=== PATIENT | female | born 2000 | race Asian ===

== ENCOUNTER 2025-07-11 02:57 | Inpatient (IN) | payer OTHER, MEDICAID, SELFPAY ==
[2025-07-11] VITALS (141 sets, daily range): BP systolic 66–140; BP diastolic 33–79; PULSE 60–136; RESP 16; TEMP 36.5–37.2; O2SAT 86–100; BMI 24.5
[2025-07-11 03:06] LABS: ROM Internal Control Test YES-OK TO RESULT pt. (Internal QC)
[2025-07-11 03:10] LABS: ROM Patient Test POSITIVE (Negative); Record Kit Lot#, ROM+ K3358
--- OUTSIDE RECORDS SUMMARY | 2025-07-11 03:20 | XMS RPT_ITS | CCD ---
Author Organization [facility] CliniSymo Care Team Providers Care Software Release Engineer Name Role Phone Roselyn OCCUPATIONAL THERAPY ASST.Aayush ROSADO Primary Care Provider ROSELYN AAYUSH M Primary Care Unavailable MELODY SAUER Referring Unavailable DANNIELLE ALMARAZ Attending Unavailable ORIANA CAMACHO Referring Unavailable ROSELYN, AAYUSH M Primary Care Unavailable CRESCENCIO MOLINA Attending Unavailable ORIANA CAMACHO Referring Unavailable ROSELYN, AAYUSH M Primary Care Unavailable CRESCENCIO MOLINA Attending Unavailable ORIANA CAMACHO Referring Unavailable ROSELYN, AAYUSH M Primary Care Unavailable DANNIELLE ALMARAZ Attending Unavailable ORIANA CAMACHO Referring Unavailable ROSELYN, AAYUSH M Primary Care Unavailable DANNIELLE ALMARAZ Attending Unavailable ORIANA CAMACHO Referring Unavailable ROSELYN, AAYUSH M Primary Care Unavailable ROSELYN, AAYUSH M Attending Unavailable ROSELYN, AAYUSH M Primary Care Unavailable ROSELYN, AAYUSH M Referring Unavailable ROSELYN, AAYUSH M Primary Care Unavailable DANNIELLE ALMARAZ Attending Unavailable ORIANA CAMACHO Referring Unavailable ROSELYN, AAYUSH M Primary Care Unavailable SHAWNA WILSON Referring Unavailable ROSELYN, AAYUSH M Primary Care Unavailable SHAWNA WILSON Referring Unavailable SHAWNA WILSON Attending Unavailable ROSELYN, AAYUSH M Primary Care Unavailable HAKOFFI, AUGUSTIN Referring Unavailable ROSELYN, AAYUSH M Primary Care Unavailable SHAWNA WILSON Attending Unavailable ROSELYN, AAYUSH M Primary Care Unavailable SHAWNA WILSON Attending Unavailable ROSELYN, AAYUSH M Primary Care Unavailable MELODY SAUER Attending Unavailable ROSELYN, AAYUSH M Primary Care Unavailable MELODY SAUER Attending Unavailable ROSELYN, AAYUSH M Primary Care Unavailable SHAWNA WILSON Attending Unavailable ROSELYN, AAYUSH M Primary Care Unavailable HAURY, AUGUSTIN Referring Unavailable ROSELYN, AAYUSH M Primary Care Unavailable ORIANA CAMACHO Attending Unavailable SHAWNA WILSON Referring Unavailable ROSELYN, AAYUSH M Primary Care Unavailable MELODY SAUER Attending Unavailable ROSELYN, AAYUSH M Primary Care Unavailable ROSELYN, AAYUSH M Primary Care Unavailable SHAWNA WILSON Attending Unavailable ROSELYN, AAYUSH M Primary Care Unavailable ROSELYN, AAYUSH M Primary Care Unavailable ORIANA CAMACHO Attending Unavailable ROSELYN, AAYUSH M Primary Care Unavailable PEREZ FRENCH Attending Unavailable AUGUSTIN BOYCE Attending Unavailable ROSELYN, AAYUSH M Primary Care Unavailable ROSELYN, AAYUSH M Primary Care Unavailable MANDY CALDWELL Attending ZINA Hurd Attending Unavailable ROSELYN, AAYUSH M Primary Care Unavailable ROSELYN, AAYUSH M Primary Care Unavailable BOUCHRA CARRASCO Attending Unavailable AUGUSTIN BOYCE Attending Unavailable ROSELYN, AAYUSH M Primary Care Unavailable AUGUSTIN BOYCE Referring Unavailable ROSELYN, AAYUSH M Primary Care Unavailable ROSELYN, AAYUSH M Primary Care Unavailable MANDY CALDWELL Attending Pepito mcmanus ROSELYN, AAYUSH M Primary Care Unavailable MELODY SAUER Attending Unavailable Medications Current Medications Medication Drug Class(es) Dates Sig (Normalized) Sig (Original) aspirin 81 mg delayed release oral tablet (20 sources) Platelet Aggregation Inhibitor, Nonsteroidal Anti-inflammatory Drug Start: 12-30-2024 take 1 tablet by mouth once daily aspirin, enteric coated (ECOTRIN LOW STRENGTH) 81 mg EC tablet Indications: Encounter for supervision of high risk in first trimester, antepartum (HCC) , 7 weeks gestation of (HCC) , with uncertain dates in first trimester (HCC) , Depression with anxiety , Hx of migraines Take 1 tablet by mouth once daily. 90 tablet 3 12/30/2024 Active hydrocortisone 25 mg/ml topical cream (17 sources) Corticosteroid Start: 04-05-2025 hydrocortisone (ANUSOL-HC) 2.5 % rectal cream by RECTAL route two times a day. 28 g 1 04/05/2025 Active hydrocortisone acetate 5 mg/ml / lidocaine hydrochloride 30 mg/ml rectal cream (12 sources) Antiarrhythmic, Corticosteroid, Amide Local Anesthetic Start: 05-04-2025 Lidocaine-Hydrocort isone Ac 3-0.5 % crea by RECTAL route four times a day as needed. 7 g 3 05/04/2025 Active lidocaine 0.04 mg/mg topical gel (2 sources) Antiarrhythmic, Amide Local Anesthetic Start: 05-11-2025 End: 05-18-2025 lidocaine 4 % gel Apply to affected area as needed for up to 7 days. 30 g 05/11/2025 05/18/2025 Active pantoprazole 20 mg delayed release oral tablet (5 sources) Proton Pump Inhibitor Start: 06-01-2025 take 1 tablet by mouth once daily pantoprazole DR (PROTONIX) 20 mg tablet Take 1 tablet by mouth once daily. 30 tablet 2 06/01/2025 Active no115/iron/folic acid ( 19 ORAL) (20 sources) no115/iron/folic acid ( 19 ORAL) Take by mouth. Active sertraline 100 mg oral tablet (20 sources) Serotonin Reuptake Inhibitor Start: 02-24-2025 take 1 tablet by mouth once daily sertraline (ZOLOFT) 100 mg tablet Indications: Depression with anxiety Take 1 tablet by mouth once daily. 90 tablet 2 02/24/2025 Active Start: 01-06-2025 take 1 tablet by jose th once daily sertraline (ZOLOFT) 50 mg tablet Indications: Depression with anxiety Take 1 tablet by mouth once daily. 90 tablet 2 01/06/2025 Active Completed/Discontinued Medications Medication Drug Class(es) Dates Sig (Normalized) Sig (Original) FLUoxetine 10 mg oral capsule (1 source) Serotonin Reuptake Inhibitor End: 12-30-2024 take 1 capsule by mouth once daily in the morning FLUoxetine (PROZAC) 10 mg capsule TAKE 1 CAPSULE BY MOUTH DAILY IN THE MORNING 12/30/2024 Discontinued propranolol hydrochloride 10 mg oral tablet (1 source) beta-Adrenergic Tiffanie End: 12-30-2024 take 1 tablet by mouth once daily as needed propranolol (INDERAL) 10 mg tablet Take 1 tablet by mouth once daily as needed. 12/30/2024 Discontinued SUMAtriptan 50 mg oral tablet (1 source) Serotonin-1b and Serotonin-1d Receptor Agonist Start: 08-04-2024 End: 12-30-2024 take 1 tablet by mouth every two hours as needed SUMAtriptan (IMITREX) 50 mg tablet TAKE 1 TABLET BY MOUTH AND REPEAT AFTER 2 HOURS NEEDED 1 DAY 08/04/2024 12/30/2024 Discontinued Problems Active Problems Problem Classification Problem Date Documented Da te Episodic/Chronic Anal and rectal conditions (3 sources) Anorectal pain; Translations: [Other specified diseases of anus and rectum] Onset: 05-05-2025 05-04-2025 Episodic Anxiety disorders (20 sources) Mixed anxiety and depressive disorder; Translations: [Other specified anxiety disorders] Onset: 12-30-2024 12-30-2024 Chronic Genitourinary symptoms and ill-defined conditions (4 sources) Increased frequency of urination; Translations: [Frequency of micturition] Onset: 01-06-2025 01-06-2025 Episodic Hemorrhoids (9 sources) Hemorrhoids; Translations: [Unspecified hemorrhoids] Onset: 04-05-2025 04-05-2025 Episodic Other complications of (13 sources) High risk ; Translations: [Supervision of high risk , unspecified, first trimester] Onset: 12-30-2024 12-30-2024 Episodic Other complications of (1 source) Vaginal discharge; Translations: [Other specified related conditions, first trimester] 01-06-2025 Episodic Other complications of (9 sources) Complication occurring during ; Translations: [ complication before ] Onset: 05-11-2025 05-11-2025 Episodic Other complications of (7 sources) Heartburn; Translations: [Other specified related conditions, third trimester] Onset: 06-01-2025 06-01-2025 Episodic Other complications of (1 source) Diseases of the digestive system complicating , third trimester; Translations: [Constipation during in third trimester (HCC)] Onset: 06-15-2025 Episodic Other complications of (1 source) Other specified related conditions, third trimester; Translations: [Heartburn during in third trimester (HCC)] Onset: 06-01-2025 Episodic Other female genital disorders (1 source) Pruritus of vagina; Translations: [Other specified noninflammatory disorders of vagina] 05-18-2025 Episodic Other female genital disorders (2 sources) Other specified noninflammatory disorders of vagina; Translations: [Vaginal itching] Onset: 01-06-2025 Episodic Other gastrointestinal disorders (20 sources) Irritable bowel syndrome characterized by constipation; Translations: [Irritable bowel syndrome with constipation] Onset: 03-09-2025 03-09-2025 Chronic Other gastrointestinal disorders (2 sources) Irritable bowel syndrome with constipation; Translations: [Irritable bowel syndrome with constipation] Onset: 03-09-2025 Chronic Other gastrointestinal disorders (3 sources) Constipation, unspecified; Translations: [Constipation during in first trimester (HCC)] Onset: 12-30-2024 Episodic Other gastrointestinal disorders (1 source) Heartburn; Translations: [Heartburn during in third trimester (HCC)] Onset: 06-01-2025 Episodic Other and delivery including normal (20 sources) test positive; Translations: [Encounter for test, result positive] Onset: 12-27-2024 Resolved: 06-01-2025 12-15-2024 Episodic Residual codes; unclassified (1 source) Medical care unavailable; Translations: [Procedure and treatment not carried out for other reasons] 12-24-2024 Episodic Residual codes; unclassified (3 sources) Gestation period, 7 weeks; Translations: [Less than 8 weeks gestation of ] 12-30-2024 Episodic Residual codes; unclassified (1 source) Gestation period, 9 weeks; Translations: [9 weeks gestation of ] 01-06-2025 Episodic Residual codes; unclassified (4 sources) Gestation period, 14 weeks; Translations: [14 weeks gestation of ] 02-09-2025 Episodic Residual codes; unclassified (1 source) Gestation period, 18 weeks; Translations: [18 weeks gestation of ] 03-09-2025 Episodic Residual codes; unclassified (1 source) Gestation period, 20 weeks; Translations: [20 weeks gestation of ] 03-28-2025 Episodic Residual codes; unclassified (1 source) Gestation period, 22 weeks; Translations: [22 weeks gestation of ] 04-05-2025 Episodic Residual codes; unclassified (1 source) Gestation period, 23 weeks; Translations: [23 weeks gestation of ] 04-15-2025 Episodic Residual codes; unclassified (1 source) Gestation period, 26 weeks; Translations: [26 weeks gestation of ] 05-05-2025 Episodic Residual codes; unclassified (1 source) Gestation period, 28 weeks; Translations: [28 weeks gestation of ] 05-18-2025 Episodic Residual codes; unclassified (1 source) Gestation period, 30 weeks; Translations: [30 weeks gestation of ] 06-01-2025 Episodic Residual codes; unclassified (1 source) Gestation period, 32 weeks; Translations: [32 weeks gestation of ] 06-15-2025 Episodic Residual codes; unclassified (1 source) 34 weeks gestation of ; Translations: [34 weeks gestation of (HCC)] Onset: 06-29-2025 Episodic Residual codes; unclassified (1 source) 32 weeks gestation of ; Translations: [32 weeks gestation of (HCC)] Onset: 06-15-2025 Episodic Residual codes; unclassified (1 source) 30 weeks gestation of ; Translations: [30 weeks gestation of (HCC)] Onset: 06-01-2025 Episodic Residual codes; unclassified (1 source) 28 weeks gestation of ; Translations: [28 weeks gestation of (HCC)] Onset: 05-18-2025 Episodic Residual codes; unclassified (1 source) 26 weeks gestation of ; Translations: [26 weeks gestation of (HCC)] Onset: 05-05-2025 Episodic Unclassified (18 sources) [facility] Education - COMMON Onset: 12-30-2024 12-30-2024 Unclassified (18 sources) Education - [place] Onset: 12-30-2024 12-30-2024 Unclassified (1 source) complication before (HCC); Translations: [ complication before (HCC)] Onset: 05-11-2025 Past or Other Problems Problem Classification Problem Date Documented Date Episodic/Chronic Immunizations and screening for infectious disease (12 sources) Patient encounter status; Translations: [Encounter for screening for infections with a predominantly sexual mode of transmission] Onset: 12-13-2024 12-13-2024 Episodic Other complications of (20 sources) Vomiting of , unspecified; Translations: [Unspecified vomiting of , unspecified as to episode of care or not applicable] Onset: 12-30-2024 Resolved: 06-01-2025 12-30-2024 Episodic Other complications of (20 sources) Diseases of the digestive system complicating , first trimester; Translations: [Other current conditions classifiable elsewhere of mother, antepartum condition or complication] Onset: 12-30-2024 Resolved: 06-15-2025 12-30-2024 Episodic Other complications of (1 source) Supervision of high risk , unspecified, second trimester; Translations: [Encounter for supervision of high risk in second trimester, antepartum ([facility])] Onset: 12-30-2024 Episodic Other complications of (1 source) Supervision of high risk , unspecified, first trimester; Translations: [Encounter for supervision of high risk in first trimester, antepartum ([facility])] Onset: 12-30-2024 Episodic Other complications of (1 source) Other specified related conditions, first trimester; Translations: [Vaginal discharge during in first trimester ([facility])] Onset: 01-06-2025 Episodic Other connective tissue disease (20 sources) Spasm; Translations: [Other muscle spasm] Onset: 03-09-2025 03-09-2025 Episodic Other connective tissue disease (1 source) Other muscle spasm; Translations: [Muscle spasm] Onset: 03-09-2025 Episodic Other nervous system disorders (20 sources) H/O: migraine; Translations: [Personal history of other diseases of the nervous system and sense organs] Onset: 12-30-2024 12-30-2024 Episodic Other nervous system disorders (1 source) Personal history of other diseases of the nervous system and sense organs; Translations: [Hx of migraines] Onset: 12-30-2024 Episodic Other screening for suspected conditions (not mental disorders or infectious disease) (6 sources) Encounter for screening for diseases of the blood and blood-forming organs and certain disorders involving the immune mechanism; Translations: [Encounter for screening for diabetes mellitus] Onset: 12-13-2024 Episodic Ovarian cyst (20 sources) Cyst of right ovary; Translations: [Unspecified ovarian cyst, right side] Onset: 01-27-2025 01-27-2025 Episodic Residual codes; unclassified (1 source) 22 weeks gestation of ; Translations: [22 weeks gestation of ([facility])] Onset: 04-05-2025 Episodic Residual codes; unclassified (1 source) 14 weeks gestation of ; Translations: [14 weeks gestation of ([facility])] Onset: 03-28-2025 Episodic Residual codes; unclassified (1 source) 20 weeks gestation of ; Translations: [20 weeks gestation of ([facility])] Onset: 03-28-2025 Episodic Residual codes; unclassified (1 source) 18 weeks gestation of ; Translations: [18 weeks gestation of (HCC)] Onset: 03-09-2025 Episodic Residual codes; unclassified (1 source) 16 weeks gestation of ; Translations: [16 weeks gestation of (HCC)] Onset: 02-24-2025 Episodic Residual codes; unclassified (1 source) Less than 8 weeks gestation of ; Translations: [7 weeks gestation of (HCC)] Onset: 01-27-2025 Episodic Residual codes; unclassified (1 source) 12 weeks gestation of ; Translations: [12 weeks gestation of (HCC)] Onset: 01-27-2025 Episodic Residual codes; unclassified (1 source) 9 weeks gestation of ; Translations: [9 weeks gestation of ([facility])] Onset: 01-06-2025 Episodic Residual codes; unclassified (1 source) Procedure and treatment not carried out for other reasons; Translations: [Treatment not available] Onset: 12-24-2024 Episodic NEGATED: Highlighted row has been ruled out!Unclassified (1 source) No known active problems 12-13-2024 Results Test Name Value Interpretation Reference Range Facil ity CNOVon 06-29-2025 CNOV Office Visit (OBGYWM ) RENETTA KAUFMAN ([id number]) 2 F Date Time Provider Department 06/29/25 2:30 PM SHAWNA WILSON OBGYWM During your visit today, we recorded the following information about you: Blood pressure Weight 96/62 61.2 kg Shawna Wilson APRN.CNM 06/29/2025 3:25 PM Signed CP-CENTERING S: Renetta Kaufman is a 25 year old female who presents at 34 weeks gestation for a routine visit/ centering group. Denies headache, visual changes, chest pain, shortness of breath, vaginal bleeding, leakage of fluid, or dysuria. Feeling well, no complaints. O: See flow sheet Gen: No apparent distress Abd: Gravid, non tender ASSESSMENT/PLAN: 1. 34 weeks gestation of 2. Encounter for supervision of normal first in third trimester 3. Heartburn during in third trimester 4. Depression with anxiety - Attending CBE class this weekend - Protonix 20 mg PO Daily - Continue Zoloft 100 mg PO Daily - Continue vitamin and ASA - Patient reports feeling increased anxiety over baby/upcoming delivery. Has racing thoughts at night. - Support provided and questions answered- may talk to psych about increase in Zoloft or adding in anti-anxiety medication. - Discussed stopping herself from getting onto internet/ [employer] about questions and instead asking provider etc. - PTL precautions reviewed and when to call office - RTO 2 weeks for SIENA with GBS Shawna Wilson APRN.Patt Israel LPN 06/29/2025 2:34 PM Signed SEQUENTIAL SCREENINGS [facility] offers sequential screenings for women who are interested in screenings for chromosomal abnormalities and certain defects during a . The sequential screen combines ultrasound and blood tests to determine the risk of chromosomal abnormalities, including Down's Syndrome (Trisomy 21) and Trisomy 18, as well as open neural tube defects including spina bifida. Ultrasound examination is performed between 11 weeks and 13 weeks gestational age. Blood tests are drawn after the ultrasound and again later in the between 15 and 21 weeks gestational age. Please let your physician know if you are interested in this testing. It will require an appointment with our mechanical sound technician. This is not an ultrasound performed by a physician in our office during a routine visit. SIGNS AND SYMPTOMS OF LABOR 1. Contractions every 10 minutes or more often 2. Clear, pink, or brownish fluid (water) leaking from vagina 3. Feeling that baby is pushing down, pressure 4. Low, dull backache 5. Cramps that feel like a period 6. Cramps with or without diarrhea If you notice any of the above symptoms, contact our office at [phone] and ask to speak with a nurse. After hours, you can call doctors registry at [phone] OR call [facility] at [phone] and ask to have the doctor business operations manager paged. If you consider this an emergency, dial or go to your nearest emergency department. NEED HELP? Are you dealing with a violent or abusive relationship? Are you a victim of rape or sexual assult? Call [facility] ([place]) 24 hour Crisis Hotline: 908.179.1387 or 399-337-9618. MANUAL Your Guide to a Healthy manual is now on-line. Visit [email or web address] to download your free copy Allergies As of Date: 06/29/2025 (No Known Allergies) Date Reviewed: 06/29/2025 Reviewed by: Patt Bennett LPN - Fully Assessed Reason for Visit: Care [86] Primary Visit Diagnosis:34 weeks gestation of ([facility]) [Z3A.34] Other Visit Diagnoses:Encounter for supervision of normal first in third trimester ([facility]) [Z34.03] Heartburn during in third trimester ([facility]) [O26.893, R12] Depression with anxiety [F41.8] Order(s):URINE OB DIP B/O [[id number]] Order #: [id number] Prescriptions as of 06/29/2025 - pantoprazole DR (PROTONIX) 20 mg tablet Take 1 tablet by mouth once daily. - sertraline (ZOLOFT) 100 mg tablet Take 1 tablet by mouth once daily. - aspirin, enteric coated (ECOTRIN LOW STRENGTH) 81 mg EC tablet Take 1 tablet by mouth once daily. - no115/iron/folic acid ( 19 ORAL) Take by mouth. Problem List As Of Date 06/29/2025 Noted Resolved Depression with anxiety [F41.8] 12/30/2024 Hx of migraines [Z86.69] 12/30/2024 Nausea and vomiting during (HCC) [O21*12/30/2024 06/01/2025 Constipation during in first trimeste*12/30/2024 with uncertain dates in first trimest*12/30/2024 06/01/2025 Ovarian cyst, right [N83.201] 01/27/2025 Muscle spasm [M62.838] 03/09/2025 Irritable bowel syndrome with constipation [K58*03/09/2025 Encounter for supervision of normal first pregn*03/09/2025 M-Power [O99.891] 05/11/2025 Heartburn during (HCC) [O26.899, R12 (more content not included)... Normal [facility] CNPNon 06-29-2025 CNPN Telephone (OBGYWM) RENETTA KAUFMAN ([id number]) 2 F Date Time Provider Department 06/29/25 SHAWNA WILSON OBFUNMILAYO During your visit today, we recorded the following information about you: Elijah Marks, RN 06/29/2025 4:44 PM Signed I called patient but she was unable to hear me . If she calls back let her know I am having Luz Elena schedule the remainder of her Centering appointments and weekly appointments after 36weeks. They will be available to view in [employer] Allergies As of Date: 06/29/2025 (No Known Allergies) Date Reviewed: 06/29/2025 Reviewed by: Patt Bennett LPN - Fully Assessed Reason for Visit: Appointment [[id number]] Prescriptions as of 06/29/2025 - pantoprazole DR (PROTONIX) 20 mg tablet Take 1 tablet by mouth once daily. - sertraline (ZOLOFT) 100 mg tablet Take 1 tablet by mouth once daily. - aspirin, enteric coated (ECOTRIN LOW STRENGTH) 81 mg EC tablet Take 1 tablet by mouth once daily. - no115/iron/folic acid ( 19 ORAL) Take by mouth. Problem List As Of Date 06/29/2025 Noted Resolved Depression with anxiety [F41.8] 12/30/2024 Hx of migraines [Z86.69] 12/30/2024 Nausea and vomiting during (HCC) [O21*12/30/2024 06/01/2025 Constipation during in first trimeste*12/30/2024 with uncertain dates in first trimest*12/30/2024 06/01/2025 Ovarian cyst, right [N83.201] 01/27/2025 Muscle spasm [M62.838] 03/09/2025 Irritable bowel syndrome with constipation [K58*03/09/2025 Encounter for supervision of normal first pregn*03/09/2025 M-Power [O99.891] 05/11/2025 Heartburn during (HCC) [O26.899, R12] 06/01/2025 Encounter Status:Closed by ELIJAH MARKS on 06/29/25 Normal [facility] [id number] 06-27-2025 [id number] HNO ID: [id number] Author: DANNIELLE ALMARAZ PT Service: ? Author Type: Physical Therapist Type: [id number] Filed: 06/27/2025 13:04 Note Text: [facility] Physical Therapy Plan of Care Certification Patient Name: Renetta Kaufman : 2000 [facility] #: [id number] Date: 06/27/2025 To: Oriana Camacho MD From Therapist: Dannielle Almaraz PT RE: Patient Certification/ Recertification Your review, approval and electronic signature are required in order to comply with Payor: [employer] / Plan: [employer] PPO / Product Type: PPO / regulations. The identified Physical Therapy PLAN OF CARE for the patient is as follows: O99.611, K59.00 Constipation during in first trimester (HCC) (primary encounter diagnosis) K58.1 Irritable bowel syndrome with constipation M62.838 Muscle spasm PLAN OF CARE UPDATE: Assessment: Renetta Kaufman demonstrates minimal improvement in physical activities and recreational activities. The patient has progressed toward goals. Patient continues to present with impairments in independence in exercise and symptom management that interfere with physical activities, recreational activities . Current prognosis is Good due to: current objective clinical presentation, good support system/ coping skills . The patient will benefit from continued skilled therapy services to meet the updated goals for this plan of care as noted below. Goals for Episode of Care: established 03/09/25 , updated on 04/13/2025, 05/17/25 Patient demonstrates independence and compliance with home exercise program.-PROGRESSING Patient displays improved range of motion, coordination, and muscle dynamics of pelvic floor as evidenced by the ability to lengthen without paradoxical contraction at least 90% of the time to normalize bladder/bowel function; reduce pelvic pain.- PROGRESSING Patient reports increased ability to fully empty bladder/bowels at least 90% of the time to normalize bladder/bowel function. - MET Patient reports increased water intake to >60 ounces/day to promote bladder and bowel health.- MET Patient demonstrates ability to perform diaphragmatic breathing and relaxation practice independently to allow for decreased muscle tightness, decreased pain, and improved bladder/bowel function. - MET Patient will report decreased pain rating by 2 points to meet minimal clinical important difference for numeric pain rating scale. - MET Patient Goals: healthy , improve bowel emptying Time Frame for Goals and Treatment : 09/25/25 (KELLI) Planned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 Eosinophils (Bld) [#/Vol] 0.05 10*3/uL Normal <0.46 [facility] Comment on above: Order Comment: Speci men Type: BLOOD SPECIMEN Ordering Facility: [facility] Address: [address] [place] [address] Performed By: #### 5 7021-8 #### [facility] CLIA [id number] [address] [place] [address] [place] Eosinophils/100 WBC (Bld) 0.5 % Normal [facility] Comment on above: Order Comment: Speci men Type: BLOOD SPECIMEN Ordering Facility: [facility] Address: [address] [place] [address] Performed By: #### 5 7021-8 #### [facility] CLIA [id number] [address] [place] [address] [place] Erythrocyte distribution width (RBC) [Ratio] 12.2 % Normal 11.5-15.0 [facility] Comment on above: Order Comment: Speci men Type: BLOOD SPECIMEN Ordering Facility: [facility] Address: [address] [place] [address] Performed By: #### 5 7021-8 #### [facility] CLIA [id number] [address] [place] [address] [place] Hematocrit (Bld) [Volume fraction] 36.0 % Normal 36.0-46.0 [facility] Comment on above: Order Comment: Speci men Type: BLOOD SPECIMEN Ordering Facility: [facility] Address: [address] [place] [address] Performed By: #### 5 7021-8 #### [facility] CLIA [id number] [address] [place] [address] [place] Hemoglobin (Bld) [Mass/Vol] 12.6 g/dL Normal 11.5-15.5 [facility] Comment on above: Order Comment: Speci men Type: BLOOD SPECIMEN Ordering Facility: [facility] Address: [address] [place] [address] Performed By: #### 5 7021-8 #### [facility] CLIA [id number] [address] [place] [address] [place] Immature granulocytes (Bld) [#/Vol] 10*3/uL Normal <0.10 [facility] Comment on above: Order Comment: Speci men Type: BLOOD SPECIMEN Ordering Facility: [facility] Address: [address] [place] [address] Performed By: #### 5 7021-8 #### [facility] CLIA [id number] [address] [place] [address] [place] Immature granulocytes/100 WBC (Bld) 0.2 % Normal [facility] Comment on above: Order Comment: Speci men Type: BLOOD SPECIMEN Ordering Facility: [facility] Address: [address] [place] [address] Performed By: #### 5 7021-8 #### [facility] CLIA [id number] [address] [place] [address] [place] Lymphocytes (Bld) [#/Vol] 2.14 10*3/uL Normal 1.00-4.00 [facility] Comment on above: Order Comment: Speci men Type: BLOOD SPECIMEN Ordering Facility: [facility] Address: [address] [place] [address] Performed By: #### 5 7021-8 #### [facility] CLIA [id number] [address] [place] [address] [place] Lymphocytes/100 WBC (Bld) 21.3 % Normal [facility] Comment on above: Order Comment: Speci men Type: BLOOD SPECIMEN Ordering Facility: [facility] Address: [address] [place] [address] Performed By: #### 5 7021-8 #### [facility] CLIA [id number] [address] [place] [address] [place] MCH (RBC) [Entitic mass] 29.2 pg Normal 26.0-34.0 [facility] Comment on above: Order Comment: Speci men Type: BLOOD SPECIMEN Ordering Facility: [facility] Address: [address] [place] [address] Performed By: #### 5 7021-8 #### [facility] CLIA [id number] [address] [place] [address] [place] MCHC (RBC) [Mass/Vol] 35.0 g/dL Normal 30.5-36.0 [facility] Comment on above: Order Comment: Speci men Type: BLOOD SPECIMEN Ordering Facility: [facility] Address: [address] [place] [address] Performed By: #### 5 7021-8 #### [facility] CLIA [id number] [address] [place] [address] [place] MCV (RBC) [Entitic vol] 83.5 fL Normal 80.0-100.0 [facility] Comment on above: Order Comment: Speci men Type: BLOOD SPECIMEN Ordering Facility: [facility] Address: [address] [place] [address] Performed By: #### 5 7021-8 #### [facility] CLIA [id number] [address] [place] [address] [place] Monocytes (Bld) [#/Vol] 0.45 10*3/uL Normal <0.87 [facility] Comment on above: Order Comment: Speci men Type: BLOOD SPECIMEN Ordering Facility: [facility] Address: [address] [place] [address] Performed By: #### 5 7021-8 #### [facility] CLIA [id number] [address] [place] [address] [place] Monocytes/100 WBC (Bld) 4.5 % Normal [facility] Comment on above: Order Comment: Speci men Type: BLOOD SPECIMEN Ordering Facility: [facility] Address: [address] [place] [address] Performed By: #### 5 7021-8 #### [facility] CLIA [id number] [address] [place] [address] [place] Neutrophils (Bld) [#/Vol] 7.32 10*3/uL Normal 1.45-7.50 [facility] Comment on above: Order Comment: Speci men Type: BLOOD SPECIMEN Ordering Facility: [facility] Address: [address] [place] [address] Performed By: #### 5 7021-8 #### [facility] CLIA [id number] [address] [place] [address] [place] Neutrophils/100 WBC (Bld) 72.9 % Normal [facility] Comment on above: Order Comment: Speci men Type: BLOOD SPECIMEN Ordering Facility: [facility] Address: [address] [place] [address] Performed By: #### 5 7021-8 #### [facility] CLIA [id number] [address] [place] [address] [place] Nucleated RBC (Bld) [#/Vol] 10*3/uL Normal <0.01 [facility] Comment on above: Order Comment: Speci men Type: BLOOD SPECIMEN Ordering Facility: [facility] Address: [address] [place], [place] [address] Performed By: #### 5 7021-8 #### [facility] CLIA [id number] [address] [place] [address] [place] Nucleated RBC/100 WBC (Bld) [Ratio] 0.0 /100 WBC Normal [facility] Comment on above: Order Comment: Speci men Type: BLOOD SPECIMEN Ordering Facility: [facility] Address: [address] [place] [address] Performed By: #### 5 7021-8 #### [facility] CLIA [id number] [address] [place] [address] [place] Platelet mean volume (Bld) [Entitic vol] 8.7 fL Low 9.0-12.7 [facility] Comment on above: Order Comment: Speci men Type: BLOOD SPECIMEN Ordering Facility: [facility] Address: [address] [place] [address] Performed By: #### 5 7021-8 #### [facility] CLIA [id number] [address] [place] [address] [place] Platelets (Bld) [#/Vol] 256 10*3/uL Normal 150-400 [facility] Comment on above: Order Comment: Speci men Type: BLOOD SPECIMEN Ordering Facility: [facility] Address: [address] [place] [address] Performed By: #### 5 7021-8 #### [facility] CLIA [id number] [address] [place] [address] [place] RBC (Bld) [#/Vol] 4.31 10*6/uL Normal 3.90-5.20 [facility] Comment on above: Order Comment: Speci men Type: BLOOD SPECIMEN Ordering Facility: [facility] Address: [address] [place] [address] Performed By: #### 5 7021-8 #### [facility] CLIA [id number] [address] [place] [address] [place] WBC (Bld) [#/Vol] 10.04 10*3/uL Normal 3.70-11.00 [facility] Comment on above: Order Comment: Speci men Type: BLOOD SPECIMEN Ordering Facility: [facility] Address: [address] [place] [address] Performed By: #### 5 7021-8 #### [facility] CLIA [id number] [address] [place] [address] [place] HBV surface Ag Ser Qlon 01-05 HBV surface Ag Ql (S) Negative Normal Negative [facility] Comment on above: Order Comment: Speci men Type: BLOOD SPECIMEN Ordering Facility: [facility] Address: [address] [place] [address] Performed By: #### 5 7021-8 #### [facility] CLIA [id number] [address] [place] [address] [place] HCV Ab Ser Qlon 01-27-2025 HCV Ab Ql (S) Negative Normal Negative [facility] Comment on above: Order Comment: Speci men Type: BLOOD SPECIMENOrdering Facility: [facility] Address: [address] [place] [address] Result Comment: The result suggests no evidence of infection with Hepatitis C virus. Should recent infection be suspected, repeat testing may be considered 4-6 weeks after this draw. Performed By: #### 1 6128-1 ####[facility] [id number] [place] [address] [place] HIV 1+2 Ab IA Qlon HIV 1 and 2 Ab IA.rapid Nom (S/P/Bld) Normal [facility] Comment on above: Order Comment: Speci men Type: BLOOD SPECIMEN Ordering Facility: [facility] Address: [address] [place] [address] Result Comment: Test not indicated. Performed By: #### 5 7021-8 #### [facility] CLIA [id number] [address] [place] [address] [place] HIV 1+2 Ab+HIV1 p24 Ag IA Ql Non-Reactive Normal Nonreactive [facility] Comment on above: Order Comment: Speci men Type: BLOOD SPECIMEN Ordering Facility: [facility] Address: [address] [place] [address] Performed By: #### 5 7021-8 #### [facility] CLIA [id number] [address] [place] [address] [place] HIV immunoassay testing algorithm interpretation (S/P/Bld) [Interp] Normal [facility] Comment on above: Order Comment: Speci men Type: BLOOD SPECIMEN Ordering Facility: [facility] Address: [address] [place] [address] Result Comment: No e vidence of HIV-1 or HIV-2 infection. Should recent infection be suspected, repeat testing may be considered 2-3 weeks after this draw. [place] Rev. Code 3701.243(E): This information has been disclosed to you from confidential records protected from disclosure by state law. ???You shall make no further disclosure of this information without the specific, written, and informed release of the individual to whom it pertains or as otherwise permitted by state law. A general authorization for the release of medical or other information is not sufficient for the purpose of the release of HIV test results or diagnoses. Performed By: #### 5 7021-8 #### [facility] CLIA [id number] [address] [place] [address] [place] HbA1c (Bld)on 01-27-2025 Average glucose Estimated from glycated hemoglobin (Bld) [Mass/Vol] 85 mg/dL Normal [facility] Comment on above: Order Comment: Speci men Type: BLOOD SPECIMENOrdering Facility: [facility] Address: [address] [place] [address] Result Comment: eAG: (Estimated average glucose) is a calculated value from HgbA1c and is employer relations representative of the average blood glucose level in the last 2-3 month period. Performed By: #### 5 5454-3 ####[facility] LABIA [id number] [place] [address] [place] HbA1c (Bld) [Mass fraction] 4.6 % Normal 4.3-5.6 [facility] Comment on above: Order Comment: Speci chrissy Type: BLOOD SPECIMENOrdering Facility: [facility] Address: [address] [place] [address] Result Comment: [place] Diabetes Association guidelines indicate that patients with HgbA1c in the range 5.7-6.4% are at increased risk for development of diabetes, and intervention by lifestyle modification may be beneficial. HgbA1c greater or equal to 6.5% is considered diagnostic of diabetes. Performed By: #### 5 5454-3 ####[facility] [id number] [address] [place] RUBELLA IGG ANTIBODYon 01-27 RUBELLA IGG AB, QUAL Positive Normal Positive [facility] Comment on above: Order Comment: [facility] Type: BLOOD SPECIMENOrdering Facility: [facility] Address: [address] [place] [address] Result Comment: The result suggests recent or past exposure to Rubella virus or history of Rubella vaccination. Positive result may also be seen due to presence of passively-transferred antibodies. Please correlate with patient's history. Performed By: #### R UBIGG ####[facility] [id number] [place] [address] [place] Reagin and Treponema pallidu m IgG and IgM [Interp]on 01-27-2025 T. pallidum IgG+IgM IA Ql (S) Non-Reactive Normal Nonreactive [facility] Comment on above: Order Comment: Debi lowe Type: BLOOD SPECIMEN Ordering Facility: [facility] Address: [address] [place] [address] Performed By: #### 5 7021-8 #### [facility] CLIA [id number] [address] [place] [address] [place] Reagin+T pallidum IgG+IgM Se rPl-Impon 01-27-2025 Reagin and Treponema pallidum IgG and IgM [Interp] Cannot exclude recent Treponemal infection if specimen collected within 7-10 days after appearance of suspect lesions or 2-3 weeks after an exposure. Clinical correlation is required. Normal [facility] Comment on above: Order Comment: Speci men Type: BLOOD SPECIMEN Ordering Facility: [facility] Address: [address] [place] [address] Performed By: #### 5 7021-8 #### [facility] CLIA [id number] [address] [place] [address] [place] TYPE + SCREEN PRENATALon ABO O Normal [facility] Comment on above: Order Comment: Speci men Type: BLOOD SPECIMENOrdering Facility: [facility] Address: [address] [place] [address] Performed By: #### T SPN ####[facility] [id number] [place] [address] [place] Rh Nom (Bld) Positive Normal [facility] Comment on above: Order Comment: Speci men Type: BLOOD SPECIMENOrdering Facility: [facility] Address: [address] [place] [address] Performed By: #### T SPN ####[facility] [id number] [place] [address] [place] TYPE AND SCREEN EXPIRATION 01/30/2025 23:59 Normal [facility] Comment on above: Order Comment: Speci men Type: BLOOD SPECIMENOrdering Facility: [facility] Address: [address] [place] [address] Performed By: #### T SPN ####[facility] [id number] [place] [address] [place] CNPNon 01-13-2025 CNPN Telephone (PSYRMN) MANDEEPKEDARRENETTA ([id number]) 2 F Date Time Provider Department 01/13/25 NAZIA POOLE PSYRMN During your visit today, we recorded the following information about you: Nazia Poole LISW 01/13/2025 3:31 PM Signed Review of referral with patient. Was patient aware of [facility] referral placement by provider?Yes Is the patient currently connected for care : No If not connected to Care are they agreeable to referral?Yes If agreeable to referral, are they:External Comment: Patient need/preference Assisted in making appt at: Other Providers name: [facility] Location address: virtual Phone number: Appointment date and time: SW placed referral Current priority status of the referral Medium Additional information Patient and SW discussed [facility] referral. Patient stopped medication a few months ago, mood was stable, then noticed increase in anxiety/depression two weeks ago. Patient prescribed medication at most recent OBGYN appointment. Patient is interested in counseling. Patient open to referral to [facility] for IOP for program/flexibility in scheduling/virtual appointments. Patient shared she previously completed IOP with [facility] and had a very positive experience. Patient is interested in learning more about the program for patients, as well as ensuring ability to care for new puppy (8 weeks old) while completing program. SW placed referral to [facility] SW to also send patient resources for counseling for patient upon completion of [facility] services/if patient decides not to engage in [facility] services. SW will follow up with patient. 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 - aspirin, enteric coated (ECOTRIN LOW STRENGTH) 81 mg EC tablet Take 1 tablet by mouth once daily. - no115/iron/folic acid ( 19 ORAL) Take by mouth. Problem List As Of Date 01/13/2025 Noted Resolved Encounter for supervision of high risk pregnanc*12/30/2024 Depression with anxiety [F41.8] 12/30/2024 Hx of migraines [Z86.69] 12/30/2024 Nausea and vomiting during [O21.9] 12/30/2024 Constipation during in first trimeste*12/30/2024 with uncertain dates in first trimest*12/30/2024 Encounter Status:Closed by NAZIA POOLE on 01/13/25 [facility] 01-07-2025 CNPN Telephone (PSYRMN) RENETTA KAUFMAN ([id number]) 2 F Date Time Provider Department 01/07/25 NAZIA POOLE PSYRMN During your visit today, we recorded the following information about you: Nazia Poole LISW 01/07/2025 10:33 AM Signed Phone call to patient regarding [facility] referral. Patient did not answer, left message. [facility] SW can be reached at: [place]: [phone] [employer]:[phone] Allergies As of Date: 01/07/2025 (No Known Allergies) Date Reviewed: 01/06/2025 Reviewed by: Augustin Boyce APRN.MANUFACTURING OPERATIONS MANAGER - Fully Assessed Reason for Visit: Area Operations Director - Other [0778] Cmt: WB Consult Follow Up Prescriptions as of 01/07/2025 - sertraline (ZOLOFT) 50 mg tablet Take 1 tablet by mouth once daily. - aspirin, enteric coated (ECOTRIN LOW STRENGTH) 81 mg EC tablet Take 1 tablet by mouth once daily. - no115/iron/folic acid ( 19 ORAL) Take by mouth. Problem List As Of Date 01/07/2025 Noted Resolved Encounter for supervision of high risk pregnanc*12/30/2024 Depression with anxiety [F41.8] 12/30/2024 Hx of migraines [Z86.69] 12/30/2024 Nausea and vomiting during [O21.9] 12/30/2024 Constipation during in first trimeste*12/30/2024 with uncertain dates in first trimest*12/30/2024 Encounter Status:Closed by NAZIA POOLE on 01/07/25 Normal [facility] BACTERIAL VAGINOSIS NAATon 0 01-06-2025 Lactobacillus crispatus+gasseri+je nsenii + Gardnerella vaginalis + Atopobium vaginae rRNA TEE+probe Ql (Vag fld) Not detected Normal Not detected [facility] Comment on above: Order Comment: Speci men Type: BLOOD SPECIMEN Ordering Facility: [facility] Address: [address] [place] [address] Performed By: #### 5 7021-8 #### [facility] CLIA [id number] [address] [place] [address] [place] Bacteria Ur Culton 5 Bacteria identified Cx Nom (U) ORGANISM ID: 1 <10,000 CFU/ml Normal urogenital devon Normal [facility] Comment on above: Performed By: #### 6 30-4 ####[facility] LABCLIA [id number] [place] [address] [place] HOWARD/TRICHOMONAS NAATon 0 01-06-2025 C. glabrata RNA TEE+probe Ql (Vag fld) Not detected Normal Not detected [facility] Comment on above: Order Comment: Speci men Type: BLOOD SPECIMEN Ordering Facility: [facility] Address: [address] [place] [address] Performed By: #### 5 7021-8 #### [facility] CLIA [id number] [address] [place] [address] [place] Howard sp DNA TEE+probe Ql (Vag fld) Not detected Normal Not detected [facility] Comment on above: Order Comment: Speci men Type: BLOOD SPECIMEN Ordering Facility: [facility] Address: [address] [place] [address] Result Comment: The Howard species group target includes C. albicans, C. tropicalis, C. parapsilosis, and C. dubliniensis. Performed By: #### 5 7021-8 #### [facility] CLIA [id number] [address] [place] [address] [place] T. vaginalis DNA TEE+probe Ql (Unsp spec) Not detected Normal Not detected [facility] Comment on above: Order Comment: Speci men Type: BLOOD SPECIMEN Ordering Facility: [facility] Address: [address] [place] [address] Performed By: #### 5 7021-8 #### [facility] CLIA [id number] [address] [place] [address] [place] UA DIP, URINE (POC)on 2024 BILIRUBIN UA (POCT) Negative Negative [facility] CLARITY UA (POCT) Clear [facility] COLOR UA (POCT) Yellow [facility] GLUCOSE UA (POCT) Negative Negative mg/dL [facility] Hemoglobin Ql (U) Moderate Abnormal Negative [facility] Interpretation and review of laboratory results Abnormal [facility] KETONE UA (POCT) Negative Negative mg/dL [facility] LEUKOCYTES UA (POCT) Trace Abnormal Negative [facility] NITRITE UA (POCT) Negative Negative [facility] PH UA (POCT) 6.5 4.5 - 8.0 [facility] Protein Ql (U) Negative Negative mg/dL [facility] SPECIFIC GRAVITY UA (POCT) 1.015 1.005 - 1.030 [facility] UROBILINOGEN UA (POCT) 0.2 Normal E.U./dL [facility] Location:[facility], [address] [place], [place], [address] [place] [address] POINT OF CARE [facility] Bacteria Ur Culton Bacteria identified Cx Nom (U) ORGANISM ID: 1 10,000 -<50,000 CFU/ml Normal urogenital devon Normal [facility] Comment on above: Performed By: #### 6 30-4 ####[facility] LABCLIA [id number] [place] [address] [place] C. trachomatis+N. gonorrhoea e DNA TEE+probe Ql (Unsp spec)on 12-30-2024 C. trachomatis rRNA TEE+probe Ql (Unsp spec) Not detected Normal Not detected [facility] Comment on above: Order Comment: Speci men Type: BLOOD SPECIMEN Ordering Facility: [facility] Address: [address] [place] [address] Performed By: #### 5 7021-8 #### [facility] CLIA [id number] [address] [place] [address] [place] N. gonorrhoeae rRNA TEE+probe Ql (Unsp spec) Not detected Normal Not detected [facility] Comment on above: Order Comment: Speci men Type: BLOOD SPECIMEN Ordering Facility: [facility] Address: [address] [place] [address] Performed By: #### 5 7021-8 #### [facility] CLIA [id number] [address] [place] [address] [place] PAP TESTon 12-30-2024 ADEQUACY Normal [facility] Comment on above: Order Comment: Speci men Type: FLUID SPECIMENOrdering Facility: [facility] Address: [address] [place] [address] Result Comment: Sati sfactory for interpretation. No endocervical component Performed By: #### L [id number] ####[facility] LABCLIA [id number] [address] OF [place] CASE REPORT Normal [facility] Comment on above: Order Comment: Speci men Type: FLUID SPECIMENOrdering Facility: [facility] Address: [address] [place] [address] Result Comment: Gyne cologic Cytology Report Case: [id number] Authorizing Provider: Augustin Boyce APRN.MANUFACTURING OPERATIONS MANAGER Collected: 12/30/2024 02:44 PM Ordering Location: OB/Gynecology Received: 12/30/2024 04:35 PM First Screen: [place], CT, ASCP Specimen: Pap Test, ThinPrep, Cervix Performed By: #### L [id number] ####[facility] LABCLIA [id number] [place] [address] [place] CLINICAL HISTORY, CYTOLOGY, AIRCRAFT ENGINE MECHANIC Routine Exam Normal [facility] Comment on above: Order Comment: Speci men Type: FLUID SPECIMENOrdering Facility: [facility] Address: [address] [place] [address] Performed By: #### L [id number] ####[facility] LABCLIA [id number] [place] [address] [place] FINAL PERFORMING LAB Normal [facility] Comment on above: Order Comment: Speci men Type: FLUID SPECIMENOrdering Facility: [facility] Address: [address] [place] [address] Result Comment: Tech nical component, ve teacher screening performed at [facility], [address] [place], [place] [address] CLIA# [id number] Diagnostic interpretation performed at [facility], [address] [place], [place] [address] CLIA# [id number] Community Relations Representative: George Contreras M.D. Performed By: #### L [id number] ####[facility] LABCLIA [id number] [place] [id number] [place] INTERPRETATION, CYTOLOGY, AIRCRAFT ENGINE MECHANIC Normal [facility] Comment on above: Order Comment: Speci men Type: FLUID SPECIMENOrdering Facility: [facility] Address: [address] [place] [address] Result Comment: Nega tive for intraepithelial lesion or malignancy. at 0838 EDT Performed By: #### L [id number] ####[facility] LABCLIA [id number] [address] [place] [address] [place] LMP 11/08/2024 Normal [facility] Comment on above: Order Comment: Speci men Type: FLUID SPECIMENOrdering Facility: [facility] Address: [address] [place] [address] Performed By: #### L [id number] ####[facility] LABCLIA [id number] [address] [place] [address] [place] PAP DISCLAIMER COMMENT The Pap Smear is a screening test for cervical cancer. False negative results occur with all screening tests, emphasizing the need for rescreening at recommended intervals, and clinical correlation. Normal [facility] Comment on above: Order Comment: Speci men Type: FLUID SPECIMENOrdering Facility: [facility] Address: [address] [place] [address] Performed By: #### L [id number] ####[facility] LABCLIA [id number] [address] [place] [address] [place] PAP MERCHANDISING LEAD COMMENT This specimen has been analyzed by the ThinPrep Imaging System, an automated imaging and review system, which assists the laboratory in evaluating cells on ThinPrep Pap tests. Following automated imaging, selected sharif from every slide are reviewed by a ve teacher. Normal [facility] Comment on above: Order Comment: Speci men Type: FLUID SPECIMENOrdering Facility: [facility] Address: [address] [place] [address] Performed By: #### L [id number] ####[facility] LABCLIA [id number] [address] [place] [address] [place] TRICHOMONAS VAGINALIS NAATon 12-30-2024 T. vaginalis DNA TEE+probe Ql (Unsp spec) Not detected Normal Not detected [facility] Comment on above: Order Comment: Speci men Type: BLOOD SPECIMEN Ordering Facility: [facility] Address: [address] [place] [address] Performed By: #### 5 7021-8 #### [facility] CLIA [id number] [address] [place] [address] [place] B-HCG SerPl-aCn[place] 5 [place] [address].0 m[IU]/mL High <5.0 [facility] Comment on above: Order Comment: Speci men Type: BLOOD SPECIMEN Ordering Facility: [facility] Address: [address] [place] [address] Result Comment: PIYUSH TITATIVE HCG NORMAL RANGES Weeks of Gestation (Weeks Since LMP) 3 Weeks (5.8-71.2 mIU/mL) 4 Weeks (9.5-750 mIU/mL) 5 Weeks (217-7138 mIU/mL) 6 Weeks (158-25212 mIU/mL) 7 Weeks (3697-261693 mIU/mL) 8 Weeks (34982-770994 mIU/mL) 9 Weeks (65184-982700 mIU/mL) 10 Weeks (54754-922738 mIU/mL) 12 Weeks (96306-922904 mIU/mL) Referenced to 4th IS of [facility] Performed By: #### 2 1198-7 #### [facility] CLIA [id number] [address] [place] [address] [place] CBC panel Auto (Bld)on 12-27 Erythrocyte distribution width (RBC) [Ratio] 11.7 % Normal 11.5-15.0 [facility] Comment on above: Order Comment: Speci men Type: BLOOD SPECIMENOrdering Facility: [facility] Address: [address] [place] [address] Performed By: #### 5 8410-2 ####[facility] LABCLIA [id number] [place] [address] [place] Hematocrit (Bld) [Volume fraction] 41.2 % Normal 36.0-46.0 [facility] Comment on above: Order Comment: Speci men Type: BLOOD SPECIMENOrdering Facility: [facility] Address: [address] [place] [address] Performed By: #### 5 8410-2 ####[facility] LABCLIA [id number] [place] [address] [facility] OF [place] Hemoglobin (Bld) [Mass/Vol] 13.9 g/dL Normal 11.5-15.5 [facility] Comment on above: Order Comment: Speci men Type: BLOOD SPECIMENOrdering Facility: [facility] Address: [address] [place] [address] Performed By: #### 5 8410-2 ####[facility] LABCLIA [id number] [place] [id number] [place] [facility] MCH (RBC) [Entitic mass] 28.7 pg Normal 26.0-34.0 [facility] Comment on above: Order Comment: Speci men Type: BLOOD SPECIMENOrdering Facility: [facility] Address: [address] [place] [address] Performed By: #### 5 8410-2 ####[facility] LABCLIA [id number] [place] [address] [place] MCHC (RBC) [Mass/Vol] 33.7 g/dL Normal 30.5-36.0 [facility] Comment on above: Order Comment: Speci men Type: BLOOD SPECIMENOrdering Facility: [facility] Address: [address] [place] [address] Performed By: #### 5 8410-2 ####[facility] LABCLIA [id number] [place] [id number] [place] [facility] MCV (RBC) [Entitic vol] 85.1 fL Normal 80.0-100.0 [facility] Comment on above: Order Comment: Speci men Type: BLOOD SPECIMENOrdering Facility: [facility] Address: [address] [place] [address] [place] [address] Performed By: #### 5 8410-2 ####[facility] LABCLIA [id number] [facility] [place] [place] [address] [place] Platelet mean volume (Bld) [Entitic vol] 8.8 fL Low 9.0-12.7 [facility] Comment on above: Order Comment: Speci men Type: BLOOD SPECIMENOrdering Facility: [facility] Address: [facility] [place] [id number] Performed By: #### 5 8410-2 ####[facility] LABCLIA [id number] [facility] [place] [place] [address] [facility] Platelets (Bld) [#/Vol] 322 10*3/uL Normal 150-400 [facility] Comment on above: Order Comment: Speci men Type: BLOOD SPECIMENOrdering Facility: [facility] Address: [facility] [place] [address] Performed By: #### 5 8410-2 ####[facility] LABCLIA [id number] [facility] [address] [facility] RBC (Bld) [#/Vol] 4.84 10*6/uL Normal 3.90-5.20 [facility] Comment on above: Order Comment: Speci men Type: BLOOD SPECIMENOrdering Facility: [facility] Address: [address] [place] [address] Performed By: #### 5 8410-2 ####[facility] LABCLIA [id number] [facility] [place] [address] [facility] OF [place] WBC (Bld) [#/Vol] 7.17 10*3/uL Normal 3.70-11.00 [facility] Comment on above: Order Comment: Speci men Type: BLOOD SPECIMENOrdering Facility: [facility] Address: [address] [place] [address] Performed By: #### 5 8410-2 ####[facility] LABCLIA [id number] [facility] [place] [place] [address] [facility] Comprehensive metabolic 2000 panelon 12-27-2024 Albumin [Mass/Vol] 4.4 g/dL Normal 3.9-4.9 [facility] Comment on above: Order Comment: Speci men Type: BLOOD SPECIMENOrdering Facility: [facility] Address: [address] [place] [address] Performed By: #### 2 4323-8, 3016-3, 76363-3 ####[facility] LABCLIA [id number] [place] [address] [facility] ALP [Catalytic activity/Vol] 62 U/L Normal 34-123 [facility] Comment on above: Order Comment: Speci men Type: BLOOD SPECIMENOrdering Facility: [facility] Address: [address] [place] [address] Performed By: #### 2 4323-8, 3016-3, 13213-0 ####[facility] LABCLIA [id number] [place] [address] [facility] ALT With P-5'-P [Catalytic activity/Vol] 17 U/L Normal 7-38 [facility] Comment on above: Order Comment: Speci men Type: BLOOD SPECIMENOrdering Facility: [facility] Address: [address] [place] [address] Performed By: #### 2 4323-8, 3016-3, 68294-0 ####[facility] LABCLIA [id number] [facility] [place] [place] [address] [facility] Anion gap [Moles/Vol] 14 mmol/L Normal 8-15 [facility] Comment on above: Order Comment: Speci men Type: BLOOD SPECIMENOrdering Facility: [facility] Address: [address] [place] [address] Performed By: #### 2 4323-8, 3016-3, 04285-0 ####[facility] LABCLIA [id number] [place] [address] [facility] AST With P-5'-P [Catalytic activity/Vol] 25 U/L Normal 13-35 [facility] Comment on above: Order Comment: Speci men Type: BLOOD SPECIMENOrdering Facility: [facility] Address: [address] [place] [address] Performed By: #### 2 4323-8, 3016-3, 21437-0 ####[facility] LABCLIA [id number] [facility] [place] [address] [place] Bilirubin [Mass/Vol] 0.4 mg/dL Normal 0.2-1.3 [facility] Comment on above: Order Comment: Speci men Type: BLOOD SPECIMENOrdering Facility: [facility] Address: [address] [place] [address] Performed By: #### 2 4323-8, 6-3, 01450-3 ####[facility] LABCLIA [id number] [facility] [place] [address] [place] Calcium [Mass/Vol] 9.7 mg/dL Normal 8.5-10.2 [facility] Comment on above: Order Comment: Speci men Type: BLOOD SPECIMENOrdering Facility: [facility] Address: [address] [place] [address] Performed By: #### 2 4323-8, 3015-3, 41210-3 ####[facility] LABCLIA [id number] [facility] [place] [address] [place] Chloride [Moles/Vol] 98 mmol/L Normal 98-107 [facility] Comment on above: Order Comment: Speci men Type: BLOOD SPECIMENOrdering Facility: [facility] Address: [address] [place], [place] [address] Performed By: #### 2 4323-8, 6-3, 33102-8 ####[facility] LABCLIA [id number] [facility] [place] [address] [place] CO2 [Moles/Vol] 22 mmol/L Normal 22-30 [facility] Comment on above: Order Comment: Speci men Type: BLOOD SPECIMENOrdering Facility: [facility] Address: [address] [place] [address] Performed By: #### 2 4323-8, 3016-3, 64498-7 ####[facility] LABIA [id number] [place] [address] [place] OF [facility] Creatinine [Mass/Vol] 0.61 mg/dL Normal 0.58-0.96 [facility] Comment on above: Order Comment: Debi lowe Type: BLOOD SPECIMENOrdering Facility: [facility] Address: [address] [place] [address] Performed By: #### 2 4323-8, 3016-3, 78752-7 ####[facility] LABIA [id number] [place] [address] [facility] Creatinine and Glomerular filtration rate.predicted panel (S/P/Bld) 129 mL/min/1.73m??? Normal >=60 [facility] Comment on above: Order Comment: Debi lowe Type: BLOOD SPECIMENOrdering Facility: [facility] Address: [address] [place] [address] Result Comment: Nadya mated Glomerular Filtration Rate (eGFR) is calculated using the 2020 CKD-EPI creatinine equation. This equation utilizes serum creatinine, sex, and age as parameters. The creatinine assay has traceable calibration to isotope dilution-mass spectrometry. Refer to KDIGO guidelines for clinical interpretation. In patients with unstable renal function, e.g. those with acute kidney injury, the eGFR may not accurately reflect actual GFR. Performed By: #### 2 4323-8, 6-3, 14167-2 ####[facility] LABIA [id number] [place] [address] [place] Glucose [Mass/Vol] 90 mg/dL Normal 74-99 [facility] Comment on above: Order Comment: Debi lowe Type: BLOOD SPECIMENOrdering Facility: [facility] Address: [address] [place] [address] Result Comment: The [place] Diabetes Association (ADA) provides guidance for cutoff values for fasting glucose and random glucose. The ADA defines fasting as no caloric intake for at least 8 hours. Fasting plasma glucose results between 100 to 125 mg/dL indicate increased risk for diabetes (prediabetes). Fasting plasma glucose results greater than or equal to 126 mg/dL meet the criteria for diagnosis of diabetes. In the absence of unequivocal hyperglycemia, results should be confirmed by repeat testing. In a patient with classic symptoms of hyperglycemia or hyperglycemic crisis, random plasma glucose results greater than or equal to 200 mg/dL meet the criteria for diagnosis of diabetes. Reference: Standards of Medical Care in Diabetes 2016, [place] [employer] Association. Diabetes Care. 2016.39(Suppl 1). Performed By: #### 2 4323-8, 6-3, 12432-6 ####[facility] LABCLIA [id number] [place] [address] [place] Potassium [Moles/Vol] 4.0 mmol/L Normal 3.7-5.1 [facility] Comment on above: Order Comment: Debi lowe Type: BLOOD SPECIMENOrdering Facility: [facility] Address: [address] [place] [address] Performed By: #### 2 4323-8, 3015-12, 42558-7 ####[facility] LABCLIA [id number] [place] [address] [place] Protein [Mass/Vol] 8.0 g/dL Normal 6.3-8.0 [facility] Comment on above: Order Comment: Debi lowe Type: BLOOD SPECIMENOrdering Facility: [facility] Address: [address] [place] [address] Performed By: #### 2 4323-8, 3, 55196-9 ####[facility] LABCLIA [id number] [place] [address] [place] Sodium [Moles/Vol] 134 mmol/L Low 136-144 [facility] Comment on above: Order Comment: Debi lowe Type: BLOOD SPECIMENOrdering Facility: [facility] Address: [address] [place] [address] Performed By: #### 2 4323-8, 3, 42646-3 ####[facility] LABCLIA [id number] [address] [place] Urea nitrogen [Mass/Vol] 4 mg/dL Low 7-21 [facility] Comment on above: Order Comment: Speci men Type: BLOOD SPECIMENOrdering Facility: [facility] Address: [address] [place] [address] Performed By: #### 2 4323-8, 3016-3, 68630-4 ####[facility] LABCLIA [id number] [address] OF [place] HCV Ab Ser Qlon 12-27-2024 HCV Ab Ql (S) Non-Reactive Normal Nonreactive [facility] Comment on above: Order Comment: Speci men Type: BLOOD SPECIMEN Ordering Facility: [facility] Address: [address] [place] [address] Result Comment: The result suggests no evidence of active infection with Hepatitis C virus. Should recent infection be suspected, repeat testing may be considered 4-6 weeks after this draw. Performed By: #### 1 6128-1 #### [facility] CLIA [id number] [address] HIV 1+2 Ab IA Qlon HIV 1 and 2 Ab IA.rapid Nom (S/P/Bld) Normal [facility] Comment on above: Order Comment: Speci men Type: BLOOD SPECIMEN Ordering Facility: [facility] Address: [address] [place] [address] Result Comment: Test not indicated. Performed By: #### 3 1201-7 #### [facility] CLIA [id number] [address] HIV 1+2 Ab+HIV1 p24 Ag IA Ql Non-Reactive Normal Nonreactive [facility] Comment on above: Order Comment: Speci men Type: BLOOD SPECIMEN Ordering Facility: [facility] Address: [address] [place] [address] Result Comment: [place] Rev. Code 3701.243(E): This information has been disclosed to you from confidential records protected from disclosure by state law. ???You shall make no further disclosure of this information without the specific, written, and informed release of the individual to whom it pertains or as otherwise permitted by state law. A general authorization for the release of medical or other information is not sufficient for the purpose of the release of HIV test results or diagnoses. Test methodology for this assay has moved from Siemens Centaur XP to Rebecca rebecca 8000 effective July 09, 2022. Please note there may be a change in the reporting units and/or reference range. Performed By: #### 3 1201-7 #### [facility] CLIA [id number] [address] [place] HIV immunoassay testing algorithm interpretation (S/P/Bld) [Interp] Normal [facility] Comment on above: Order Comment: Speci men Type: BLOOD SPECIMEN Ordering Facility: [facility] Address: [address] [place] [address] Result Comment: No e vidence of HIV-1 or HIV-2 infection. Should recent infection be suspected, repeat testing may be considered 2-3 weeks after this draw. Performed By: #### 3 1201-7 #### [facility] CLIA [id number] 1 [place] [address] [place] Lipid 1996 panelon 5 Cholesterol [Mass/Vol] 124 mg/dL Normal <200 [facility] Comment on above: Order Comment: Speci men Type: BLOOD SPECIMENOrdering Facility: [facility] Address: [address] [place] [address] Result Comment: <200 mg/dL, Desirable 200-239 mg/dL, Borderline high >239 mg/dL, High Performed By: #### 2 4323-8, 3016-3, 97610-2 ####[facility] LABCLIA [id number] [place] [address] [place] Cholesterol in HDL [Mass/Vol] 62 mg/dL Normal >39 [facility] Comment on above: Order Comment: Speci men Type: BLOOD SPECIMENOrdering Facility: [facility] Address: [address] [place] [address] Result Comment: 40-5 9 mg/dL, Acceptable >59 mg/dL, High: Negative risk factor for coronary heart disease <40 mg/dL, Low: Positive risk factor for coronary heart disease Performed By: #### 2 4323-8, 6-3, 48552-6 ####[facility] LABCLIA [id number] [place] [address] [facility] Cholesterol in LDL [Mass/Vol] 41 mg/dL Normal <100 [facility] Comment on above: Order Comment: Debi lowe Type: BLOOD SPECIMENOrdering Facility: [facility] Address: [address] [place] [address] Result Comment: <100 mg/dL, Optimal 100-129 mg/dL, Near optimal/above optimal 130-159 mg/dL, Borderline high 160-189 mg/dL, High >189 mg/dL, Very high Secondary prevention optimal LDL Cholesterol levels are recommended to be < 70 mg/dL Performed By: #### 2 4323-8, 6-3, 17028-6 ####[facility] LABCLIA [id number] [place] [id number] [facility] Cholesterol in LDL/Cholesterol in HDL [Mass ratio] 0.66 {ratio} Normal <2.54 [facility] Comment on above: Order Comment: Debi lowe Type: BLOOD SPECIMENOrdering Facility: [facility] Address: [address] [place] [address] Result Comment: Refe rence: 1. National Cholesterol Education Program ATP III Guideline At-A-Glance Quick Desk Reference: National Heart, Lung, and Blood [place]. National Institutes of Health. 2001: NIH Publication No. 01-3305. 2. An International Atherosclerosis Society position paper: global recommendations for the management of dyslipidemia: executive summary, Atherosclerosis. 2014: 232(2):410-413. Cut Points from the Lipid Research Clinic's Prevalence Study for ages 20 to 24 years can be located in the following reference: Expert Panel on Integrated Guidelines for Cardiovascular Health and Risk Reduction in Children and Adolescents: National Heart, Lung and Blood [place]. Pediatrics. 2011:128(Suppl 5):C716-999. Performed By: #### 2 4323-8, 3016-3, 07202-9 ####[facility] LABCLIA [id number] [facility] [place] [address] [facility] OF [place] Cholesterol in VLDL [Mass/Vol] 21 mg/dL Normal <30 [facility] Comment on above: Order Comment: Speci men Type: BLOOD SPECIMENOrdering Facility: [facility] Address: [address] [place] [id number] Performed By: #### 2 4323-8, 3016-3, 20261-0 ####[facility] LABCLIA [id number] [place] [address] [facility] OF [place] Cholesterol non HDL [Mass/Vol] 62 mg/dL Normal <130 [facility] Comment on above: Order Comment: Speci men Type: BLOOD SPECIMENOrdering Facility: [facility] Address: [address] [place] [address] Result Comment: <130 mg/dL, Optimal 130-159 mg/dL, Near optimal/above optimal 160-189 mg/dL, Borderline high 190-219 mg/dL, High >219 mg/dL, Very high Secondary prevention optimal non HDL Cholesterol levels are recommended to be <100 mg/dL Performed By: #### 2 4323-8, 6-3, 00911-6 ####[facility] LABCLIA [id number] [place] [address] [facility] Cholesterol.total/Ch olesterol in HDL [Mass ratio] 2.00 {ratio} Normal <5.10 [facility] Comment on above: Order Comment: Speci men Type: BLOOD SPECIMENOrdering Facility: [facility] Address: [address] [place] [address] Performed By: #### 2 4323-8, 6-3, 78168-4 ####[facility] LABCLIA [id number] [place] [address] [facility] OF [place] FASTING TIME 12 hrs Normal [facility] Comment on above: Order Comment: Speci men Type: BLOOD SPECIMENOrdering Facility: [facility] Address: [address] [place] [place] [id number] Performed By: #### 2 4323-8, 3016-3, 29236-9 ####[facility] LABCL[facility] [id number] [place] [address] [facility] Triglyceride [Mass/Vol] 105 mg/dL Normal <150 [facility] Comment on above: Order Comment: Debi chrissy Type: BLOOD SPECIMENOrdering Facility: [facility] Address: [address] [place] [address] Result Comment: <150 mg/dL, Normal 150-199 mg/dL, Borderline high 200-499 mg/dL, High >499 mg/dL, Very high Performed By: #### 2 4323-8, 6-3, 79574-6 ####[facility] LABCLIA [id number] [place] [id number] [facility] TSH SerPl-aCncon 12-27-2024 TSH Qn 1.080 m[IU]/L Normal 0.270-4.200 [facility] Comment on above: Order Comment: Speci chrissy Type: BLOOD SPECIMENOrdering Facility: [facility] Address: [address] [place] [address] Result Comment: If t he patient is , TSH reference range varies by gestational period: First Trimester (weeks 9-12): 0.180-2.990 mIU/L Second Trimester: 0.110-3.980 mIU/L Third Trimester: 0.480-4.710 mIU/L Santino Gonzalez et al. A Practical Approach for the Verifications and Determination of Site- and Trimester-Specific Reference Intervals for Thyroid Function tests in . Thyroid, 2019:29:3:412-420. Maycol Reynolds, et al. 2017 Guidelines of the [place] Thyroid Association for the Diagnosis and Management of Thyroid Disease during and the . Thyroid, 2017:27:3:315-389. Performed By: #### 2 4323-8, 3016-3, 82818-0 ####[facility] LABCLIA [id number] [place] [address] [facility] CNOVon 12-13-2024 CNOV Office Visit (AGINTMLW) RENETTA KAUFMAN ([id number]) 2 F Date Time Provider Department 12/13/24 2:40 PM AAYUSH DEMPSEY During your visit today, we recorded the following information about you: Temperature Pulse Respiration Blood pressure 97.7 degrees 63/minute 16/minute 116/60 Weight Height 50.3 kg 1.581 m Aayush Dempsey, OCCUPATIONAL THERAPY ASST.MANUFACTURING OPERATIONS MANAGER 12/13/2024 9:14 PM Signed This note was created using Flow[employer]. Subjective Renetta Kaufman is a 24 year old female here today to establish care. She moved here from [place]. She reports being newly . She has appt with with VANESSA Boyce on 12/16/[address] Mars on 01/17/25. She reports doing a test a couple weeks ago. She reports seeing primary care once a year. She was seeing PCP Dr Cespedes. She reports last real period was 10/18/24. States she had 2 days of spotting 11/12/24. She did test on 11/25/24 and it was negative. She did repeat test on 12/04/24 which was positive. She is not currently working. 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 Anxiety and depression: states treated in the past. She has been on zoloft and prozac. She reports she does not feel she needs anything at this. Preventative: she does not drink alcohol or smoke tobacco. She does yoga 3-4x/wk. ALLERGIES No Known Allergies Current Outpatient Medications Medication Sig Dispense Refill no115/iron/folic acid ( 19 ORAL) Take by mouth. No current facility-administered medications for this visit. There is no problem list on file for this patient. PAST MEDICAL HISTORY Diagnosis Date Anxiety Depression History reviewed. No pertinent surgical history. Social History Tobacco Use Smoking status: Never Smokeless tobacco: Never Vaping Use Vaping status: Never Used Substance Use Topics Alcohol use: Never Drug use: Not Currently Family History Problem Relation Age of Onset other (gestational diabetes) Mother Diabetes Maternal Grandfather Heart Attack Maternal Grandfather Stroke Maternal Grandfather Systemic Lupus Erythematosus Paternal Grandmother . Review of Systems Constitutional: Negative for activity change, appetite change, chills, diaphoresis, fatigue, fever and unexpected weight change. HENT: Positive for sinus pressure and sneezing. Negative for congestion, drooling, ear pain, postnasal drip, rhinorrhea, sinus pain, sore throat and trouble swallowing. Eyes: Negative for photophobia and visual disturbance. Respiratory: Negative for cough, chest tightness, shortness of breath and wheezing. Cardiovascular: Negative for chest pain, palpitations and leg swelling. Gastrointestinal: Positive for nausea. Negative for abdominal pain, blood in stool, constipation, diarrhea and vomiting. She reports nausea x 2-3 days Endocrine: Negative for cold intolerance, heat intolerance, polydipsia, polyphagia and polyuria. States feel more cold recently Genitourinary: Negative for decreased urine volume, difficulty urinating, dysuria, frequency, hematuria, pelvic pain, urgency, vaginal bleeding, vaginal discharge and vaginal pain. Musculoskeletal: Negative for arthralgias, back pain, myalgias and neck pain. Skin: Negative for color change and rash. Allergic/Immunologic: Negative for environmental allergies and food allergies. Neurological: Negative for dizziness, seizures, weakness, numbness and headaches. Hematological: Negative. Negative for adenopathy. Does not bruise/bleed easily. Psychiatric/Behaviora l: Negative for dysphoric mood, sleep disturbance and suicidal ideas. The patient is not nervous/anxious. Objective BP 116/60 Pulse 63 Temp 36.5 ?C (97.7 ?F) Resp 16 Ht 158.1 cm (5' 2.25) Wt 50.3 kg (111 lb) SpO2 99% BMI 20.14 kg/m? Physical Exam Vitals and nursing note reviewed. Constitutional: General: She is not in acute distress. Appearance: Normal appearance. She is not ill-appearing or diaphoretic. HENT: Head: Normocephalic and atraumatic. Right Ear: External ear normal. Left Ear: External ear normal. Nose: Nose normal. No congestion or rhinorrhea. Mouth/Throat: Pharynx: No oropharyngeal exudate. Eyes: General: Lids are normal. No scleral icterus. Right eye: No discharge. Left eye: No discharge. Conjunctiva/sclera: Conjunctivae normal. Pupils: Pupils are equal, round, and reactive to light. Neck: Vascular: Normal carotid pulses. No carotid bruit. Cardiovascular: Rate and Rhythm: Normal rate and regular rhythm. Pulses: Normal pulses. Heart sounds: Normal heart sounds, S1 normal and S2 normal. No murmur heard. No friction rub. No gallop. Pulmonary: Effort: Pulmonary effort is normal. No accessory muscle usage or respiratory distress. Breath sounds: Normal breath sounds. No decreased breath sounds, wheezing, rhonchi or rales. Chest: Chest wall: (more content not included)... Normal [facility] Vital Signs Date Time Vital Sign Value Performing Clinician Gerardo valdez 06-15-2025 14:22-0400 Body mass index (BMI) [Ratio] 23.78 kg/m2 Melody Sauer APRN.CNM Work Phone: [facility] 06-15-2025 14:22-0400 Body weight 58.97 kg Melody Sauer APRN.CNM Work Phone: [facility] 06-15-2025 14:22-0400 Diastolic blood pressure 62 mm[Hg] Melody Sauer APRN.CNM Work Phone: [facility] 06-15-2025 14:22-0400 Systolic blood pressure 100 mm[Hg] Melody Sauer APRN.CNM Work Phone: [facility] 06-01-2025 14:30-0400 Body mass index (BMI) [Ratio] 23.45 kg/m2 Shawna Wilson OCCUPATIONAL THERAPY ASST.CNM Work Phone: [facility] 06-01-2025 14:30-0400 Body weight 58.15 kg Shawna Wilson OCCUPATIONAL THERAPY ASST.CNM Work Phone: [facility] 06-01-2025 14:30-0400 Diastolic blood pressure 60 mm[Hg] Shawna Wilson OCCUPATIONAL THERAPY ASST.CNM Work Phone: [facility] 06-01-2025 14:30-0400 Systolic blood pressure 100 mm[Hg] Shawna Wilson OCCUPATIONAL THERAPY ASST.CNM Work Phone: [facility] 05-23-2025 10:32-0400 Body height 157.5 cm Mandy Bisler-Joo OCCUPATIONAL THERAPY ASST.MANUFACTURING OPERATIONS MANAGER Work Phone: [facility] 05-23-2025 10:32-0400 Body mass index (BMI) [Ratio] 22.86 kg/m2 Mandy Bisler-Joo OCCUPATIONAL THERAPY ASST.MANUFACTURING OPERATIONS MANAGER Work Phone: [facility] 05-23-2025 10:32-0400 Body weight 56.7 kg Mandy Bisler-Joo OCCUPATIONAL THERAPY ASST.MANUFACTURING OPERATIONS MANAGER Work Phone: [facility] 05-18-2025 14:11-0400 Body mass index (BMI) [Ratio] 22.75 kg/m2 Melody Sauer OCCUPATIONAL THERAPY ASST.CNM Work Phone: [facility] 05-18-2025 14:11-0400 Body weight 58.24 kg Melody Sauer OCCUPATIONAL THERAPY ASST.CNM Work Phone: [facility] 05-18-2025 14:11-0400 Diastolic blood pressure 60 mm[Hg] Melody Sauer OCCUPATIONAL THERAPY ASST.CNM Work Phone: [facility] 05-18-2025 14:11-0400 Systolic blood pressure 90 mm[Hg] Melody Sauer OCCUPATIONAL THERAPY ASST.CNM Work Phone: [facility] 05-09-2025 15:22-0400 Body height 160 cm Mandy Bisler-Joo OCCUPATIONAL THERAPY ASST.MANUFACTURING OPERATIONS MANAGER Work Phone: [facility] 05-09-2025 15:22-0400 Body mass index (BMI) [Ratio] 21.97 kg/m2 Mandy Bisler-Joo OCCUPATIONAL THERAPY ASST.MANUFACTURING OPERATIONS MANAGER Work Phone: [facility] 05-09-2025 15:22-0400 Body temperature 96.91 [degF] Mandy Bisler-Joo OCCUPATIONAL THERAPY ASST.MANUFACTURING OPERATIONS MANAGER Work Phone: [facility] 05-09-2025 15:22-0400 Body weight 56.25 kg Mandy Bisler-Joo OCCUPATIONAL THERAPY ASST.MANUFACTURING OPERATIONS MANAGER Work Phone: [facility] 05-09-2025 15:22-0400 Diastolic blood pressure 58 mm[Hg] Mandy Bisler-Joo OCCUPATIONAL THERAPY ASST.MANUFACTURING OPERATIONS MANAGER Work Phone: [facility] 05-09-2025 15:22-0400 Heart rate 65 /min Mandy Bisler-Joo OCCUPATIONAL THERAPY ASST.MANUFACTURING OPERATIONS MANAGER Work Phone: [facility] 05-09-2025 15:22-0400 SaO2% (BldA) [Mass fraction] 97 % Mandy Bisler-Joo OCCUPATIONAL THERAPY ASST.MANUFACTURING OPERATIONS MANAGER Work Phone: [facility] 05-09-2025 15:22-0400 Systolic blood pressure 94 mm[Hg] Mandy Bisler-Joo OCCUPATIONAL THERAPY ASST.MANUFACTURING OPERATIONS MANAGER Work Phone: [facility] 05-05-2025 10:31-0400 Body mass index (BMI) [Ratio] 22.01 kg/m2 Shawna Plotts OCCUPATIONAL THERAPY ASST.CNM Work Phone: [facility] 05-05-2025 10:31-0400 Body weight 56.7 kg Shawna Plotts OCCUPATIONAL THERAPY ASST.CNM Work Phone: [facility] 05-05-2025 10:31-0400 Diastolic blood pressure 52 mm[Hg] Shawna Plotts OCCUPATIONAL THERAPY ASST.CNM Work Phone: [facility] 05-05-2025 10:31-0400 Systolic blood pressure 94 mm[Hg] Shawna Plotts OCCUPATIONAL THERAPY ASST.CNM Work Phone: [facility] 05-04-2025 10:20-0400 Body mass index (BMI) [Ratio] 21.66 kg/m2 Bouchra Carrasco MD Work Phone: [facility] 05-04-2025 10:20-0400 Body weight 55.79 kg Bouchra Carrasco MD Work Phone: [facility] 05-04-2025 10:20-0400 Diastolic blood pressure 58 mm[Hg] Bouchra Carrasco MD Work Phone: [facility] 05-04-2025 10:20-0400 Systolic blood pressure 98 mm[Hg] Bouchra Carrasco MD Work Phone: [facility] 04-15-2025 10:52-0400 Body mass index (BMI) [Ratio] 21.13 kg/m2 Zina Barillas APRN.MANUFACTURING OPERATIONS MANAGER Work Phone: [facility] 04-15-2025 10:52-0400 Body weight 54.43 kg Zina Barillas OCCUPATIONAL THERAPY ASST.MANUFACTURING OPERATIONS MANAGER Work Phone: [facility] 04-15-2025 10:52-0400 Diastolic blood pressure 66 mm[Hg] Zina Barillas OCCUPATIONAL THERAPY ASST.MANUFACTURING OPERATIONS MANAGER Work Phone: [facility] 04-15-2025 10:52-0400 Systolic blood pressure 98 mm[Hg] Zina Barillas OCCUPATIONAL THERAPY ASST.MANUFACTURING OPERATIONS MANAGER Work Phone: [facility] 03-28-2025 16:08-0400 Body mass index (BMI) [Ratio] 20.25 kg/m2 Shawna Wilson OCCUPATIONAL THERAPY ASST.CNM Work Phone: [facility] 03-28-2025 16:08-0400 Body weight 52.16 kg Shawna Wilson OCCUPATIONAL THERAPY ASST.CNM Work Phone: [facility] 03-28-2025 16:08-0400 Diastolic blood pressure 64 mm[Hg] Shawna Wilson OCCUPATIONAL THERAPY ASST.CNM Work Phone: [facility] 03-28-2025 16:08-0400 Systolic blood pressure 100 mm[Hg] Shawna Wilson OCCUPATIONAL THERAPY ASST.CNM Work Phone: [facility] 03-09-2025 14:25-0400 Body mass index (BMI) [Ratio] 19.9 kg/m2 Melody Sauer APRN.CNM Work Phone: [facility] 03-09-2025 14:25-0400 Body weight 51.26 kg Melody Sauer OCCUPATIONAL THERAPY ASST.CNM Work Phone: [facility] 03-09-2025 14:25-0400 Diastolic blood pressure 60 mm[Hg] Melody Sauer OCCUPATIONAL THERAPY ASST.CNM Work Phone: [facility] 03-09-2025 14:25-0400 Systolic blood pressure 94 mm[Hg] Melody Sauer OCCUPATIONAL THERAPY ASST.CNM Work Phone: [facility] 02-09-2025 14:22-0400 Body mass index (BMI) [Ratio] 19.55 kg/m2 Shawna Plotts OCCUPATIONAL THERAPY ASST.CNM Work Phone: [facility] 02-09-2025 14:22-0400 Body weight 50.35 kg Shawna Plotts OCCUPATIONAL THERAPY ASST.CNM Work Phone: [facility] 02-09-2025 14:22-0400 Diastolic blood pressure 66 mm[Hg] Shawna Plotts OCCUPATIONAL THERAPY ASST.CNM Work Phone: [facility] 02-09-2025 14:22-0400 Systolic blood pressure 108 mm[Hg] Shawna Plotts OCCUPATIONAL THERAPY ASST.CNM Work Phone: [facility] 01-06-2025 15:56-0400 Body mass index (BMI) [Ratio] 20.07 kg/m2 Augustin Haury OCCUPATIONAL THERAPY ASST.MANUFACTURING OPERATIONS MANAGER Work Phone: [facility] 01-06-2025 15:56-0400 Body weight 51.71 kg Augustin Haury OCCUPATIONAL THERAPY ASST.MANUFACTURING OPERATIONS MANAGER Work Phone: [facility] 01-06-2025 15:56-0400 Diastolic blood pressure 60 mm[Hg] Augustin Haury OCCUPATIONAL THERAPY ASST.MANUFACTURING OPERATIONS MANAGER Work Phone: [facility] 01-06-2025 15:56-0400 Systolic blood pressure 100 mm[Hg] Augustin Haury OCCUPATIONAL THERAPY ASST.MANUFACTURING OPERATIONS MANAGER Work Phone: [facility] 12-30-2024 14:01-0400 Body height 160.5 cm Augustin Haury OCCUPATIONAL THERAPY ASST.MANUFACTURING OPERATIONS MANAGER Work Phone: [facility] 12-30-2024 14:01-0400 Body mass index (BMI) [Ratio] 20.07 kg/m2 Augustin Haury OCCUPATIONAL THERAPY ASST.MANUFACTURING OPERATIONS MANAGER Work Phone: [facility] 12-30-2024 14:01-0400 Body weight 51.71 kg Augustin Altamiranokoffi OCCUPATIONAL THERAPY ASST.MANUFACTURING OPERATIONS MANAGER Work Phone: [facility] 12-30-2024 14:01-0400 Diastolic blood pressure 60 mm[Hg] Augustin Altamiranoury OCCUPATIONAL THERAPY ASST.MANUFACTURING OPERATIONS MANAGER Work Phone: [facility] 12-30-2024 14:01-0400 Systolic blood pressure 100 mm[Hg] Augustin Altamiranoury OCCUPATIONAL THERAPY ASST.MANUFACTURING OPERATIONS MANAGER Work Phone: [facility] 12-13-2024 14:45-0400 Body height 158.1 cm Aayush Dempsey OCCUPATIONAL THERAPY ASST.MANUFACTURING OPERATIONS MANAGER Work Phone: [facility] 12-13-2024 14:45-0400 Body mass index (BMI) [Ratio] 20.14 kg/m2 Aayush Dempsey OCCUPATIONAL THERAPY ASST.MANUFACTURING OPERATIONS MANAGER Work Phone: [facility] 12-13-2024 14:45-0400 Body temperature 97.7 [degF] Aayush Liel OCCUPATIONAL THERAPY ASST.MANUFACTURING OPERATIONS MANAGER Work Phone: [facility] 12-13-2024 14:45-0400 Body weight 50.35 kg Aayush Dempsey OCCUPATIONAL THERAPY ASST.MANUFACTURING OPERATIONS MANAGER Work Phone: [facility] 12-13-2024 14:45-0400 Diastolic blood pressure 60 mm[Hg] Aayush Roselyn OCCUPATIONAL THERAPY ASST.MANUFACTURING OPERATIONS MANAGER Work Phone: [facility] 12-13-2024 14:45-0400 Heart rate 63 /min Aayush Roselyn OCCUPATIONAL THERAPY ASST.MANUFACTURING OPERATIONS MANAGER Work Phone: [facility] 12-13-2024 14:45-0400 Respiratory rate 16 /min Aayush Roselyn OCCUPATIONAL THERAPY ASST.MANUFACTURING OPERATIONS MANAGER Work Phone: [facility] 12-13-2024 14:45-0400 SaO2% (BldA) [Mass fraction] 99 % Aayush Dempsey OCCUPATIONAL THERAPY ASST.MANUFACTURING OPERATIONS MANAGER Work Phone: [facility] 12-13-2024 14:45-0400 Systolic blood pressure 116 mm[Hg] Aayush Dempsey APRN.MANUFACTURING OPERATIONS MANAGER Work Phone: [facility] Encounters Encounter Date Encounter Type Care Provider Facility Start: 06-29-2025 End: 06-29-2025 ambulatory SHAWNA WILSON Facility:[facility] Start: 06-27-2025 End: 06-27-2025 ambulatory DANNIELLE ALMARAZ Facility:[facility] Start: 06-23-2025 ambulatory AAYUSH DEMPSEY [facility] ty:[facility] Start: 06-15-2025 End: 06-15-2025 Patient encounter procedure Melody Sauer APRN.CNM Work Phone: OB/Gynecology Comment on above: Encounter for superv ision of normal first in third trimester (HCC) (Primary Dx); 32 weeks gestation of ([facility]); Depression with anxiety; Heartburn during in third trimester ([facility]); Constipation during in third trimester ([facility]) Start: 06-15-2025 End: 06-15-2025 ambulatory MELODY SAUER Facility:[facility] Start: 06-08-2025 End: 06-08-2025 ambulatory Irena Fv Ob L&D Work Phone: [facility] Comment on above: [facility] Time to [place] Start: 06-08-2025 End: 06-08-2025 E-mail encounter from caregiver Irena Fv Ob L&D Work Phone: [facility] Start: 06-08-2025 End: 06-10-2025 Telephone encounter Melody Sauer APRN.CNM Work Phone: OB/Gynecology Comment on above: Breast Pump Start: 06-01-2025 End: 06-01-2025 Patient encounter procedure Shawna Wilson APRN.CNM Work Phone: OB/Gynecology Comment on above: 30 weeks gestation o f (HCC) (Primary Dx); Encounter for supervision of normal first in third trimester (HCC); Depression with anxiety; Frequent urination; Heartburn during in third trimester ([facility]) Start: 06-01-2025 End: 06-01-2025 ambulatory SHAWNA WILSON Facility:[facility] Start: 06-01-2025 End: 06-01-2025 Telephone encounter Shawna Wilson OCCUPATIONAL THERAPY ASST.CNM Work Phone: OB/Gynecology Comment on above: Patient Update; Appo intment Start: 05-23-2025 End: 05-23-2025 Patient encounter procedure Mandy Caldwell OCCUPATIONAL THERAPY ASST.MANUFACTURING OPERATIONS MANAGER Work Phone: Colorectal Surgery Comment on above: Hemorrhoid thrombosi s (Primary Dx); Constipation during in first trimester (HCC) Start: 05-23-2025 End: 05-23-2025 ambulatory AAYUSH Le ROSELYN Facility:[facility] Start: 05-18-2025 End: 05-18-2025 Patient encounter procedure Melody Sauer KIP.CNM Work Phone: OB/Gynecology Comment on above: Encounter for superv ision of normal first in third trimester ([facility]) (Primary Dx); Vaginal itching; 28 weeks gestation of ([facility]); Depression with anxiety Start: 05-18-2025 End: 05-18-2025 ambulatory AAYUSH DEMPSEY Facility:[facility] Start: 05-17-2025 End: 05-17-2025 ambulatory Crescencio Ziegler PT Work Phone: [facility] Comment on above: Constipation during in first trimester (HCC) (Primary Dx); Irritable bowel syndrome with constipation; Muscle spasm Start: 05-09-2025 End: 05-09-2025 Patient encounter procedure Mandy Caldwell OCCUPATIONAL THERAPY ASST.MANUFACTURING OPERATIONS MANAGER Work Phone: Colorectal Surgery Comment on above: Hemorrhoid thrombosi s (Primary Dx); Constipation during in first trimester (HCC); Irritable bowel syndrome with constipation Start: 05-09-2025 End: 05-09-2025 ambulatory AAYUSH DEMPSEY Facility:[facility] Start: 05-06-2025 End: 05-06-2025 ambulatory Crescencio Ziegler PT Work Phone: [facility] Comment on above: Constipation during in first trimester (HCC) (Primary Dx); Irritable bowel syndrome with constipation; Muscle spasm Start: 05-05-2025 End: 05-05-2025 Patient encounter procedure Shawna Wilson APRN.CNM Work Phone: OB/Gynecology Comment on above: Encounter for superv ision of normal first in second trimester (HCC) (Primary Dx); External hemorrhoids without complication; Anal or rectal pain; 26 weeks gestation of ([facility]); Screening for diabetes mellitus Start: 05-05-2025 End: 05-05-2025 ambulatory AAYUSH DEMPSEY Facility:[facility] Start: 05-04-2025 End: 05-04-2025 Patient encounter procedure Bouchra Carrasco MD Work Phone: OB/Gynecology Comment on above: Anal or rectal pain (Primary Dx); External hemorrhoids without complication Start: 05-04-2025 End: 05-04-2025 ambulatory AAYUSH DEMPSEY Facility:[facility] Start: 05-03-2025 End: 05-03-2025 ambulatory Shawna Wilson APRN.GOGO Work Phone: OB/Gynecology Start: 05-03-2025 End: 05-03-2025 Follow-up encounter Shawna Wilson APRN.CNM Work Phone: OB/Gynecology Comment on above: Follow-up on Hemorrh oid Treatment Start: 05-02-2025 End: 05-02-2025 Telephone encounter Aayush Dempsey APRN.CNP Work Phone: [facility] Start: 04-15-2025 End: 04-15-2025 Patient encounter procedure Zina Barillas APRN.CNP Work Phone: OB/Gynecology Comment on above: External hemorrhoids without complication (Primary Dx); Irritable bowel syndrome with constipation; 23 weeks gestation of (HCC) Start: 04-15-2025 End: 04-15-2025 ambulatory ZINA BARILLAS Facility:[facility] Start: 04-13-2025 End: 04-13-2025 ambulatory Dannielle Almaraz PT Work Phone: [facility] Comment on above: Constipation during in first trimester (HCC) (Primary Dx); Irritable bowel syndrome with constipation; Muscle spasm Start: 04-05-2025 End: 04-05-2025 Patient encounter procedure Melody Sauer APRN.CNM Work Phone: OB/Gynecology Comment on above: Encounter for superv ision of normal first in second trimester (HCC) (Primary Dx); 22 weeks gestation of ([facility]); Hemorrhoids, unspecified hemorrhoid type; with uncertain dates in first trimester ([facility]); Depression with anxiety; Screening for diabetes mellitus Start: 04-05-2025 End: 04-05-2025 ambulatory MELODY SAUER Facility:[facility] Start: 04-04-2025 End: 04-04-2025 Telephone encounter José Miguel Perry APRN.CNP Work Phone: Psychiatry Start: 03-29-2025 End: 05-29-2025 Follow-up encounter Bouchra Carrasco MD Work Phone: OB/Gynecology Start: 03-28-2025 End: 03-28-2025 Patient encounter procedure Shawna Wilson APRN.CNM Work Phone: OB/Gynecology Comment on above: 20 weeks gestation o f ([facility]) (Primary Dx); Encounter for supervision of normal first in second trimester ([facility]); Depression with anxiety Encounter for superv ision of normal first in second trimester ([facility]) (Primary Dx); 14 weeks gestation of ([facility]); Encounter for supervision of high risk in second trimester, antepartum ([facility]) Start: 03-28-2025 End: 03-28-2025 ambulatory SHAWNA WILSON Facility:[facility] Start: 03-25-2025 End: 03-25-2025 ambulatory Melody Sauer APRN.CNM Work Phone: OB/Gynecology Comment on above: Centering 04/05/25 Start: 03-25-2025 End: 03-25-2025 E-mail encounter from caregiver Melody Sauer APRN.CNM Work Phone: OB/Gynecology Start: 03-23-2025 End: 03-23-2025 ambulatory Dannielle Almaraz PT Work Phone: [facility] Comment on above: Constipation during in first trimester (HCC) (Primary Dx); Irritable bowel syndrome with constipation; Muscle spasm Start: 03-09-2025 End: 03-09-2025 Patient encounter procedure Melody Sauer APRN.CNM Work Phone: OB/Gynecology Comment on above: Encounter for superv ision of normal first in second trimester (HCC) (Primary Dx); 18 weeks gestation of ([facility]); Constipation during in first trimester ([facility]); Nausea and vomiting during ([facility]); Depression with anxiety; with uncertain dates in first trimester ([facility]) Start: 03-09-2025 End: 03-09-2025 ambulatory MELODY SAUER Facility:[facility] Start: 03-09-2025 End: 03-09-2025 ambulatory Dannielle Almaraz PT Work Phone: [facility] Comment on above: Muscle spasm (Primar y Dx); Constipation during in first trimester (HCC); Irritable bowel syndrome with constipation Start: 02-24-2025 End: 02-24-2025 ambulatory AAYUSH DEMPSEY Facility:[facility] Start: 02-14-2025 End: 04-16-2025 Follow-up encounter Shawna Wilson APRN.CNM Work Phone: OB/Gynecology Comment on above: Appointment Start: 02-09-2025 End: 02-09-2025 ambulatory SHAWNA WILSON Facility:[facility] Start: 02-09-2025 End: 02-09-2025 Patient encounter procedure Shawna Wilson APRN.CNM Work Phone: OB/Gynecology Comment on above: 14 weeks gestation o f ([facility]) (Primary Dx); Encounter for supervision of high risk in second trimester, antepartum ([facility]); Depression with anxiety Start: 02-09-2025 End: 02-09-2025 ambulatory SHAWNA WILSON Facility:[facility] Start: 01-27-2025 End: 01-27-2025 ambulatory AUGUSTIN BOYCE Facility:[facility] Start: 01-27-2025 End: 01-27-2025 ambulatory AUGUSTIN BOYCE Facility:[facility] Start: 01-07-2025 End: 03-09-2025 Follow-up encounter Augustin Boyce APRN.MANUFACTURING OPERATIONS MANAGER Work Phone: OB/Gynecology Start: 01-06-2025 End: 01-06-2025 Patient encounter procedure Augustin Altamiranokoffi SHIN.MANUFACTURING OPERATIONS MANAGER Work Phone: OB/Gynecology Comment on above: Encounter for superv ision of high risk in first trimester, antepartum (HCC) (Primary Dx); 9 weeks gestation of (HCC); Depression with anxiety; Vaginal discharge during in first trimester (HCC); Urinary frequency Start: 01-06-2025 End: 01-06-2025 ambulatory AUGUSTIN BENKOFFI Facility:[facility] Start: 01-03-2025 End: 03-05-2025 Follow-up encounter Karenmagdy RoeGinakatarzyna SHIN.MANUFACTURING OPERATIONS MANAGER Work Phone: OB/Gynecology Start: 12-30-2024 End: 12-30-2024 ambulatory AUGUSTIN BOYCE Facility:[facility] Start: 12-30-2024 End: 12-30-2024 Patient encounter procedure Augustin Altamiranokoffi SHIN.MANUFACTURING OPERATIONS MANAGER Work Phone: OB/Gynecology Comment on above: Encounter for superv ision of high risk in first trimester, antepartum (Primary Dx); 7 weeks gestation of ; with uncertain dates in first trimester; Depression with anxiety; Hx of migraines; Nausea and vomiting during ; Constipation during in first trimester Start: 12-27-2024 End: 12-29-2024 Follow-up encounter Aayush Dempsey APRN.MANUFACTURING OPERATIONS MANAGER Work Phone: [facility] Comment on above: Results Start: 12-27-2024 End: 12-27-2024 ambulatory AAYUSH DEMPSEY Facility:[facility] Start: 12-24-2024 End: 12-24-2024 Telemedicine consultation with patient Perez French KIP.MANUFACTURING OPERATIONS MANAGER Work Phone: Telemedicine Comment on above: Treatment not availa ble (Primary Dx) Start: 12-24-2024 End: 12-24-2024 ambulatory AAYUSH DEMPSEY Facility:[facility] Start: 12-14-2024 End: 12-15-2024 ambulatory Aayush M Roselyn OCCUPATIONAL THERAPY ASST.MANUFACTURING OPERATIONS MANAGER Work Phone: [facility] Comment on above: Records Start: 12-14-2024 End: 12-15-2024 Patient encounter procedure Aayush Dempsey OCCUPATIONAL THERAPY ASST.MANUFACTURING OPERATIONS MANAGER Work Phone: [facility] Comment on above: Advice on OBGYN appo intment Start: 12-13-2024 End: 12-13-2024 Patient encounter procedure Aayush Dempsey OCCUPATIONAL THERAPY ASST.MANUFACTURING OPERATIONS MANAGER Work Phone: [facility] Comment on above: Encounter for medica l examination to establish care (Primary Dx); Screening for STD (sexually transmitted disease); Screening for HIV (human immunodeficiency virus); Special screening examination for viral disease; Screening for deficiency anemia; Encounter for screening for diabetes mellitus; Screening for thyroid disorder; Screening for lipid disorders Start: 12-13-2024 End: 12-13-2024 Patient encounter status Aayush Dempsey OCCUPATIONAL THERAPY ASST.MANUFACTURING OPERATIONS MANAGER Work Phone: [facility] Work Phone: Start: 12-13-2024 End: 12-13-2024 ambulatory AAYUSH M ROSELYN Facility:[facility] Start: 12-13-2024 Encounter for genera l adult medical examination without abnormal findings AAYUSHANA DEMPSEY [facility] Procedures Date Procedure Procedure Detail Performing Clinician Start: 06-01-2025 Urnls dip stick/tabl et rgnt auto w/o microscopy [facility] Provider Start: 03-28-2025 Us preg uterus after 1st trimest 10/06 gestation Shawna Wilson OCCUPATIONAL THERAPY ASST.CNM Work Phone: Start: 01-27-2025 Antibody screen [facility] Comment on above: Order Comment: Speci men Type: BLOOD SPECIMENOrdering Facility: [facility] Address: [address] [place] [address] Performed By: #### T SPN ####CC MAIN BLOOD BANKCLIA [id number] [place] [id number] [address] [place] Start: 01-06-2025 Urnls dip stick/tabl et rgnt auto w/o microscopy Augustin Boyce APRN.MANUFACTURING OPERATIONS MANAGER Work Phone: Plan of Treatment Date Care Activity Detail Author Start: 05-18-2035 Urine microalbumin profile DTaP,Tdap,Td Vaccine (8 - Td or Tdap) [facility] Start: 12-31-2027 Screening for malign ant neoplasm of cervix Cervical Cancer Screening [facility] Start: 12-30-2025 GC (Gonorrhea) Screening () GC (Gonorrhea) Screening () [facility] Start: 12-30-2025 Screening for Chlamy guerita trachomatis Chlamydia Screening () [facility] Start: 07-11-2025 End: 07-11-2025 ambulatory 07/11/2025 8:15 AM EDT OT/PT/Speech Visit [facility] [address] [place] [address] [place] [address] [place], [place] [id number] IBS history and current [facility] Comment on above: IBS history and curr ent Start: 06-29-2025 End: 06-29-2025 Patient encounter procedure 06/29/2025 2:30 PM EDT Office Visit OB/Gynecology [address] [place] [address] Shawna Wilson APRN.[facility] [address] [place] [address] [facility] OB/Gynecology Comment on above: Centering Start: 06-27-2025 End: 06-27-2025 ambulatory 06/27/2025 9:45 AM EDT OT/PT/Speech Visit [facility] [address] [place] [address] [place] [address] [place], [place] [id number] IBS history and current [facility] Comment on above: IBS history and curr ent Start: 06-23-2025 End: 06-23-2025 Patient encounter procedure 06/23/2025 9:00 AM EDT Appointment OB/Gynecology [address] [place] [address] L&D, [facility] [address] [place] [address] [facility] phone consult OB/Gynecology Comment on above: [facility] phone consul t Start: 06-20-2025 RSV Vaccine (1 - Ris k 1-dose series) RSV Vaccine (1 - Risk 1-dose series) [facility] Start: 06-15-2025 End: 06-15-2025 Patient encounter procedure 06/15/2025 2:30 PM EDT Office Visit OB/Gynecology [address] [place], [place] [id number] Melody Sauer APRN.CNM [address] [place], [place] [id number] [facility] OB/Gynecology Comment on above: Centering Start: 06-15-2025 End: 06-15-2025 ambulatory 06/15/2025 11:00 AM EDT OT/PT/Speech Visit [facility] [address] [place] [address] [place] [address] [address] [place], [place] [id number] IBS history and current [facility] Comment on above: IBS history and curr ent Start: 06-14-2025 RSV Vaccine (1 - Ris k 1-dose series) RSV Vaccine (1 - Risk 1-dose series) [facility] Start: 06-06-2025 Influenza vaccination C [facility] Start: 06-01-2025 End: 06-01-2025 Patient encounter procedure 06/01/2025 2:30 PM EDT Office Visit OB/Gynecology [address] [place] [address] Shawna Wilson APRN.CNM [address] [place] [address] [facility] OB/Gynecology Comment on above: [facility]ering Start: 05-31-2025 End: 05-31-2025 ambulatory 05/31/2025 9:30 AM EDT OT/PT/Speech Visit [facility] [address] [place] [address] Crescencio Molina, PT [address] [place] [address] IBS history and current [facility] Comment on above: IBS history and curr ent Start: 05-23-2025 End: 05-23-2025 Patient encounter procedure 05/23/2025 10:30 AM EDT Office Visit Colorectal Surgery [address] [address] Mandy Caldwell APRN.MANUFACTURING OPERATIONS MANAGER [address] [place] [address] 2 week f/u Colorectal Surgery Comment on above: 2 week f/u Start: 05-18-2025 End: 05-18-2025 Patient encounter procedure 05/18/2025 2:30 PM EDT Office Visit OB/Gynecology [address] [place] [address] Melody Sauer APRN.CNM [address] [place] [place] [address] [facility] OB/Gynecology Comment on above: Centering Start: 05-18-2025 End: 05-18-2025 ambulatory 05/18/2025 2:15 PM EDT Results Only John Rodaswn [facility] [address] [place] [address] [place] [facility] Start: 05-17-2025 End: 08-16-2025 ANEMIA REFLEX PANEL ANEMIA REFLEX PANEL Lab Routine 22 weeks gestation of (HCC) Encounter for supervision of normal first in second trimester (HCC) Expected: 05/17/2025, Expires: 08/16/2025 [facility] Comment on above: Expected: 05/17/2025 , Expires: 08/16/2025 Start: 05-17-2025 End: 04-05-2026 GESTATIONAL GLUCOSE SCREEN, 1-HOUR, 50 GRAM, NON-FASTING GESTATIONAL GLUCOSE SCREEN, 1-HOUR, 50 GRAM, NON-FASTING Lab Routine Screening for diabetes mellitus Expected: 05/17/2025, Expires: 04/05/2026 [facility] Work Phone: Comment on above: Expected: 05/17/2025 , Expires: 04/05/2026 Start: 05-17-2025 End: 04-05-2026 SYPHILIS TREPONEMAL W/REFLEX SYPHILIS TREPONEMAL W/REFLEX Lab Routine 22 weeks gestation of ([facility]) Encounter for supervision of normal first in second trimester ([facility]) Expected: 05/17/2025, Expires: 04/05/2026 [facility] Comment on above: Expected: 05/17/2025 , Expires: 04/05/2026 Start: 05-17-2025 End: 05-17-2025 ambulatory 05/17/2025 11:00 AM EDT OT/PT/Speech Visit [facility] [address] [place] [address] Crescencio Molina, PT [address] [place] [address] IBS history and current [facility] Comment on above: IBS history and curr ent Start: 05-12-2025 End: 05-12-2025 Nursing evaluation of patient and report 05/12/2025 10:20 AM EDT Nurse Visit [facility] [address] [place] [address] vaccine [facility] Comment on above: vaccine Start: 05-11-2025 End: 05-11-2025 Patient encounter procedure 05/11/2025 2:30 PM EDT Office Visit OB/Gynecology [address] [place], [place] [id number] Shawna Wilson APRN.CNM [address] [place] [address] [facility] OB/Gynecology Comment on above: [facility]ering Start: 05-06-2025 End: 05-06-2025 ambulatory 05/06/2025 11:15 AM EDT OT/PT/Speech Visit [facility] [address] [place] [address] Crescencio Molina, PT [address] [place] [address] IBS history and current [facility] Comment on above: IBS history and curr ent Start: 05-05-2025 End: 05-05-2025 Patient encounter procedure 05/05/2025 10:30 AM EDT Routine Office Visit OB/Gynecology [address] [place] [address] Shawna Wilson APRN.CN [address] [place] [address] OB/ reschedule from 04/27 OB/Gynecology Comment on above: OB/ reschedule from 04/27 Start: 05-05-2025 End: 05-05-2025 ambulatory 05/05/2025 10:15 AM EDT Results Only John Rodaswn [facility] [address] [place] [address] Glucose Test [facility] Comment on above: Glucose Test Start: 05-04-2025 End: 05-04-2025 Patient encounter procedure 05/04/2025 10:10 AM EDT Routine Office Visit OB/Gynecology [address] [place] [address] Wiley Corbin MD [address] [place] [address] OB - hemorrhoid. See Mychart OB/Gynecology Comment on above: OB - hemorrhoid. See Mychart Start: 04-27-2025 End: 04-27-2025 Patient encounter procedure 04/27/2025 2:30 PM EDT Office Visit OB/Gynecology [address] [place] [address] Shawna Wilson APRN.CNM [address] [place] [address] [facility] OB/Gynecology Comment on above: Centering Start: 04-15-2025 End: 04-15-2025 Patient encounter procedure 04/15/2025 11:00 AM EDT Office Visit OB/Gynecology [address] [place] [address] Zina Barillas APRN.MANUFACTURING OPERATIONS MANAGER [address] [place] [address] Hemmeroid treatment/ follow up OB/Gynecology Comment on above: Hemmeroid treatment/ follow up Start: 04-13-2025 End: 04-13-2025 ambulatory 04/13/2025 11:00 AM EDT OT/PT/Speech Visit [facility] [address] [place] [address] [place] [address] [place], [place] [phone] IBS history and current [facility] Comment on above: IBS history and curr ent Start: 04-06-2025 End: 04-06-2025 Patient encounter procedure 04/06/2025 2:30 PM EDT Office Visit OB/Gynecology [address] [place] [address] Melody Sauer APRN.CNM [address] [place] [address] [facility]cology Comment on above: Centering Start: 04-05-2025 End: 04-05-2025 Patient encounter procedure 04/05/2025 2:30 PM EDT Office Visit OB/Gynecology [address] [place] [address] Melody Sauer APRN.CNM [address] [place] [id number] [facility]cology Comment on above: Centering Start: 04-04-2025 Influenza vaccination Influenza Vacc ine (#1) [facility] Comment on above: Postponed from 06/06 (Declined at this time) Start: 03-28-2025 End: 03-28-2025 Patient encounter procedure [facility] Comment on above: Anatomy 14 weeks gestation o f ; Start: 03-23-2025 End: 03-23-2025 ambulatory 03/23/2025 2:00 PM EDT OT/PT/Speech Visit [facility] [address] [place] [address] [place] [address] [place] [address] IBS history and current [facility] Comment on above: IBS history and curr ent Start: 03-09-2025 End: 03-09-2025 Patient encounter procedure 03/09/2025 2:30 PM EDT Office Visit OB/Gynecology [address] [place] [address] Melody Sauer APRN.CNM [address] [place] [address] [facility]Gynecology Comment on above: Centering Start: 03-09-2025 End: 03-09-2025 ambulatory 03/09/2025 10:30 AM EDT OT/PT/Speech Visit [facility] [address] [place] [address] [place] [address] [place] [address] IBS history and current [facility] Comment on above: IBS history and curr ent Start: 02-24-2025 End: 02-24-2025 Patient encounter procedure 02/24/2025 1:30 PM EDT Routine Office Visit OB/Gynecology [address] [place] [address] Oriana Camacho MD [address] [place] [address] OB OB/Gynecology Comment on above: OB Start: 02-09-2025 End: 05-11-2025 Chromosome 21 trisomy [Presence] in Blood or Tissue by Cytogenetics [facility] Work Phone: Comment on above: Expected: 02/09/2025 , Expires: 05/11/2025 Start: 01-27-2025 End: 01-27-2025 Patient encounter procedure Maternal Medicine Comment on above: Nuchal OB Start: 01-17-2025 End: 01-17-2025 Patient encounter procedure 01/17/2025 10:20 AM EDT Routine Office Visit OB/Gynecology [address] [place] [address] Mireya Mars MD [address] [place] [address] 1st OB LMP: 11/08/2024 OB/Gynecology Comment on above: 1st OB LMP: 11/08/19 Start: 12-30-2024 End: 03-31-2025 ANEMIA REFLEX PANEL ANEMIA REFLEX PANEL Lab Routine Encounter for supervision of high risk in first trimester, antepartum 7 weeks gestation of with uncertain dates in first trimester Depression with anxiety Hx of migraines Expected: 12/30/2024, Expires: 03/31/2025 [facility] Comment on above: Expected: 12/30/2024 , Expires: 03/31/2025 Start: 12-30-2024 End: 03-31-2025 CARRIER SCREEN, STANDARD CARRIER SCREEN, STANDARD Lab Routine Encounter for supervision of high risk in first trimester, antepartum 7 weeks gestation of Expected: 12/30/2024, Expires: 03/31/2025 [facility] Comment on above: Expected: 12/30/2024 , Expires: 03/31/2025 Start: 12-30-2024 End: 03-31-2025 Hemoglobin A1c in Blood HEMOGLOBIN A1C Lab Routine Encounter for supervision of high risk in first trimester, antepartum 7 weeks gestation of with uncertain dates in first trimester Depression with anxiety Hx of migraines Expected: 12/30/2024, Expires: 03/31/2025 [facility] Comment on above: Expected: 12/30/2024 , Expires: 03/31/2025 Start: 12-30-2024 End: 03-31-2025 Hepatitis B virus surface Ag [Presence] in Serum HEPATITIS B SURFACE ANTIGEN Lab Routine Encounter for supervision of high risk in first trimester, antepartum 7 weeks gestation of with uncertain dates in first trimester Depression with anxiety Hx of migraines Expected: 12/30/2024, Expires: 03/31/2025 [facility] Comment on above: Expected: 12/30/2024 , Expires: 03/31/2025 Start: 12-30-2024 End: 03-31-2025 Hepatitis C virus Ab [Presence] in Serum HEPATITIS C ANTIBODY IA WITH CONFIRMATION Lab Routine Encounter for supervision of high risk in first trimester, antepartum 7 weeks gestation of with uncertain dates in first trimester Depression with anxiety Hx of migraines Expected: 12/30/2024, Expires: 03/31/2025 [facility] Comment on above: Expected: 12/30/2024 , Expires: 03/31/2025 Start: 12-30-2024 End: 03-31-2025 HIV 1+2 Ab [Presence] in Serum or Plasma by Immunoassay HIV 1/2 COMBO WITH REFLEX TO DIFFERENTIATION Lab Routine Encounter for supervision of high risk in first trimester, antepartum 7 weeks gestation of with uncertain dates in first trimester Depression with anxiety Hx of migraines Expected: 12/30/2024, Expires: 03/31/2025 [facility] Comment on above: Expected: 12/30/2024 , Expires: 03/31/2025 Start: 12-30-2024 End: 12-30-2025 OBSTETRIC ULTRASOUND WHI OBSTETRIC ULTRASOUND WHI Anc Imaging Routine Encounter for supervision of high risk in first trimester, antepartum 7 weeks gestation of with uncertain dates in first trimester Depression with anxiety Hx of migraines Expected: 12/30/2024, Expires: 12/30/2025 [facility] Comment on above: Expected: 12/30/2024 , Expires: 12/30/2025 Start: 12-30-2024 End: 03-31-2025 RUBELLA IGG ANTIBODY RUBELLA IGG ANTIBODY Lab Routine Encounter for supervision of high risk in first trimester, antepartum 7 weeks gestation of with uncertain dates in first trimester Depression with anxiety Hx of migraines Expected: 12/30/2024, Expires: 03/31/2025 [facility] Comment on above: Expected: 12/30/2024 , Expires: 03/31/2025 Start: 12-30-2024 End: 03-31-2025 SYPHILIS TREPONEMAL W/REFLEX SYPHILIS TREPONEMAL W/REFLEX Lab Routine Encounter for supervision of high risk in first trimester, antepartum 7 weeks gestation of with uncertain dates in first trimester Depression with anxiety Hx of migraines Expected: 12/30/2024, Expires: 03/31/2025 [facility] Comment on above: Expected: 12/30/2024 , Expires: 03/31/2025 Start: 12-30-2024 End: 03-31-2025 TYPE + SCREEN TYPE + SCREEN Blood Bank Routine Encounter for supervision of high risk in first trimester, antepartum 7 weeks gestation of with uncertain dates in first trimester Depression with anxiety Hx of migraines Expected: 12/30/2024, Expires: 03/31/2025 [facility] Comment on above: Expected: 12/30/2024 , Expires: 03/31/2025 Start: 12-30-2024 End: 12-30-2024 Patient encounter procedure OB/Gynecology Comment on above: New OB Start: 12-27-2024 End: 12-27-2024 ambulatory 12/27/2024 8:30 AM EDT Results Only [facility] [address] [place] [id number] [facility] Start: 12-16-2024 End: 12-16-2024 Patient encounter procedure 12/16/2024 1:45 PM EDT Initial Office Visit OB/Gynecology [address] [place] [address] Augustin Boyce APRN.MANUFACTURING OPERATIONS MANAGER [address] [place] [address] 1st OB LMP: 11/08/2024 OB/Gynecology Comment on above: 1st OB LMP: 11/08/19 Start: 12-15-2024 End: 03-16-2025 Choriogonadotropin.beta subunit [Units/volume] in Serum or Plasma HCG QUANTITATIVE Lab Routine Positive test Expected: 12/15/2024, Expires: 03/16/2025 [facility] Work Phone: Comment on above: Expected: 12/15/2024 , Expires: 03/16/2025 Start: 12-13-2024 End: 03-14-2025 CBC panel - Blood by Automated count COMPLETE BLOOD COUNT Lab Routine Screening for deficiency anemia Expected: 12/13/2024, Expires: 03/14/2025 [facility] Comment on above: Expected: 12/13/2024 , Expires: 03/14/2025 Start: 12-13-2024 End: 03-14-2025 Chlamydia trachomatis+Neisseria gonorrhoeae DNA [Presence] in Unspecified specimen by TEE with probe detection GONORRHEA/CHLAMYDIA NAAT Lab Routine Screening for STD (sexually transmitted disease) Expected: 12/13/2024, Expires: 03/14/2025 [facility] Work Phone: Comment on above: Expected: 12/13/2024 , Expires: 03/14/2025 Start: 12-13-2024 End: 03-14-2025 Comprehensive metabolic 2000 panel - Serum or Plasma COMPREHENSIVE METABOLIC PANEL Lab Routine Encounter for screening for diabetes mellitus Expected: 12/13/2024, Expires: 03/14/2025 [facility] Comment on above: Expected: 12/13/2024 , Expires: 03/14/2025 Start: 12-13-2024 End: 03-14-2025 Hepatitis C virus Ab [Presence] in Serum HEPATITIS C ANTIBODY IA WITH CONFIRMATION Lab Routine Special screening examination for viral disease Expected: 12/13/2024, Expires: 03/14/2025 [facility] Comment on above: Expected: 12/13/2024 , Expires: 03/14/2025 Start: 12-13-2024 End: 03-14-2025 HIV 1+2 Ab [Presence] in Serum or Plasma by Immunoassay HIV 1/2 COMBO WITH REFLEX TO DIFFERENTIATION Lab Routine Screening for HIV (human immunodeficiency virus) Expected: 12/13/2024, Expires: 03/14/2025 [facility] Comment on above: Expected: 12/13/2024 , Expires: 03/14/2025 Start: 12-13-2024 End: 03-14-2025 Lipid 1996 panel - Serum or Plasma LIPID PANEL BASIC Lab Routine Screening for lipid disorders Expected: 12/13/2024, Expires: 03/14/2025 [facility] Comment on above: Expected: 12/13/2024 , Expires: 03/14/2025 Start: 12-13-2024 End: 03-14-2025 Thyrotropin [Units/volume] in Serum or Plasma THYROID STIMULATING HORMONE Lab Routine Screening for thyroid disorder Screening for lipid disorders Expected: 12/13/2024, Expires: 03/14/2025 [facility] Comment on above: Expected: 12/13/2024 , Expires: 03/14/2025 Start: 06-06-2024 Covid-19 Vaccine ( season) Covid-19 Vaccine ( season) [facility] Start: 05-06-2022 Urine microalbumin profile DTaP,Tdap,Td Vaccine (7 - Td or Tdap) [facility] Start: 2022 Screening for malign ant neoplasm of cervix Cervical Cancer Screening [facility] Start: 2020 Hepatitis B Vaccine (1 of 3 - 19+ 3-dose series) Hepatitis B Vaccine (1 of 3 - 19+ 3-dose series) [facility] Start: 2020 Urine microalbumin profile DTaP,Tdap,Td Vaccine (1 - Tdap) [facility] Start: 2019 Anxiety Screening Anxiety Screening [facility] Start: 2019 Depression Screening Depression Scre ening [facility] Start: 2019 GC (Gonorrhea) Screening (18-24) GC (Gonorrhea) Screening (18-24) [facility] Start: 2019 Hepatitis C screening Hepatitis C Sc hood [facility] Start: 07-20-2019 HIV screening HIV Screening [facility] Start: 2019 Screening for Chlamy guerita trachomatis Chlamydia Screening (18-24) [facility] Start: 2017 Meningococcal B Vacc ine (1 of 2 - Standard) Meningococcal B Vaccine (1 of 2 - Standard) [facility] Start: 2016 HPV Vaccine (1 - 3-d ose series) HPV Vaccine (1 - 3-dose series) [facility] Start: 2015 Peds To Adult Transition Annual Assessment Peds To Adult Transition Annual Assessment [facility] Start: 2013 Peds To Adult Transition Initial Discussion Peds To Adult Transition Initial Discussion [facility] Bacteria identified in Urine by Culture BACTERIAL CULTURE, URINE Microbiology Routine Encounter for supervision of high risk in first trimester, antepartum 7 weeks gestation of with uncertain dates in first trimester Depression with anxiety Hx of migraines 12/30/2024 2:44 PM EDT [facility] Bacteria identified in Urine by Culture BACTERIAL CULTURE, URINE Microbiology Routine Urinary frequency 01/06/2025 4:19 PM T [facility] Bacteria identified in Urine by Culture BACTERIAL CULTURE, URINE Microbiology Routine Frequent urination 06/01/2025 3:56 PM EDT [facility] BACTERIAL VAGINOSIS NAAT BACTERIAL VAGINOSIS NAAT Lab Routine Vaginal discharge during in first trimester ([facility]) 01/06/2025 4:19 PM T [facility] Work Phone: BACTERIAL VAGINOSIS NAAT BACTERIAL VAGINOSIS NAAT Lab Routine Vaginal itching 05/18/2025 2:23 PM T [facility] Work Phone: HOWARD/TRICHOMONAS NAAT HOWARD/TRICHOMONAS NAAT Lab Routine Vaginal discharge during in first trimester ([facility]) 01/06/2025 4:19 PM EDT [facility] HOWARD/TRICHOMONAS NAAT HOWARD/TRICHOMONAS NAAT Lab Routine Vaginal itching 05/18/2025 2:23 PM T [facility] Chlamydia trachomatis+Neisseria gonorrhoeae DNA [Presence] in Unspecified specimen by TEE with probe detection GONORRHEA/CHLAMYDIA NAAT Lab Routine Encounter for supervision of high risk in first trimester, antepartum 7 weeks gestation of with uncertain dates in first trimester Depression with anxiety Hx of migraines 12/30/2024 2:44 PM EDT [facility] PAP TEST PAP TEST Lab Rou robert Encounter for supervision of high risk in first trimester, antepartum 7 weeks gestation of with uncertain dates in first trimester Depression with anxiety Hx of migraines 12/30/2024 2:44 PM EDT [facility] POC SOCIAL MEDIA EXECUTIVE ULTRASOUND POC SOCIAL MEDIA EXECUTIVE ULTRASO UND Anc Imaging Routine with uncertain dates in first trimester Ordered: 12/30/2024 [facility] Work Phone: Comment on above: Ordered: 12/30/2024 TRICHOMONAS VAGINALI S NAAT TRICHOMONAS VAGINALIS NAAT Lab Routine Encounter for supervision of high risk in first trimester, antepartum 7 weeks gestation of 12/30/2024 2:44 PM EDT [facility] UA DIP,URINE HCG (POC) UA DIP,UR INE HCG (POC) Lab Routine Frequent urination Ordered: 06/01/2025 [facility] Work Phone: Comment on above: Ordered: 06/01/2025 Immunizations Immunization Date Immunization Notes Care Provider Viv lay 05-18-2025 tetanus toxoid, redu renae diphtheria toxoid, and acellular pertussis vaccine, adsorbed Melody Sauer OCCUPATIONAL THERAPY ASST.CNM Work Phone: [facility] 10-19-2021 COVID-19 original vaccine, full dose, monovalent (MODERNA) Aayush Roselyn OCCUPATIONAL THERAPY ASST.MANUFACTURING OPERATIONS MANAGER Work Phone: [facility] 07-28-2021 COVID-19 original vaccine, full dose, monovalent (MODERNA) Aayush Roselyn OCCUPATIONAL THERAPY ASST.MANUFACTURING OPERATIONS MANAGER Work Phone: [facility] 01-26-2021 COVID-19 original vaccine, full dose, monovalent (MODERNA) Aayush Roselyn OCCUPATIONAL THERAPY ASST.MANUFACTURING OPERATIONS MANAGER Work Phone: [facility] 06-18-2017 influenza virus vacc ine, unspecified formulation Aayush Dempsey OCCUPATIONAL THERAPY ASST.MANUFACTURING OPERATIONS MANAGER Work Phone: [facility] 06-18-2017 Meningococcal, MCV4, unspecified conjugate formulation(groups A, C, Y and W-135) Aayushana Dempsey OCCUPATIONAL THERAPY ASST.MANUFACTURING OPERATIONS MANAGER Work Phone: [facility] 07-11-2016 influenza, injectable,quadrivalent, preservative free, pediatric Aayush Roselyn OCCUPATIONAL THERAPY ASST.MANUFACTURING OPERATIONS MANAGER Work Phone: [facility] 07-25-2015 influenza, injectable,quadrivalent, preservative free, pediatric Aayush Roselyn OCCUPATIONAL THERAPY ASST.MANUFACTURING OPERATIONS MANAGER Work Phone: [facility] 08-02-2014 influenza, injectable,quadrivalent, preservative free, pediatric Aayush Roselyn OCCUPATIONAL THERAPY ASST.MANUFACTURING OPERATIONS MANAGER Work Phone: [facility] 08-10-2013 influenza virus vacc ine, unspecified formulation Aayush Roselyn OCCUPATIONAL THERAPY ASST.MANUFACTURING OPERATIONS MANAGER Work Phone: [facility] 04-19-2013 human papilloma viru s vaccine, quadrivalent Aayush Roselyn OCCUPATIONAL THERAPY ASST.MANUFACTURING OPERATIONS MANAGER Work Phone: [facility] 04-19-2013 Meningococcal, MCV4, unspecified conjugate formulation(groups A, C, Y and W-135) Aayush Roselyn OCCUPATIONAL THERAPY ASST.MANUFACTURING OPERATIONS MANAGER Work Phone: [facility] 05-06-2012 tetanus toxoid, redu renae diphtheria toxoid, and acellular pertussis vaccine, adsorbed Aayush Roselyn OCCUPATIONAL THERAPY ASST.MANUFACTURING OPERATIONS MANAGER Work Phone: [facility] 04-02-2012 hepatitis A vaccine, unspecified formulation Aayush Roselyn OCCUPATIONAL THERAPY ASST.MANUFACTURING OPERATIONS MANAGER Work Phone: [facility] 04-02-2012 human papilloma viru s vaccine, quadrivalent Aayush Roselyn OCCUPATIONAL THERAPY ASST.MANUFACTURING OPERATIONS MANAGER Work Phone: [facility] 04-02-2012 poliovirus vaccine, inactivated Aayush Roselyn OCCUPATIONAL THERAPY ASST.MANUFACTURING OPERATIONS MANAGER Work Phone: [facility] 11-05-2011 hepatitis A vaccine, unspecified formulation Aayush Roselyn OCCUPATIONAL THERAPY ASST.MANUFACTURING OPERATIONS MANAGER Work Phone: [facility] 11-05-2011 human papilloma viru s vaccine, quadrivalent Aayush Roselyn OCCUPATIONAL THERAPY ASST.MANUFACTURING OPERATIONS MANAGER Work Phone: [facility] 11-05-2011 influenza virus vacc ine, unspecified formulation Aayush Roselyn OCCUPATIONAL THERAPY ASST.MANUFACTURING OPERATIONS MANAGER Work Phone: [facility] 09-17-2010 influenza virus vacc ine, unspecified formulation Aayush Roselyn OCCUPATIONAL THERAPY ASST.MANUFACTURING OPERATIONS MANAGER Work Phone: [facility] 10-30-2009 influenza virus vacc ine, unspecified formulation Aayush Roselyn OCCUPATIONAL THERAPY ASST.MANUFACTURING OPERATIONS MANAGER Work Phone: [facility] 10-30-2009 varicella virus vaccine Amanda ana Roselyn OCCUPATIONAL THERAPY ASST.MANUFACTURING OPERATIONS MANAGER Work Phone: [facility] 05-10-2006 measles, mumps and rubella virus vaccine Aayush Roselyn OCCUPATIONAL THERAPY ASST.MANUFACTURING OPERATIONS MANAGER Work Phone: [facility] 12-02-2005 diphtheria, tetanus toxoids and acellular pertussis vaccine Aayush Roselyn OCCUPATIONAL THERAPY ASST.MANUFACTURING OPERATIONS MANAGER Work Phone: [facility] 04-30-2004 varicella virus vaccine Amanda ana Roselyn OCCUPATIONAL THERAPY ASST.MANUFACTURING OPERATIONS MANAGER Work Phone: [facility] 12-11-2002 haemophilus influenz ae type b vaccine, conjugate unspecified formulation Aayush Roselyn OCCUPATIONAL THERAPY ASST.MANUFACTURING OPERATIONS MANAGER Work Phone: [facility] 11-27-2002 hepatitis B vaccine, pediatric or pediatric/adolescent dosage Aayush Roselyn OCCUPATIONAL THERAPY ASST.MANUFACTURING OPERATIONS MANAGER Work Phone: [facility] 11-06-2002 diphtheria, tetanus toxoids and acellular pertussis vaccine Aayush Roselyn OCCUPATIONAL THERAPY ASST.MANUFACTURING OPERATIONS MANAGER Work Phone: [facility] 09-18-2002 measles, mumps and rubella virus vaccine Aayush Roselyn OCCUPATIONAL THERAPY ASST.MANUFACTURING OPERATIONS MANAGER Work Phone: [facility] 2001 poliovirus vaccine, inactivated Aayush Roselyn OCCUPATIONAL THERAPY ASST.MANUFACTURING OPERATIONS MANAGER Work Phone: [facility] 2001 haemophilus influenz ae type b vaccine, conjugate unspecified formulation Aayush Roselyn OCCUPATIONAL THERAPY ASST.MANUFACTURING OPERATIONS MANAGER Work Phone: [facility] 2001 diphtheria, tetanus toxoids and acellular pertussis vaccine Aayush Roselyn OCCUPATIONAL THERAPY ASST.MANUFACTURING OPERATIONS MANAGER Work Phone: [facility] 2001 poliovirus vaccine, inactivated Aayush Roselyn OCCUPATIONAL THERAPY ASST.MANUFACTURING OPERATIONS MANAGER Work Phone: [facility] 2001 poliovirus vaccine, inactivated Aayush Roselyn OCCUPATIONAL THERAPY ASST.MANUFACTURING OPERATIONS MANAGER Work Phone: [facility] 2001 diphtheria, tetanus toxoids and acellular pertussis vaccine Aayush Roselyn OCCUPATIONAL THERAPY ASST.MANUFACTURING OPERATIONS MANAGER Work Phone: [facility] 2001 haemophilus influenz ae type b vaccine, conjugate unspecified formulation Aayush Roselyn OCCUPATIONAL THERAPY ASST.MANUFACTURING OPERATIONS MANAGER Work Phone: [facility] 2001 hepatitis B vaccine, pediatric or pediatric/adolescent dosage Aayush Roselyn OCCUPATIONAL THERAPY ASST.MANUFACTURING OPERATIONS MANAGER Work Phone: [facility] 2001 diphtheria, tetanus toxoids and acellular pertussis vaccine Aayush Roselyn OCCUPATIONAL THERAPY ASST.MANUFACTURING OPERATIONS MANAGER Work Phone: [facility] 2001 haemophilus influenz ae type b vaccine, conjugate unspecified formulation Aayush Roselyn OCCUPATIONAL THERAPY ASST.MANUFACTURING OPERATIONS MANAGER Work Phone: [facility] 2001 poliovirus vaccine, inactivated Aayush Roselyn OCCUPATIONAL THERAPY ASST.MANUFACTURING OPERATIONS MANAGER Work Phone: [facility] 2001 hepatitis B vaccine, pediatric or pediatric/adolescent dosage Aayush Roselyn OCCUPATIONAL THERAPY ASST.MANUFACTURING OPERATIONS MANAGER Work Phone: [facility] Payers Date Payer Category Payer Medicaid [id number] 2024 Medicaid [id number] 2022 Private Health Insurance [id number] 2022 Private Health Insurance [id number] Social History Date Type Detail Facility Start: 12-13-2024 Tobacco smoking stat [facility] Never smoked tobacco [facility] Start: 12-13-2024 Tobacco use and exposure Smoke less tobacco non-user [facility] Start: 12-13-2024 End: 06-01-2025 Alcoholic beverage intake Lifetime non-drinker (finding) [facility] Start: 12-13-2024 End: 01-06-2025 History of Social function [facility] Start: 12-13-2024 End: 01-06-2025 Tobacco use panel [facility] Start: 12-07-2024 Adult Depression Screening Assessment 0 [facility] Start: 2001 Sex assigned at Not on file [facility] Start: 12-27-2024 Education 17 [facility] Start: 11-16-2024 [facility] The thought of romel simpson myself has occurred to me Hardly ever [facility] Start: 2001 Sex assigned at Female C [facility] Start: 01-29-2025 Gender identity Identifies as female gender (finding) [facility] Start: 01-29-2025 Sexual orientation Heterosexual (fin elliott) [facility] Goals Date Patient Goal Desired Activity /State Personal health goal Clinical Notes 12-13-2024 to 06-27-2025 Patient InstructionsPrenatal Quick Notes - Melody Sauer APRN.[facility] - 06/15/2025 2:17 PM EDTPrenatal Quick Notes - Melody Sauer APRN.[facility] - 06/15/2025 2:17 PM EDTPatient Instructions Note Date & Type Note Facility 06-27-2025 Note HNO ID: [id number] Author: DANNIELLE ALMARAZ PT Service: ? Author Type: Physical Therapist Type: Progress Notes Filed: 06/27/2025 13:04 Note Text: Episode Visit Count: 6 Therapist That Will Accept/Oversee The Plan Of Care: Dannielle Almaraz PT, DPT Start of Care Date: 03/09/25 Onset Date: 01/27/25 Plan of Care Certification Date: 06/27/25 Next Certification Due Date: 09/25/25 Patient Identified by Name and Date of : Yes REHABILITATION AND SPORTS THERAPY PHYSICAL THERAPY PROGRESS REPORT PLAN OF CARE UPDATE: Assessment: Renetta Kaufman demonstrates minimal improvement in physical activities and recreational activities. The patient has progressed toward goals. Patient continues to present with impairments in independence in exercise and symptom management that interfere with physical activities, recreational activities . Current prognosis is Good due to: current objective clinical presentation, good support system/ coping skills . The patient will benefit from continued skilled therapy services to meet the updated goals for this plan of care as noted below. Goals for Episode of Care: established 03/09/25 , updated on 04/13/2025, 05/17/25 Patient demonstrates independence and compliance with home exercise program.-PROGRESSING Patient displays improved range of motion, coordination, and muscle dynamics of pelvic floor as evidenced by the ability to lengthen without paradoxical contraction at least 90% of the time to normalize bladder/bowel function; reduce pelvic pain.- PROGRESSING Patient reports increased ability to fully empty bladder/bowels at least 90% of the time to normalize bladder/bowel function. - MET Patient reports increased water intake to >60 ounces/day to promote bladder and bowel health.- MET Patient demonstrates ability to perform diaphragmatic breathing and relaxation practice independently to allow for decreased muscle tightness, decreased pain, and improved bladder/bowel function. - MET Patient will report decreased pain rating by 2 points to meet minimal clinical important difference for numeric pain rating scale. - MET Patient Goals: healthy , improve bowel emptying Time Frame for Goals and Treatment : 09/25/25 (KELLI) Planned Interventions, Frequency, and Duration: 1x every other week, 6 weeks Total Number of Visits Planned: 2 (, then resume as needed ) Patient to be seen for Therapeutic exercise (25822), Neuromuscular re-education (43081), Manual therapy (32125), Therapeutic activities (72510), Self-group home management (37112), Patient/Family/Caregiver Education, Body Mechanics Training PLAN FOR NEXT VISIT: comfort strategies for LANDD, PFM lengthening and prep for delivery. SUBJECTIVE: 33w,6d gestation. Soreness in groin/proximal adductors- especially with truning in bed and walking. Seeing a chiro in addidtion to coming here. Sleep has been challenging. Bowel movements have been easier and colace daily. Some urinary leaks here and there, wearing liner daily. Functional Limitations: physical activities, recreational activities Pain: Pain Pain Level: 3 Pain Location: Hip - Left, Hip - Right Description: Tightness Frequency: Intermittent (agg with walking, transitional movements) Post Treatment Pain Post Treatment Pain Level: Better PROMIS Scales 06/27/2025 05/16/2025 04/13/2025 Higher is Better Self-Eff Symptom - T Score 43 (Average) 39 (Low) 44 (Average) Self-Eff Symptom - Percentile 24 14 27 06/27/2025 05/16/2025 04/13/2025 Lower is Better Pain Interference - T Score 60 (mild) 59 (mild) 60 (mild) Pain Interference - Percentile 16 18 16 T-Score and Percentile Interpretation T-scores: mean of general population = 50. 5 points is clinically meaningfully difference Percentiles provide an indication of how the patient's score ranks in relation to the general population. Higher percentile rankings indicate better function/quality of life. 50th percentile is the average of the general population and indicates half of respondents had a worse score. OBJECTIVE MEASURES WITH LEVEL OF FUNCTION: Pelvic Floor Bowel Movement Frequency: 1x/day Pelvic Floor Muscle Assessment Consent for pelvic assessment/testing and treatment: Patient was educated regarding pelvic floor physical therapy assessment/treatment which may include pelvic floor and girdle muscle assessment externally or internally (vaginal or rectal approach)., Patient verbalized consent for the above treatment approaches today. Patient understands they have control of the treatment and an opportunity to stop treatment at any time. (1st layer assessment and perineal mobilization discussed and performed, no pain/discomfort reported) Pelvic Floor Muscle Assessment: Muscle Dynamics Ability to Lengthen pelvic floor: Difficulty at first, but improves with cueing and practice Pelvic Floor Manual Assessment External Pelvic Region Tenderness/ Hyp (more content not included)... [facility] 06-15-2025 Instructions Melody Sauer APRN.CNM - 06/15/2025 2:18 PM EDT Images from the original note were not included. What is my perineum? Your perineum is the area between your vaginal opening and your rectum. This area stretches when you give , and sometimes the perineum or vagina will tear as your baby is being born. If your health care provider cuts an episiotomy during your , it is this area that is cut. You may need stitches after your baby is born if you have a tear or have an episiotomy. How often do perineal tears occur? About 4 to 8 out of every 10 women who give vaginally will have some tear in their perineum. About two?thirds of these women will need some stitches. Is an episiotomy necessary? An episiotomy is not necessary for most women. Although they were common before the , they are rarely done today. However, sometimes your health care provider may recommend an episiotomy just as your baby is being born. For example, an episiotomy can help if your baby needs to be born very quickly. You can ask your health care provider to talk with you about episiotomy during a visit. Can my health care provider do anything to help me avoid a tear? There are many ways that your health care provider can help to reduce your chance of tearing. For example, your provider may: Apply a warm compress to the perineum just before the baby comes out Recommend specific positions for you to be in as you push Provide gentle downward pressure on the baby's head as your baby is coming out Ask that you push your baby out between contractions Avoid the use of forceps or a vacuum to help your baby be born Can I do anything before the to help me avoid a tear? Preventing a perineal tear that occurs during has been the subject of many research studies. Several studies have found that perineal massage during the last weeks of can reduce tearing at for women giving for the first time. This massage--using 2 fingers to stretch your perineal tissues--is performed by you, in your home, once or twice a week, for the last 4 to 6 weeks of your . The next page of this handout tells how to do this massage. For every 15 women who do perineal massage, one woman will avoid an episiotomy and perineal tearing that needs stitches. While you massage, you can practice relaxing the muscles in your perineum. This can help you prepare for the stretching, burning feeling you may have when your baby's head is born. Relaxing this area during can help prevent tearing. Does perineal massage in help all women? Massage seems to work better for some women than others. Women having their first baby, women who are 30 years or older, and women who have had episiotomies before have fewer tears and less severe tears when perineal massage is done during the last weeks of . Can my partner help? Yes! Many women find that it is easier to have their partners do this massage. See the instructions for perineal massage on the next page for more information. Are there any risks to perineal massage during ? Not that we know of. It is free. It doesn't hurt. It is easy to do. And most women don't mind doing it. However, you should not stretch the perineum until it hurts or massage too often, which can hurt the skin in that area. Do not do perineal massage more than once or twice a week. Women who do it more often do not have a lower risk of perineal tearing. Check with your health care provider before beginning perineal massage. And, if you believe your amniotic fluid (bag of tyler) is leaking, check with your health care provider before putting anything in your vagina. Instructions for Perineal Massage During Wash your hands well, and make sure your fingernails are short. Relax in a private place where you can rest with your legs open and your knees bent. Some women like to lean on pillows for back support. Lubricate your thumbs and the perineal tissues. Use a lubricant such as vitamin E oil, coconut oil, almond oil, or any vegetable oil used for cooking--like olive oil. You may also try a water?soluble jelly, such as K?Y jelly, or your body's natural vaginal lubricant. Do not use baby oil, mineral oil, or petroleum jelly (Vaseline). Place your thumbs about 1 to 1.5 inches inside your vagina (see Figure 1). Press down (toward the anus) and to the sides until you feel a slight burning, stretching sensation. Hold that stretched position for 1 or 2 minutes. With your thumbs, slowly massage the lower half of the vagina using a U?shaped movement for 2 to 3 minutes at most. Concentrate on relaxing your muscles. This is a good time to practice slow, deep breathing techniques. Partners: If your partner is doing the perineal massage, follow the same basic instructions above. However, your partner should use his or her index fingers to do the massage (instead of thumbs). The same side?to?side, U?shaped, downward pressure method should be used. Good communication is important--be sure to tell your partner if you have too much pain or burning! Figure 1 1 Perineal Massage Flesch?[employer] Grade Level: 7.2 Approved October 2015. This handout replaces Perineal Massage in published in Volume 50, Issue 1, Oct/Nov 2004 SIGNS AND SYMPTOMS OF LABOR 1. Contractions every 10 minutes or more often 2. Clear, pink, or brownish fluid (water) leaking from vagina 3. Feeling that baby is pushing down, pressure 4. Low, dull backache 5. Cramps that feel like a period 6. Cramps with or without diarrhea If you notice any of the above symptoms, contact our office at [phone] and ask to speak with a nurse. After hours, you can call doctors registry at [phone] OR call [facility] at [phone] and ask to have the doctor business operations manager paged. If you consider this an emergency, dial 7--7 or go to your nearest emergency department. NEED HELP? Are you dealing with a violent or abusive relationship? Are you a victim of rape or sexual assult? Call [facility] ([place]) 24 hour Crisis Hotline: 946.741.3068 or 372-328-9337. MANUAL Your Guide to a Healthy manual is now on-line. Visit [email or web address] to download your free copy documented in this encounter [facility] 06-15-2025 Progress note Formatting of t his note might be different from the original. KRISTA-S: Renetta Kaufman is a 24 year old female who presents at 28w1d with KELLI:08/09/2025, by Ultrasound for a routine visit. Denies headache, visual changes, chest pain, shortness of breath, vaginal bleeding, leakage of fluid, or dysuria. O: See flow sheet Gen: No apparent distress Abd: Gravid, nontender. ASSESSMENT/PLAN: 1. Encounter for supervision of normal first in second trimester -Continue PNV and ASA -Handout on perineal massage 2. 32 weeks gestation of 3. Depression with anxiety -Continue Zoloft 100mg PO once daily 4. Heartburn during in third trimester -Continue protonix 5. Constipation during in third trimester -Continue colace PTL precautions reviewed and when to call RTO in 2 weeks Melody Sauer APRN.CNM [facility] 06-15-2025 Miscellaneous Notes KRISTA-S: Renetta Kaufman is a 24 year old female who presents at 28w1d with KELLI:08/09/2025, by Ultrasound for a routine visit. Denies headache, visual changes, chest pain, shortness of breath, vaginal bleeding, leakage of fluid, or dysuria. O: See flow sheet Gen: No apparent distress Abd: Gravid, nontender. ASSESSMENT/PLAN: 1. Encounter for supervision of normal first in second trimester -Continue PNV and ASA -Handout on perineal massage 2. 32 weeks gestation of 3. Depression with anxiety -Continue Zoloft 100mg PO once daily 4. Heartburn during in third trimester -Continue protonix 5. Constipation during in third trimester -Continue colace PTL precautions reviewed and when to call RTO in 2 weeks Melody Sauer APRN.CNM documented in this encounter [facility] 06-10-2025 Telephone encounter Note Order signed and faxed. Estefani Iglesias RN [facility] 06-10-2025 Miscellaneous Notes Order signed and faxed. Estefani Iglesias RN Breast pump order received from [facility]. To KRISTA to sign. Estefani Iglesias RN documented in this encounter [facility] 06-08-2025 Telephone encounter Note Breast pump order received from [facility]. To KRISTA to sign. Estefani Iglesias RN [facility] 06-01-2025 Telephone encounter Note Spoke with patient and she would [facility] Dental permission letter sent to patient via [employer]. Maryam Silva RN [facility] 06-01-2025 Miscellaneous Notes Spoke with patient and she would like letter released to her MyChart. Dental permission letter sent to patient via [employer]. Maryam Silva RN Patient needs a form sent her dentist stating she can have routine cleaning completed. Phone number is [phone]. Unsure of fax number. If there is a specific form for me to sign, please let me know. Shawna Wilson APRN.CNM documented in this encounter [facility] 06-01-2025 Telephone encounter Note Patient needs a form sent her dentist stating she can have routine cleaning completed. Phone number is [phone]. Unsure of fax number. If there is a specific form for me to sign, please let me know. Shawna Wilson APRN.CNM [facility] 06-01-2025 Instructions Luz Elena Colbert MA - 06/01/2025 2:30 PM EDT SEQUENTIAL SCREENINGS The [facility] offers sequential screenings for women who are interested in screenings for chromosomal abnormalities and certain defects during a . The sequential screen combines ultrasound and blood tests to determine the risk of chromosomal abnormalities, including Down's Syndrome (Trisomy 21) and Trisomy 18, as well as open neural tube defects including spina bifida. Ultrasound examination is performed between 11 weeks and 13 weeks gestational age. Blood tests are drawn after the ultrasound and again later in the between 15 and 21 weeks gestational age. Please let your physician know if you are interested in this testing. It will require an appointment with our mechanical sound technician. This is not an ultrasound performed by a physician in our office during a routine visit. SIGNS AND SYMPTOMS OF LABOR 1. Contractions every 10 minutes or more often 2. Clear, pink, or brownish fluid (water) leaking from vagina 3. Feeling that baby is pushing down, pressure 4. Low, dull backache 5. Cramps that feel like a period 6. Cramps with or without diarrhea If you notice any of the above symptoms, contact our office at [phone] and ask to speak with a nurse. After hours, you can call doctors registry at [phone] OR call [facility] at [phone] and ask to have the doctor business operations manager paged. If you consider this an emergency, dial 9-1-3 or go to your nearest emergency department. NEED HELP? Are you dealing with a violent or abusive relationship? Are you a victim of rape or sexual assult? Call [facility] ([facility] 24 hour Crisis Hotline: 924.437.2759 or 710-876-1885. MANUAL Your Guide to a Healthy manual is now on-line. Visit [email or web address] to download your free copy documented in this encounter [facility] 06-01-2025 Progress note Formatting of t his note might be different from the original. CP- CENTERING S: Renetta Kaufman is a 25 year old female who presents at 30 weeks gestation for routine visit/centering group. Requesting urine to be sent to rule out UTI. Stated has a lot of pressure and never had UTI symptoms when diagnosed with one so wanted to be on top of things. 1 Denies headache, visual changes, chest pain, shortness of breath, vaginal bleeding, leakage of fluid, or dysuria. Continues to see chiropractor, pelvic floor therapy, and counseling. Wearing support belt but still having back and groin pain. Increased acid reflux that wakes her up at night coughing. O: See flow sheet Gen: No apparent distress Abd: Gravid, nontender ASSESSMENT/PLAN: 1. 30 weeks gestation of 2. Encounter for supervision of normal first in third trimester 3. Depression with anxiety 4. Heartburn in - UA dip- + trace blood, leukocytes- culture sent- no treatment as she is not symptomatic - Rx Protonix 20 mg PO Daily - Continue Zoloft 100 mg PO daily- mood stable - Continue childcare director and PT - Requesting voucher for CBE- will contact hospital - RTO 2 weeks or sooner Shawna Wilson APRN.CNM T [facility] 06-01-2025 Miscellaneous Notes CP- CENTERING S: Renetta Kaufman is a 25 year old female who presents at 30 weeks gestation for routine visit/centering group. Requesting urine to be sent to rule out UTI. Stated has a lot of pressure and never had UTI symptoms when diagnosed with one so wanted to be on top of things. 1 Denies headache, visual changes, chest pain, shortness of breath, vaginal bleeding, leakage of fluid, or dysuria. Continues to see chiropractor, pelvic floor therapy, and counseling. Wearing support belt but still having back and groin pain. Increased acid reflux that wakes her up at night coughing. O: See flow sheet Gen: No apparent distress Abd: Gravid, nontender ASSESSMENT/PLAN: 1. 30 weeks gestation of 2. Encounter for supervision of normal first in third trimester 3. Depression with anxiety 4. Heartburn in - UA dip- + trace blood, leukocytes- culture sent- no treatment as she is not symptomatic - Rx Protonix 20 mg PO Daily - Continue Zoloft 100 mg PO daily- mood stable - Continue childcare director and PT - Requesting voucher for CBE- will contact hospital - RTO 2 weeks or sooner Shawna Plotts, OCCUPATIONAL THERAPY ASST.CNM documented in this encounter [facility] 05-23-2025 Instructions Mandy Caldwell APRN.CNP - 05/23/2025 12:40 PM EDT We discussed your thrombosed hemorrhoid: - You are doing much better since the incision and drainage (I&D) procedure on May 09. The area has shrunk, and you are no longer experiencing pain or bleeding. - Continue the following measures to prevent aggravation of your hemorrhoids: - Maintain a high-fiber diet and stay hydrated. - Use stool softeners like Colace to keep your stools soft and avoid straining during bowel movements. - Avoid prolonged sitting, including on the toilet. - Use SIDS baths and Tucks pads as needed for comfort. - You may use hydrocortisone cream for up to 7-10 days if needed, but avoid prolonged use. Lidocaine can also be used for temporary relief if symptoms worsen. - If you notice increased swelling, bleeding, or pain, please contact us immediately. It is important to be seen within 72 hours if another I&D is needed. We discussed long-term management of your hemorrhoids: - Hemorrhoids are common, and yours are more pronounced due to -related pressure. After , if the hemorrhoids become bothersome or cause bleeding, we can discuss a referral to a colorectal surgeon for a hemorrhoidectomy. However, this is a painful procedure and may not be ideal while caring for a . - For now, continue your current management plan, as it is working well. We discussed your : - You are 29 weeks along, and everything is progressing well. Continue your pelvic floor therapy, childcare director, and stretching to prepare physically for delivery. Follow-Up: - You do not need to schedule a follow-up appointment unless symptoms worsen or you feel you need to be seen. If you have any concerns, please message us or call the office. Mandy Caldwell APRN.ALONZO documented in this encounter [facility] 05-23-2025 Note HNO ID: [id number] Author: MANDY CALDWELL APRN.MANUFACTURING OPERATIONS MANAGER Service: ? Author Type: Nurse Practitioner Type: Progress Notes Filed: 05/23/2025 12:41 Note Text: COLORECTAL SURGERY Follow-up May 23, 2025 Chief complaint: Follow up Thrombosed hemorrhoid HPI: The patient is a 25-year-old female who is 29 weeks , presenting for follow-up of a thrombosed hemorrhoid. She was last seen on 05/09, at which time an IANDD was performed. Since then, she reports significant improvement, with resolution of pain and pressure, and no further bleeding since the first week post-procedure. She has been using sitz baths, Tucks pads, and Colace as directed, and notes that the lidocaine ointment provided substantial relief. She is also taking fiber supplements as needed and maintaining good hydration. She denies any fever, chills, or changes in appetite. She is actively preparing for childbirth, including pelvic floor therapy and childcare director. She reports that her hemorrhoidal symptoms are well controlled and no longer interfere with her daily activities. Physical Exam: Sensitive Exam: yes, Participation of a fellow, resident, medical student, or advanced practice provider student in performing the sensitive examination was discussed with the patient or authorized employer relations representative. The patient or authorized employer relations representative has agreed to proceed with the sensitive examination. Ht 157.5 cm (5' 2) Wt 56.7 kg (125 lb) LMP 11/08/2024 (Approximate) BMI 22.86 kg/m? General - awake, alert, no acute distress Abdominal - Soft, non-tender Anorectal: Perianal skin is intact. No erythema, induration or excoriation. No fissure, fistula. Small external hemorrhoid noted. Soft non-thrombosed. Assessment AND Diagnosis: 1. Hemorrhoid thrombosis (K64.5) 2. Constipation during in first trimester ([facility]) (O99.611) Thrombosed hemorrhoid previously incised and drained on May 09, with significant improvement noted. No current pain or bleeding; area is soft and reduced in size. Patient is 29 weeks and continues to use sitz baths, Tucks pads, Colace, fiber supplements, and maintains adequate hydration. - Continue current management: sitz baths, Tucks pads, Colace, fiber supplements, and adequate hydration. - Advised to avoid prolonged sitting, minimize time on the toilet, and avoid straining during bowel movements. - May use hydrocortisone cream for up to 7-10 days if needed; lidocaine may be used for symptomatic relief as needed. - Instructed to return promptly if hemorrhoids become more engorged or symptomatic, ideally within 72 hours for possible repeat IANDD. - Discussed potential for hemorrhoidectomy with colorectal surgery after if symptoms persist or worsen; reviewed that this is a painful procedure and may not be ideal while caring for a . - No routine follow-up scheduled; patient to return as needed. Data Reviewed: Tests AND Documents Reviewed/ordered: Review of prior notes from 05/09/2025 Treatment plan: - Continue current management: sitz baths, Tucks pads, Colace, fiber supplements, and adequate hydration. - Advised to avoid prolonged sitting, minimize time on the toilet, and avoid straining during bowel movements. - May use hydrocortisone cream for up to 7-10 days if needed; lidocaine may be used for symptomatic relief as needed. - Instructed to return promptly if hemorrhoids become more engorged or symptomatic, ideally within 72 hours for possible repeat IANDD. - Discussed potential for hemorrhoidectomy with colorectal surgery after if symptoms persist or worsen; reviewed that this is a painful procedure and may not be ideal while caring for a . - No routine follow-up scheduled; patient to return as needed. Risk of morbidity, mortality and/or complications of treatment plan: stephy Caldwell APRN.[facility] 05-23-2025 History of Present illness Narrative COLORECTAL SURGERY Follow-up May 23, 2025 Chief complaint: Follow up Thrombosed hemorrhoid HPI: The patient is a 25-year-old female who is 29 weeks , presenting for follow-up of a thrombosed hemorrhoid. She was last seen on 05/09, at which time an I&D was performed. Since then, she reports significant improvement, with resolution of pain and pressure, and no further bleeding since the first week post-procedure. She has been using sitz baths, Tucks pads, and Colace as directed, and notes that the lidocaine ointment provided substantial relief. She is also taking fiber supplements as needed and maintaining good hydration. She denies any fever, chills, or changes in appetite. She is actively preparing for childbirth, including pelvic floor therapy and childcare director. She reports that her hemorrhoidal symptoms are well controlled and no longer interfere with her daily activities. Physical Exam: Sensitive Exam: yes, Participation of a fellow, resident, medical student, or advanced practice provider student in performing the sensitive examination was discussed with the patient or authorized employer relations representative. The patient or authorized employer relations representative has agreed to proceed with the sensitive examination. Ht 157.5 cm (5' 2) Wt 56.7 kg (125 lb) LMP 11/08/2024 (Approximate) BMI 22.86 kg/m General - awake, alert, no acute distress Abdominal - Soft, non-tender Anorectal: Perianal skin is intact. No erythema, induration or excoriation. No fissure, fistula. Small external hemorrhoid noted. Soft non-thrombosed. Assessment & Diagnosis: 1. Hemorrhoid thrombosis (K64.5) 2. Constipation during in first trimester ([facility]) (O99.611) Thrombosed hemorrhoid previously incised and drained on May 09, with significant improvement noted. No current pain or bleeding; area is soft and reduced in size. Patient is 29 weeks and continues to use sitz baths, Tucks pads, Colace, fiber supplements, and maintains adequate hydration. - Continue current management: sitz baths, Tucks pads, Colace, fiber supplements, and adequate hydration. - Advised to avoid prolonged sitting, minimize time on the toilet, and avoid straining during bowel movements. - May use hydrocortisone cream for up to 7-10 days if needed; lidocaine may be used for symptomatic relief as needed. - Instructed to return promptly if hemorrhoids become more engorged or symptomatic, ideally within 72 hours for possible repeat I&D. - Discussed potential for hemorrhoidectomy with colorectal surgery after if symptoms persist or worsen; reviewed that this is a painful procedure and may not be ideal while caring for a . - No routine follow-up scheduled; patient to return as needed. Data Reviewed: Tests & Documents Reviewed/ordered: Review of prior notes from 05/09/2025 Treatment plan: - Continue current management: sitz baths, Tucks pads, Colace, fiber supplements, and adequate hydration. - Advised to avoid prolonged sitting, minimize time on the toilet, and avoid straining during bowel movements. - May use hydrocortisone cream for up to 7-10 days if needed; lidocaine may be used for symptomatic relief as needed. - Instructed to return promptly if hemorrhoids become more engorged or symptomatic, ideally within 72 hours for possible repeat I&D. - Discussed potential for hemorrhoidectomy with colorectal surgery after if symptoms persist or worsen; reviewed that this is a painful procedure and may not be ideal while caring for a . - No routine follow-up scheduled; patient to return as needed. Risk of morbidity, mortality and/or complications of treatment plan: stephy Caldwell APRN.MANUFACTURING OPERATIONS MANAGER documented in this encounter [facility] 05-18-2025 Progress note Formatting of t his note might be different from the original. Centering Group #8, Session #2 KRISTA-S: Renetta Kaufman is a 24 year old female who presents at 28w1d with KELLI:08/09/2025, by Ultrasound for a routine visit. Denies headache, visual changes, chest pain, shortness of breath, vaginal bleeding, leakage of fluid, or dysuria. Had surgical intervention for hemorrhoid, feeling better. O: See flow sheet Gen: No apparent distress Abd: Gravid, nontender VE:small amount of yellow vaginal discharge, no odor SENSITIVE EXAMINATION CONSENT: The sensitive examination was discussed with the Patient or Patient's Authorized Upward Bound Director. As applicable, any other physician, advance practice provider, medical student, or other health professional student that will be observing or involved in the sensitive examination for educational or training purposes was discussed with the Patient or Authorized Upward Bound Director. The Patient or Authorized Upward Bound Director has agreed to proceed with the sensitive examination. ASSESSMENT/PLAN: 1. Encounter for supervision of normal first in second trimester -Continue PNV and ASA -Anatomy US reviewed 2. 28 weeks gestation of 1hr GCT, CBC, and RPR normal Tdap today 3. Depression with anxiety -Continue Zoloft 100mg PO once daily 4. Vaginal itching -BV and yeast today PTL precautions reviewed and when to call RTO in 2 weeks Melody Sauer APRN.CNM [facility] 05-18-2025 Miscellaneous Notes Centering Group #8, Session #2 KRISTA-S: Renetta Kaufman is a 24 year old female who presents at 28w1d with KELLI:08/09/2025, by Ultrasound for a routine visit. Denies headache, visual changes, chest pain, shortness of breath, vaginal bleeding, leakage of fluid, or dysuria. Had surgical intervention for hemorrhoid, feeling better. O: See flow sheet Gen: No apparent distress Abd: Gravid, nontender VE:small amount of yellow vaginal discharge, no odor SENSITIVE EXAMINATION CONSENT: The sensitive examination was discussed with the Patient or Patient's Authorized Upward Bound Director. As applicable, any other physician, advance practice provider, medical student, or other health professional student that will be observing or involved in the sensitive examination for educational or training purposes was discussed with the Patient or Authorized Upward Bound Director. The Patient or Authorized Upward Bound Director has agreed to proceed with the sensitive examination. ASSESSMENT/PLAN: 1. Encounter for supervision of normal first in second trimester -Continue PNV and ASA -Anatomy US reviewed 2. 28 weeks gestation of 1hr GCT, CBC, and RPR normal Tdap today 3. Depression with anxiety -Continue Zoloft 100mg PO once daily 4. Vaginal itching -BV and yeast today PTL precautions reviewed and when to call RTO in 2 weeks Melody Sauer APRN.CNM documented in this encounter [facility] 05-18-2025 Note HNO ID: [id number] Author: LUZ ELENA COLBERT MA Service: ? Author Type: Physician Coding Specialist Type: Progress Notes Filed: 05/18/2025 17:19 Note Text: Technical Support Consultant offered: Patient declines. [facility] 05-18-2025 History of Present illness Narrative Technical Support Consultant offered: Patient declines. documented in this encounter [facility] 05-17-2025 History of Present illness Narrative Program_ID:[id number] Access Code: [email or web address] URL: [email or web address] Date: 05-17-2025 Prepared By: Dannielle Almaraz Program Notes Exercises - Doorway Pec Stretch at 60 Elevation - 1 x daily - 7 x weekly - 3 sets - reps - Sidelying Thoracic Rotation with Open Book - 1 x daily - 7 x weekly - 3 sets - 10 reps - Seated Lateral Pelvic Tilt on [place] Ball - 1 x daily - 7 x weekly - 3 sets - 10 reps - Seated Lateral Trunk Stretch on [place] Ball - 1 x daily - 7 x weekly - 3 sets - 10 reps - Seated Hip Adductor Stretch on [place] Ball - 1 x daily - 7 x weekly - 3 sets - 10 reps - Seated Hip Flexor Stretch on [place] Ball - 1 x daily - 7 x weekly - 3 sets - 10 reps - Deep Squat with Pelvic Floor Relaxation - 1 x daily - x weekly - 3 sets - reps - Seated Table Piriformis Stretch - 1 x daily - x weekly - 3 sets - reps - Supine Hip Internal and External Rotation - 1 x daily - x weekly - 3 sets - reps Patient Education - cc PFPT for - cc General Exercise in - cc Stretching - cc Safe and Effective Body Mechanics - cc Labor Positions and Comfort Strategies - cc Pelvic Floor Bowel Retraining Program Images from the original note were not included. Episode Visit Count: 5 Therapist That Will Accept/Oversee The Plan Of Care: Dannielle Almaraz PT, DPT Start of Care Date: 03/09/25 Onset Date: 01/27/25 Plan of Care Certification Date: 03/09/25 Next Certification Due Date: 06/07/25 Patient Identified by Name and Date of : Yes REHABILITATION AND SPORTS THERAPY PHYSICAL THERAPY PROGRESS REPORT PLAN OF CARE UPDATE: Assessment: Renetta Kaufman demonstrates improvements in bowel function, diaphragmatic breathing, pelvic pain. The patient has progressed toward goals. Patient continues to present with impairments in slight difficulty with pelvic floor lengthening. The patient will benefit from continued skilled therapy services to meet the updated goals for this plan of care as noted below. Goals for Episode of Care: established 03/09/25 , updated on 04/13/2025, 05/17/25 Patient demonstrates independence and compliance with home exercise program.-PROGRESSING Patient displays improved range of motion, coordination, and muscle dynamics of pelvic floor as evidenced by the ability to lengthen without paradoxical contraction at least 90% of the time to normalize bladder/bowel function; reduce pelvic pain.- PROGRESSING Patient reports increased ability to fully empty bladder/bowels at least 90% of the time to normalize bladder/bowel function. - MET Patient reports increased water intake to >60 ounces/day to promote bladder and bowel health.- MET Patient demonstrates ability to perform diaphragmatic breathing and relaxation practice independently to allow for decreased muscle tightness, decreased pain, and improved bladder/bowel function. - MET Patient will report decreased pain rating by 2 points to meet minimal clinical important difference for numeric pain rating scale. - MET Patient Goals: healthy , improve bowel emptying Planned Interventions, Frequency, and Duration: 1x every other week, 4 weeks (reassess at 4 weeks and progress as indicated) Total Number of Visits Planned: 2 Patient to be seen for Therapeutic exercise (09404), Neuromuscular re-education (65297), Manual therapy (22637), Therapeutic activities (33729), Self-group home management (02776), Patient/Family/Caregiver Education, Body Mechanics Training PLAN FOR NEXT VISIT: continue manual work PRN, consider reviewing perineal massage and proper pushing for delivery SUBJECTIVE: 28w0d gestation. Pt reports getting hemorrhoids surgically removed since last visit, states she now feels so much better. Pt reports now being able to empty bowels without straining. Pain: Pain Pain Level: 3 Pain Location: Hip - Left Description: Tightness Frequency: Intermittent Post Treatment Pain Post Treatment Pain Level: 2 PROMIS Scales 05/16/2025 04/13/2025 03/09/2025 Higher is Better Self-Eff Symptom - T Score 39 (Low) 44 (Average) 37 (Low) Self-Eff Symptom - Percentile 14 27 10 05/16/2025 04/13/2025 03/09/2025 Lower is Better Pain Interference - T Score 59 (mild) 60 (mild) 58 (mild) Pain Interference - Percentile 18 16 21 T-Score and Percentile Interpretation T-scores: mean of general population = 50. 5 points is clinically meaningfully difference Percentiles provide an indication of how the patient's score ranks in relation to the general population. Higher percentile rankings indicate better function/quality of life. 50th percentile is the average of the general population and indicates half of respondents had a worse score. OBJECTIVE MEASURES WITH LEVEL OF FUNCTION: Pelvic Floor Difficulty evacuating / Excessive Straining: No Incomplete emptying: No Bowel Movement Frequency: 1x/day Bowel Movement Consistency (Wishon) : 4: Like a sausage or snake, smooth and soft, 5: Soft blobs with clear cut edges Pelvic Floor Muscle Assessment Consent for pelvic assessment/testing and treatment: Patient was educated regarding pelvic floor physical therapy assessment/treatment which may include pelvic floor and girdle muscle assessment externally or internally (vaginal or rectal approach)., Patient verbalized consent for the above treatment approaches today. Patient understands they have control of the treatment and an opportunity to stop treatment at any time. (external palpation) Pelvic Floor Muscle Assessment: Muscle Dynamics (assessed externally over clothing) Ability to Lengthen pelvic floor: Difficulty at first, but improves with cueing and practice Diaphragmatic Breathing : Good Pelvic Floor Manual Assessment External Pelvic Region Tenderness/ Hyperactivity - Lower Extremity: Glut medius Glut medius: Left (2/2) Tissue Restriction/Tenderness Scale: 0= normal, 1= mild, 2= moderate, 3= severe TREATMENT: Therapeutic Exercise: 1: table piriformis stretch, [id number] each 2: *seated hip IR/ER stretch, [id number] Skilled Intervention: Patient was educated in proper exercise technique and purpose for exercises. Skilled judgment was used in selection of appropriate interventions. Manual Therapy: 1: Reassessment 2: MFR to L gluteals, sidelying Skilled Intervention: Manual skills to improve joint mobility, ROM, and decrease pain. Utilized anatomy knowledge of the clinician, and assessment of patient's response to intervention. Billing Therapeutic Exercise Treatment Minutes: 16 Manual TherapyTreatment Minutes: 23 Skilled Treatment Time Minutes (timed and untimed codes): 39 Total Session Time (minutes): 39 Session Start Time : 1100 Session Stop Time : 1139 Crescencio Ziegler PT documented in this encounter [facility] 05-17-2025 Note HNO ID: [id number] Author: CRESCENCIO MOLINA PT Service: ? Author Type: Physical Therapist Type: Progress Notes Filed: 05/17/2025 11:42 Note Text: Episode Visit Count: 5 Therapist That Will Accept/Oversee The Plan Of Care: Dannielle Almaraz PT, DPT Start of Care Date: 03/09/25 Onset Date: 01/27/25 Plan of Care Certification Date: 03/09/25 Next Certification Due Date: 06/07/25 Patient Identified by Name and Date of : Yes REHABILITATION AND SPORTS THERAPY PHYSICAL THERAPY PROGRESS REPORT PLAN OF CARE UPDATE: Assessment: Renetta Kaufman demonstrates improvements in bowel function, diaphragmatic breathing, pelvic pain. The patient has progressed toward goals. Patient continues to present with impairments in slight difficulty with pelvic floor lengthening. The patient will benefit from continued skilled therapy services to meet the updated goals for this plan of care as noted below. Goals for Episode of Care: established 03/09/25 , updated on 04/13/2025, 05/17/25 Patient demonstrates independence and compliance with home exercise program.-PROGRESSING Patient displays improved range of motion, coordination, and muscle dynamics of pelvic floor as evidenced by the ability to lengthen without paradoxical contraction at least 90% of the time to normalize bladder/bowel function; reduce pelvic pain.- PROGRESSING Patient reports increased ability to fully empty bladder/bowels at least 90% of the time to normalize bladder/bowel function. - MET Patient reports increased water intake to >60 ounces/day to promote bladder and bowel health.- MET Patient demonstrates ability to perform diaphragmatic breathing and relaxation practice independently to allow for decreased muscle tightness, decreased pain, and improved bladder/bowel function. - MET Patient will report decreased pain rating by 2 points to meet minimal clinical important difference for numeric pain rating scale. - MET Patient Goals: healthy , improve bowel emptying Planned Interventions, Frequency, and Duration: 1x every other week, 4 weeks (reassess at 4 weeks and progress as indicated) Total Number of Visits Planned: 2 Patient to be seen for Therapeutic exercise (36559), Neuromuscular re-education (09054), Manual therapy (26116), Therapeutic activities (78605), Self-group home management (18030), Patient/Family/Caregiver Education, Body Mechanics Training PLAN FOR NEXT VISIT: continue manual work PRN, consider reviewing perineal massage and proper pushing for delivery SUBJECTIVE: 28w0d gestation. Pt reports getting hemorrhoids surgically removed since last visit, states she now feels so much better. Pt reports now being able to empty bowels without straining. Pain: Pain Pain Level: 3 Pain Location: Hip - Left Description: Tightness Frequency: Intermittent Post Treatment Pain Post Treatment Pain Level: 2 PROMIS Scales 05/16/2025 04/13/2025 03/09/2025 Higher is Better Self-Eff Symptom - T Score 39 (Low) 44 (Average) 37 (Low) Self-Eff Symptom - Percentile 14 27 10 05/16/2025 04/13/2025 03/09/2025 Lower is Better Pain Interference - T Score 59 (mild) 60 (mild) 58 (mild) Pain Interference - Percentile 18 16 21 T-Score and Percentile Interpretation T-scores: mean of general population = 50. 5 points is clinically meaningfully difference Percentiles provide an indication of how the patient's score ranks in relation to the general population. Higher percentile rankings indicate better function/quality of life. 50th percentile is the average of the general population and indicates half of respondents had a worse score. OBJECTIVE MEASURES WITH LEVEL OF FUNCTION: Pelvic Floor Difficulty evacuating / Excessive Straining: No Incomplete emptying: No Bowel Movement Frequency: 1x/day Bowel Movement Consistency (Wishon) : 4: Like a sausage or snake, smooth and soft, 5: Soft blobs with clear cut edges Pelvic Floor Muscle Assessment Consent for pelvic assessment/testing and treatment: Patient was educated regarding pelvic floor physical therapy assessment/treatment which may include pelvic floor and girdle muscle assessment externally or internally (vaginal or rectal approach)., Patient verbalized consent for the above treatment approaches today. Patient understands they have control of the treatment and an opportunity to stop treatment at any time. (external palpation) Pelvic Floor Muscle Assessment: Muscle Dynamics (assessed externally over clothing) Ability to Lengthen pelvic floor: Difficulty at first, but improves with cueing and practice Diaphragmatic Breathing : Good Pelvic Floor Manual Assessment External Pelvic Region Tenderness/ Hyperactivity - Lower Extremity: Glut medius Glut medius: Left (2/2) Tissue Restriction/Tenderness Scale: 0= normal, 1= mild, 2= moderate, 3= severe TREATMENT: Therapeutic Exercise: 1: table piriformis stretch, [id number] each 2: *seated hip IR/E (more content not included)... [facility] 05-09-2025 Instructions Mandy Caldwell APRN.ALONZO - 05/09/2025 5:11 PM EDT We discussed your thrombosed hemorrhoid: - I performed an incision and drainage (I&D) procedure to relieve the pressure and remove clots. This should help reduce your pain and discomfort. - Continue using hydrocortisone cream for one more week to help shrink the tissue. Do not use it beyond this time, as prolonged use of steroids is not recommended. - Use the lidocaine gel I provided for pain relief as needed. Apply a small amount with a gloved finger to the affected area when you start to feel pain. - Continue taking sitz baths to keep the area clean and reduce swelling. Use your bidet to maintain hygiene, and ensure the area is kept clean and dry. - Avoid prolonged sitting, and wear loose-fitting, cotton underwear to reduce irritation. - Continue your current bowel regimen, including stool softeners, high-fiber foods, and adequate water intake, to prevent constipation and straining during bowel movements. - Avoid sitting on the toilet for extended periods. Leave your phone outside the bathroom to minimize time spent sitting. We discussed signs of potential complications: - Watch for increased pain, swelling, drainage, or signs of infection (e.g., redness, warmth, or foul-smelling discharge). If you notice any of these symptoms, please send me a message on Patient Feed or call the office immediately. Follow-up: - Please schedule a follow-up appointment in 2 weeks to assess your progress and ensure the area is healing properly. If you have any concerns or questions before your follow-up, please reach out through Patient Feed. Mandy Caldwell APRN.ALONZO documented in this encounter [facility] 05-09-2025 History and physical note COLORECTAL SURGERY New Patient Visit May 09, 2025 Chief Complaint: thrombosed Hemorrhoid History of Present Illness: Renetta Kaufman is a 25 year old year old female with irritable bowel syndrome with constipation (IBS-C), currently 26 weeks and 5 days , presenting for evaluation and management of a painful external hemorrhoid. She reports that the hemorrhoids has been present for approximately one month, but over the past week, the pain has significantly worsened and the hemorrhoid has not responded to her usual home remedies. Three days prior to the visit, she noticed blood on her Tux pads during changes. She describes the pain as pretty bad and states that despite her efforts, the hemorrhoid has not shrunk in the past week. She denies any prior history of hemorrhoids before . Her bowel function has improved during , which she attributes to daily use of stool softeners, increased fiber intake (including fiber supplements and kiwis), increased water consumption, and regular pelvic floor physical therapy. Currently, she has bowel movements approximately every two days. She reports being consistent with her bowel regimen, taking stool softeners nightly along with her vitamins. She also uses a bidet and a squatty potty at home. For the hemorrhoid, she has been using multiple home remedies including sitz baths, witch paulette pads, ice application, minimizing prolonged sitting or standing, and spending most of her time lying down. She has also used topical hydrocortisone cream and a stronger version with lidocaine as prescribed by her OB, but reports no significant improvement. She expresses frustration with persistent symptoms despite following all recommended conservative measures and having seen four different providers who advised similar management. 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 She recently moved from [place] to [place] and notes that her IBS symptoms have improved since relocating, which she attributes to reduced stress and anxiety. She recently passed her gestational diabetes glucose test. She is not currently working but remains physically active through her physical therapy regimen and caring for her dog. Current medications include daily stool softeners, vitamins, topical hydrocortisone cream (used for a couple of weeks), and lidocaine cream. She denies any other significant medical history. Diagnostics: Gestational diabetes glucose test: Normal . PAST MEDICAL HISTORY Diagnosis Date Anxiety Depression Migraine headache PAST SURGICAL HISTORY Procedure Laterality Date PAST SURGICAL HISTORY OF wisdom teeth Current Outpatient Medications Medication Sig Dispense Refill Lidocaine-Hydrocortisone Ac 3-0.5 % crea by RECTAL route four times a day as needed. 7 g 3 hydrocortisone (ANUSOL-HC) 2.5 % rectal cream by RECTAL route two times a day. 28 g 1 sertraline (ZOLOFT) 100 mg tablet Take 1 tablet by mouth once daily. 90 tablet 2 aspirin, enteric coated (ECOTRIN LOW STRENGTH) 81 mg EC tablet Take 1 tablet by mouth once daily. 90 tablet 3 no115/iron/folic acid ( 19 ORAL) Take by mouth. No current facility-administered medications for this visit. ALLERGIES No Known Allergies Review of Systems / PACC screen: Do you have difficulty climbing a full flight of stairs without feeling short of breath? no Do you require oxygen for your breathing or have your gone to an emergency department because of breathing problems? no Are you on dialysis or have you been told that your kidneys do not work well as they should? no Do have an implanted cardiac device (pacemaker, defibrillator etc.) that has not been checked in the last 6 months? no Have you had an organ transplant? no Have you been told that you had excessive bleeding during surgical procedures or do you take blood thinning medications other than aspirin? no Have you ever had a heart attack, heart stents/surgery, valve problems, or other heart problems? no Have you had a stroke, seizures, or unexplained loss of consciousness? no Do you have a neurologic condition like Parkinson's disease or multiple sclerosis? no Have you or a blood relative had a life-threatening reaction to anesthesia? no Do you have cirrhosis of the liver or other liver disease? no Have you had a blood clot within the past year? no Do you take insulin or other injections for diabetes? no Do you have sleep apnea or have you been told you may have sleep apnea? no Do you have other implanted devices (deep brain stimulator, spinal cord stimulator, etc.)? no Physical Exam: Sensitive Exam: yes, Participation of a fellow, resident, medical student, or advanced practice provider student in performing the sensitive examination was discussed with the patient or authorized employer relations representative. The patient or authorized employer relations representative has agreed to proceed with the sensitive examination. BP 94/58 (BP Site: Right Arm, BP Position: Sitting) Pulse 65 Temp 36.1 C (96.9 F) (Temporal) Ht 160 cm (5' 3) Wt 56.2 kg (124 lb) LMP 11/08/2024 (Approximate) SpO2 97% BMI 21.97 kg/m General Appearance: Well appearing, alert, in no acute distress, well-hydrated, well nourished. Lungs: Lungs clear to auscultation. No wheezing, rhonchi, rales. Heart: Not examined Edema: no Abdomen: 27 weeks OB Anorectal: Perianal skin is intact. Cluster of hemorrhoids noted. Left lateral area purple and thrombosed.Increase pain on assessment. Area hard and firm. Date: May 09, 2025 Operation: Incision external hemorrhoid Pre-operative diagnosis: external thrombosed hemorrhoid Post-operative diagnosis: external thrombosed hemorrhoid Anesthesia: 1% lidocaine with 1:100,000 epinephrine. Indications: The patient presented with an external thrombosed hemorrhoid causing severe pain without relief with conservative therapy. INFORMED CONSENT Renetta Mandeep Medical Record: [id number] Procedure: Excision external thrombosed hemorrhoid The risks, benefits and anticipated outcomes of the procedure, the risks and benefits of the alternatives to the procedure and the roles and tasks of the personnel to be involved were discussed with the patient and the patient consents to the procedure and agrees to proceed. I verify that I personally obtained Renetta Mandeep's consent. Mandy Caldwell APRN.MANUFACTURING OPERATIONS MANAGER May 09, 2025 5:07 PM Dept of COLORECTAL SURGERY UNIVERSAL PROTOCOL / SAFETY CHECKLIST Procedure to be Performed: I & D thrombosed hemorroid Sign In: A Moment of CARE was completed. Appropriate PPE (Personal Protective Equipment) worn by all providers involved with the procedure. Special equipment not required. Patient/Surrogate Stated/Verified: Patient name, Date of , Relevant allergies, and The intended procedure Time Out: Relevant labs, photos, and/or imaging studies have been reviewed. Intended patient and procedure match the source document(s) (e.g. consent, H&P, associated studies [imaging, pathology]) match the intended patient and procedure. Consent obtained and matches the intended procedure. Yes. Correct side/site is not applicable. Medications required for this procedure are verified. Fire risk assessed and is not applicable. Implants: are not applicable. Sign Out: Specimens not collected. All instruments, equipment, possible retained foreign bodies are accounted for. Yes. The post-procedure plan of care has been communicated to the patient or surrogate. Findings: A 2 cm external hemorrhoid with clot evacuated. No purulent drainage. Procedure: The risks, benefits and anticipated outcomes of the procedure, the risks and benefits of the alternatives to the procedure, and the roles and tasks of the personnel to be involved were discussed with the patient and the patient consents to the procedure. Following a procedure time-out, the perineal skin was cleansed with a dilute solution of betadine. The surface of the external thrombsed hemorrhoid was infiltrated with 3 mL of 1% lidocaine with 1:100,000 epinephrine. An incision was made with the 10# scalpel and clot was evacuated. Hemostasis achieved with pressure. Monitored for bleeding for 15 min, and no immediate post op bleeding present. Pt denies dizziness and faintness. Drains: NO Specimen: NO Complications: NO Culture: NO The patient was discharged when comfortable with instructions as to outcome, complications, and follow-up. Mandy Caldwell APRN.[facility] Dept of COLORECTAL SURGERY May 09, 2025 5:07 PM Assessment & Diagnosis: 1. Constipation during in first trimester (HCC) (O99.611) Patient is currently 27 weeks and has a history of constipation, which has improved with increased fiber intake, stool softeners, and hydration. - Continue current bowel regimen including stool softeners and high-fiber diet. - Avoid prolonged sitting on the toilet. 2. Hemorrhoid thrombosis (K64.5) External hemorrhoid thrombosis present for approximately one week, with associated pain and bleeding. Patient has been using sitz baths, witch paulette pads, ice, and topical treatments including hydrocortisone and lidocaine without significant improvement. - Performed incision and drainage of the thrombosed hemorrhoid to relieve pressure. - Prescribed lidocaine gel for topical application to manage pain. - Continue use of hydrocortisone cream for one more week to reduce swelling. - Maintain hygiene with sitz baths and use of a bidet. - Avoid prolonged sitting and wear loose-fitting cotton underwear. - Monitor for signs of infection or worsening symptoms. - Follow-up in two weeks to assess healing and progress. 3. Irritable bowel syndrome with constipation (K58.1) Chronic condition managed with dietary modifications and stool softeners. Symptoms have improved since moving to a less stressful environment. - Continue current management with dietary modifications and stool softeners. - Monitor bowel movements to ensure regularity. Data Reviewed: Tests & Documents Reviewed/ordered: None Treatment plan: - Continue current bowel regimen including stool softeners and high-fiber diet. - Avoid prolonged sitting on the toilet. - Prescribed lidocaine gel for topical application to manage pain. - Continue use of hydrocortisone cream for one more week to reduce swelling. - Maintain hygiene with sitz baths and use of a bidet. - Avoid prolonged sitting and wear loose-fitting cotton underwear. - Monitor for signs of infection or worsening symptoms. - Follow-up in two weeks to assess healing and progress. Colorectal Surgery Risk of morbidity, mortality and/or complications of treatment plan: stephy Caldwell APRN.MANUFACTURING OPERATIONS MANAGER [facility] 05-09-2025 History and physical note COLORECTAL SURGERY New Patient Visit May 09, 2025 Chief Complaint: thrombosed Hemorrhoid History of Present Illness: Renetta Kaufman is a 25 year old year old female with irritable bowel syndrome with constipation (IBS-C), currently 26 weeks and 5 days , presenting for evaluation and management of a painful external hemorrhoid. She reports that the hemorrhoids has been present for approximately one month, but over the past week, the pain has significantly worsened and the hemorrhoid has not responded to her usual home remedies. Three days prior to the visit, she noticed blood on her Tux pads during changes. She describes the pain as pretty bad and states that despite her efforts, the hemorrhoid has not shrunk in the past week. She denies any prior history of hemorrhoids before . Her bowel function has improved during , which she attributes to daily use of stool softeners, increased fiber intake (including fiber supplements and kiwis), increased water consumption, and regular pelvic floor physical therapy. Currently, she has bowel movements approximately every two days. She reports being consistent with her bowel regimen, taking stool softeners nightly along with her vitamins. She also uses a bidet and a squatty potty at home. For the hemorrhoid, she has been using multiple home remedies including sitz baths, witch paulette pads, ice application, minimizing prolonged sitting or standing, and spending most of her time lying down. She has also used topical hydrocortisone cream and a stronger version with lidocaine as prescribed by her OB, but reports no significant improvement. She expresses frustration with persistent symptoms despite following all recommended conservative measures and having seen four different providers who advised similar management. 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 She recently moved from [place] to [place] and notes that her IBS symptoms have improved since relocating, which she attributes to reduced stress and anxiety. She recently passed her gestational diabetes glucose test. She is not currently working but remains physically active through her physical therapy regimen and caring for her dog. Current medications include daily stool softeners, vitamins, topical hydrocortisone cream (used for a couple of weeks), and lidocaine cream. She denies any other significant medical history. Diagnostics: Gestational diabetes glucose test: Normal . PAST MEDICAL HISTORY Diagnosis Date Anxiety Depression Migraine headache PAST SURGICAL HISTORY Procedure Laterality Date PAST SURGICAL HISTORY OF wisdom teeth Current Outpatient Medications Medication Sig Dispense Refill Lidocaine-Hydrocortisone Ac 3-0.5 % crea by RECTAL route four times a day as needed. 7 g 3 hydrocortisone (ANUSOL-HC) 2.5 % rectal cream by RECTAL route two times a day. 28 g 1 sertraline (ZOLOFT) 100 mg tablet Take 1 tablet by mouth once daily. 90 tablet 2 aspirin, enteric coated (ECOTRIN LOW STRENGTH) 81 mg EC tablet Take 1 tablet by mouth once daily. 90 tablet 3 no115/iron/folic acid ( 19 ORAL) Take by mouth. No current facility-administered medications for this visit. ALLERGIES No Known Allergies Review of Systems / PACC screen: Do you have difficulty climbing a full flight of stairs without feeling short of breath? no Do you require oxygen for your breathing or have your gone to an emergency department because of breathing problems? no Are you on dialysis or have you been told that your kidneys do not work well as they should? no Do have an implanted cardiac device (pacemaker, defibrillator etc.) that has not been checked in the last 6 months? no Have you had an organ transplant? no Have you been told that you had excessive bleeding during surgical procedures or do you take blood thinning medications other than aspirin? no Have you ever had a heart attack, heart stents/surgery, valve problems, or other heart problems? no Have you had a stroke, seizures, or unexplained loss of consciousness? no Do you have a neurologic condition like Parkinson's disease or multiple sclerosis? no Have you or a blood relative had a life-threatening reaction to anesthesia? no Do you have cirrhosis of the liver or other liver disease? no Have you had a blood clot within the past year? no Do you take insulin or other injections for diabetes? no Do you have sleep apnea or have you been told you may have sleep apnea? no Do you have other implanted devices (deep brain stimulator, spinal cord stimulator, etc.)? no Physical Exam: Sensitive Exam: yes, Participation of a fellow, resident, medical student, or advanced practice provider student in performing the sensitive examination was discussed with the patient or authorized employer relations representative. The patient or authorized employer relations representative has agreed to proceed with the sensitive examination. BP 94/58 (BP Site: Right Arm, BP Position: Sitting) Pulse 65 Temp 36.1 C (96.9 F) (Temporal) Ht 160 cm (5' 3) Wt 56.2 kg (124 lb) LMP 11/08/2024 (Approximate) SpO2 97% BMI 21.97 kg/m General Appearance: Well appearing, alert, in no acute distress, well-hydrated, well nourished. Lungs: Lungs clear to auscultation. No wheezing, rhonchi, rales. Heart: Not examined Edema: no Abdomen: 27 weeks OB Anorectal: Perianal skin is intact. Cluster of hemorrhoids noted. Left lateral area purple and thrombosed.Increase pain on assessment. Area hard and firm. Date: May 09, 2025 Operation: Incision external hemorrhoid Pre-operative diagnosis: external thrombosed hemorrhoid Post-operative diagnosis: external thrombosed hemorrhoid Anesthesia: 1% lidocaine with 1:100,000 epinephrine. Indications: The patient presented with an external thrombosed hemorrhoid causing severe pain without relief with conservative therapy. INFORMED CONSENT Renetta Kaufman Medical Record: [id number] Procedure: Excision external thrombosed hemorrhoid The risks, benefits and anticipated outcomes of the procedure, the risks and benefits of the alternatives to the procedure and the roles and tasks of the personnel to be involved were discussed with the patient and the patient consents to the procedure and agrees to proceed. I verify that I personally obtained Renetta Kaufman's consent. Mandy Caldwell APRN.CNP May 09, 2025 5:07 PM Dept of COLORECTAL SURGERY UNIVERSAL PROTOCOL / SAFETY CHECKLIST Procedure to be Performed: I & D thrombosed hemorroid Sign In: A Moment of CARE was completed. Appropriate PPE (Personal Protective Equipment) worn by all providers involved with the procedure. Special equipment not required. Patient/Surrogate Stated/Verified: Patient name, Date of , Relevant allergies, and The intended procedure Time Out: Relevant labs, photos, and/or imaging studies have been reviewed. Intended patient and procedure match the source document(s) (e.g. consent, H&P, associated studies [imaging, pathology]) match the intended patient and procedure. Consent obtained and matches the intended procedure. Yes. Correct side/site is not applicable. Medications required for this procedure are verified. Fire risk assessed and is not applicable. Implants: are not applicable. Sign Out: Specimens not collected. All instruments, equipment, possible retained foreign bodies are accounted for. Yes. The post-procedure plan of care has been communicated to the patient or surrogate. Findings: A 2 cm external hemorrhoid with clot evacuated. No purulent drainage. Procedure: The risks, benefits and anticipated outcomes of the procedure, the risks and benefits of the alternatives to the procedure, and the roles and tasks of the personnel to be involved were discussed with the patient and the patient consents to the procedure. Following a procedure time-out, the perineal skin was cleansed with a dilute solution of betadine. The surface of the external thrombsed hemorrhoid was infiltrated with 3 mL of 1% lidocaine with 1:100,000 epinephrine. An incision was made with the 10# scalpel and clot was evacuated. Hemostasis achieved with pressure. Monitored for bleeding for 15 min, and no immediate post op bleeding present. Pt denies dizziness and faintness. Drains: NO Specimen: NO Complications: NO Culture: NO The patient was discharged when comfortable with instructions as to outcome, complications, and follow-up. Mandy Caldwell APRN.[facility] Dept of COLORECTAL SURGERY May 09, 2025 5:07 PM Assessment & Diagnosis: 1. Constipation during in first trimester ([facility]) (O99.611) Patient is currently 27 weeks and has a history of constipation, which has improved with increased fiber intake, stool softeners, and hydration. - Continue current bowel regimen including stool softeners and high-fiber diet. - Avoid prolonged sitting on the toilet. 2. Hemorrhoid thrombosis (K64.5) External hemorrhoid thrombosis present for approximately one week, with associated pain and bleeding. Patient has been using sitz baths, witch paulette pads, ice, and topical treatments including hydrocortisone and lidocaine without significant improvement. - Performed incision and drainage of the thrombosed hemorrhoid to relieve pressure. - Prescribed lidocaine gel for topical application to manage pain. - Continue use of hydrocortisone cream for one more week to reduce swelling. - Maintain hygiene with sitz baths and use of a bidet. - Avoid prolonged sitting and wear loose-fitting cotton underwear. - Monitor for signs of infection or worsening symptoms. - Follow-up in two weeks to assess healing and progress. 3. Irritable bowel syndrome with constipation (K58.1) Chronic condition managed with dietary modifications and stool softeners. Symptoms have improved since moving to a less stressful environment. - Continue current management with dietary modifications and stool softeners. - Monitor bowel movements to ensure regularity. Data Reviewed: Tests & Documents Reviewed/ordered: None Treatment plan: - Continue current bowel regimen including stool softeners and high-fiber diet. - Avoid prolonged sitting on the toilet. - Prescribed lidocaine gel for topical application to manage pain. - Continue use of hydrocortisone cream for one more week to reduce swelling. - Maintain hygiene with sitz baths and use of a bidet. - Avoid prolonged sitting and wear loose-fitting cotton underwear. - Monitor for signs of infection or worsening symptoms. - Follow-up in two weeks to assess healing and progress. Colorectal Surgery Risk of morbidity, mortality and/or complications of treatment plan: stephy Caldwell APRN.[facility] documented in this encounter [facility] 05-06-2025 History of Present illness Narrative Program_ID:[id number] Access Code: [email or web address] URL: [email or web address] Date: 05-06-2025 Prepared By: Dannielle Almaraz Program Notes Exercises - Doorway Pec Stretch at 60 Elevation - 1 x daily - 7 x weekly - 3 sets - reps - Sidelying Thoracic Rotation with Open Book - 1 x daily - 7 x weekly - 3 sets - 10 reps - Seated Lateral Pelvic Tilt on [place] Ball - 1 x daily - 7 x weekly - 3 sets - 10 reps - Seated Lateral Trunk Stretch on [place] Ball - 1 x daily - 7 x weekly - 3 sets - 10 reps - Seated Hip Adductor Stretch on [place] Ball - 1 x daily - 7 x weekly - 3 sets - 10 reps - Seated Hip Flexor Stretch on [place] Ball - 1 x daily - 7 x weekly - 3 sets - 10 reps - Deep Squat with Pelvic Floor Relaxation - 1 x daily - x weekly - 3 sets - reps - Seated Table Piriformis Stretch - 1 x daily - x weekly - 3 sets - reps Patient Education - cc PFPT for - cc General Exercise in - cc Stretching - cc Safe and Effective Body Mechanics - cc Labor Positions and Comfort Strategies - cc Pelvic Floor Bowel Retraining Program Episode Visit Count: 4 Therapist That Will Accept/Oversee The Plan Of Care: Dannielle Almaraz PT, DPT Start of Care Date: 03/09/25 Onset Date: 01/27/25 Plan of Care Certification Date: 03/09/25 Next Certification Due Date: 06/07/25 Patient Identified by Name and Date of : Yes REHABILITATION AND SPORTS THERAPY PHYSICAL THERAPY TREATMENT NOTE ASSESSMENT: Renetta Kaufman tolerated the session with decreased symptoms. She demonstrated difficulty with unchanged bowel function, tolerated stretches and manual therapy well this date. The patient will continue to benefit from ongoing skilled physical therapy to progress toward set goals. PLAN FOR NEXT VISIT: assess response to additional exercises and progress as able, manual work PRN SUBJECTIVE: 26w3d gestation. Pt reports developing hemmorrhoids during . Pt reports taking 2 capsules of Colace a night, which helps slightly. Pt reports wearing a belly band to try to decrease pelvic pressure but feels like she can't get hemmorrhoids to shrink like she used to be able to. Pt reports good compliance with toileting techniques, including using a squatty potty, sitz baths, bidet, etc. Pt reports drinking about 2 liters of water a day. Pt reports good compliance with HEP but unsure if exercises help. Pain: Pain Pain Level: 6 Pain Location: Rectum Description: Burning (discomfort) Frequency: Intermittent Post Treatment Pain Post Treatment Pain Level: Better OBJECTIVE MEASURES WITH LEVEL OF FUNCTION: Pelvic Floor Muscle Assessment Consent for pelvic assessment/testing and treatment: Patient was educated regarding pelvic floor physical therapy assessment/treatment which may include pelvic floor and girdle muscle assessment externally or internally (vaginal or rectal approach)., Patient verbalized consent for the above treatment approaches today. Patient understands they have control of the treatment and an opportunity to stop treatment at any time. Pelvic Floor Manual Assessment External Pelvic Region Tenderness/ Hyperactivity - Trunk: Lumbar Paraspinals Lumbar Paraspinals: Bilateral (1/1) Tissue Restriction/Tenderness Scale: 0= normal, 1= mild, 2= moderate, 3= severe TREATMENT: Therapeutic Exercise: 1: *deep squat stretch with DB, [id number] 2: *table piriformis stretch, [id number] each Skilled Intervention: Patient was educated in proper exercise technique and purpose for exercises. Reviewed and educated patient on additions/changes for home exercise program as above (*). Skilled judgment was used in selection of appropriate interventions. Provided written instruction for home exercise program to facilitate proper performance and compliance. Manual Therapy: 1: MFR to B lumbar paraspinals, sidelying Skilled Intervention: Manual skills to improve joint mobility, ROM, and decrease pain. Utilized anatomy knowledge of the clinician, and assessment of patient's response to intervention. Self-Detention Management: 1: Reviewed benefits of using a donut pillow for prolonged sitting if sitting is not able to be avoided Skilled Intervention: Skilled judgment in the selection of proper modification for activity of daily living/home management based on clinical presentation, deficits, and needs. Billing Therapeutic Exercise Treatment Minutes: 10 Manual TherapyTreatment Minutes: 24 Self-Care/Home Management Treatment Minutes: 5 Skilled Treatment Time Minutes (timed and untimed codes): 39 Total Session Time (minutes): 39 Session Start Time : 1105 Session Stop Time : 1144 Crescencio Ziegler PT documented in this encounter [facility] 05-06-2025 Note HNO ID: [id number] Author: CRESCENCIO MOLINA, PT Service: ? Author Type: Physical Therapist Type: Progress Notes Filed: 05/06/2025 11:50 Note Text: Episode Visit Count: 4 Therapist That Will Accept/Oversee The Plan Of Care: Dannielle Almaraz PT, DPT Start of Care Date: 03/09/25 Onset Date: 01/27/25 Plan of Care Certification Date: 03/09/25 Next Certification Due Date: 06/07/25 Patient Identified by Name and Date of : Yes REHABILITATION AND SPORTS THERAPY PHYSICAL THERAPY TREATMENT NOTE ASSESSMENT: Renetta Kaufman tolerated the session with decreased symptoms. She demonstrated difficulty with unchanged bowel function, tolerated stretches and manual therapy well this date. The patient will continue to benefit from ongoing skilled physical therapy to progress toward set goals. PLAN FOR NEXT VISIT: assess response to additional exercises and progress as able, manual work PRN SUBJECTIVE: 26w3d gestation. Pt reports developing hemmorrhoids during . Pt reports taking 2 capsules of Colace a night, which helps slightly. Pt reports wearing a belly band to try to decrease pelvic pressure but feels like she can't get hemmorrhoids to shrink like she used to be able to. Pt reports good compliance with toileting techniques, including using a squatty potty, sitz baths, bidet, etc. Pt reports drinking about 2 liters of water a day. Pt reports good compliance with HEP but unsure if exercises help. Pain: Pain Pain Level: 6 Pain Location: Rectum Description: Burning (discomfort) Frequency: Intermittent Post Treatment Pain Post Treatment Pain Level: Better OBJECTIVE MEASURES WITH LEVEL OF FUNCTION: Pelvic Floor Muscle Assessment Consent for pelvic assessment/testing and treatment: Patient was educated regarding pelvic floor physical therapy assessment/treatment which may include pelvic floor and girdle muscle assessment externally or internally (vaginal or rectal approach)., Patient verbalized consent for the above treatment approaches today. Patient understands they have control of the treatment and an opportunity to stop treatment at any time. Pelvic Floor Manual Assessment External Pelvic Region Tenderness/ Hyperactivity - Trunk: Lumbar Paraspinals Lumbar Paraspinals: Bilateral (1/1) Tissue Restriction/Tenderness Scale: 0= normal, 1= mild, 2= moderate, 3= severe TREATMENT: Therapeutic Exercise: 1: *deep squat stretch with DB, [id number] 2: *table piriformis stretch, [id number] each Skilled Intervention: Patient was educated in proper exercise technique and purpose for exercises. Reviewed and educated patient on additions/changes for home exercise program as above (*). Skilled judgment was used in selection of appropriate interventions. Provided written instruction for home exercise program to facilitate proper performance and compliance. Manual Therapy: 1: MFR to B lumbar paraspinals, sidelying Skilled Intervention: Manual skills to improve joint mobility, ROM, and decrease pain. Utilized anatomy knowledge of the clinician, and assessment of patient's response to intervention. Self-Detention Management: 1: Reviewed benefits of using a donut pillow for prolonged sitting if sitting is not able to be avoided Skilled Intervention: Skilled judgment in the selection of proper modification for activity of daily living/home management based on clinical presentation, deficits, and needs. Billing Therapeutic Exercise Treatment Minutes: 10 Manual TherapyTreatment Minutes: 24 Self-Care/Home Management Treatment Minutes: 5 Skilled Treatment Time Minutes (timed and untimed codes): 39 Total Session Time (minutes): 39 Session Start Time : 1105 Session Stop Time : 1144 Crescencio Ziegler, PT [facility] 05-05-2025 Progress note Formatting of t his note might be different from the original. S: Renetta Kaufman is a 25 year old female who presents at 26 weeks gestation for a routine visit. Just completed 1 hour GCT. Seen yesterday in office for hemorrhoid. Denies headache, visual changes, chest pain, shortness of breath, vaginal bleeding, leakage of fluid, or dysuria. Increased back, hip and pelvic pain - seeing physical therapy - recommended childcare director. O: See flow sheet Gen: No apparent distress Abd: Gravid, non tender ASSESSMENT/PLAN: 1. Encounter for supervision of normal first in second trimester 2. External hemorrhoids without complication 3. Anal or rectal pain 4. 26 weeks gestation of 5. Screening for diabetes mellitus - 1 hour GCT, CBC, and RPR today - Rh positive -O+ - TDAP - next visit - LARC form reviewed and signed. Patient declines- unsure if wants to use any hormonal control - Depression screen negative - Opioid screen negative - plan form discussed and given to patient. Patient desires spontaneous onset of labor, epidural, and unsure about circumcision - Attending CBE classes next month - PTL precautions and kick counts reviewed - RTO- 2 weeks or sooner if needed Shawna Wilson APRN.CNM [facility] 05-05-2025 Miscellaneous Notes S: Renetta Kaufman is a 25 year old female who presents at 26 weeks gestation for a routine visit. Just completed 1 hour GCT. Seen yesterday in office for hemorrhoid. Denies headache, visual changes, chest pain, shortness of breath, vaginal bleeding, leakage of fluid, or dysuria. Increased back, hip and pelvic pain - seeing physical therapy - recommended childcare director. O: See flow sheet Gen: No apparent distress Abd: Gravid, non tender ASSESSMENT/PLAN: 1. Encounter for supervision of normal first in second trimester 2. External hemorrhoids without complication 3. Anal or rectal pain 4. 26 weeks gestation of 5. Screening for diabetes mellitus - 1 hour GCT, CBC, and RPR today - Rh positive -O+ - TDAP - next visit - LARC form reviewed and signed. Patient declines- unsure if wants to use any hormonal control - Depression screen negative - Opioid screen negative - plan form discussed and given to patient. Patient desires spontaneous onset of labor, epidural, and unsure about circumcision - Attending CBE classes next month - PTL precautions and kick counts reviewed - RTO- 2 weeks or sooner if needed Shawna Wilson APRN.CNM documented in this encounter [facility] 05-05-2025 Instructions Melissa Jesus MA - 05/05/2025 10:25 AM EDT SEQUENTIAL SCREENINGS The [facility] offers sequential screenings for women who are interested in screenings for chromosomal abnormalities and certain defects during a . The sequential screen combines ultrasound and blood tests to determine the risk of chromosomal abnormalities, including Down's Syndrome (Trisomy 21) and Trisomy 18, as well as open neural tube defects including spina bifida. Ultrasound examination is performed between 11 weeks and 13 weeks gestational age. Blood tests are drawn after the ultrasound and again later in the between 15 and 21 weeks gestational age. Please let your physician know if you are interested in this testing. It will require an appointment with our mechanical sound technician. This is not an ultrasound performed by a physician in our office during a routine visit. SIGNS AND SYMPTOMS OF LABOR 1. Contractions every 10 minutes or more often 2. Clear, pink, or brownish fluid (water) leaking from vagina 3. Feeling that baby is pushing down, pressure 4. Low, dull backache 5. Cramps that feel like a period 6. Cramps with or without diarrhea If you notice any of the above symptoms, contact our office at [phone] and ask to speak with a nurse. After hours, you can call doctors registry at [phone] OR call [facility] at [phone] and ask to have the doctor business operations manager paged. If you consider this an emergency, dial 0-1-3 or go to your nearest emergency department. NEED HELP? Are you dealing with a violent or abusive relationship? Are you a victim of rape or sexual assult? Call [facility] [place] ([place]) 24 hour Crisis Hotline: 138.209.6301 or 307-952-5863. MANUAL Your Guide to a Healthy manual is now on-line. Visit [email or web address] to download your free copy documented in this encounter [facility] 05-04-2025 Note HNO ID: [id number] Author: BOUCHRA CARRASCO MD Service: ? Author Type: Physician Type: Progress Notes Filed: 05/04/2025 10:39 Note Text: Renetta Kaufman is a 25 year old female who presents for problem visit for c/o hemorrhoid. HPI: 25 YOF notes hemorrhoids, has been for acouple of months. Has struggled for a few months. Tried sugar, soaks, witch paulette, increasing fiber to control constipation. Not bleeding. Hurts more w/ walking. More burning and sharp than itching. OB History Gravida1 Para0 Term0 Preterm0 AB0 Living0 SAB0 IAB0 Ectopic0 Multiple0 Live Births0 Contract Admin History LMP: 11/08/2024 (Approximate), Age at Menarche: Age at First : Age at Menopause: Contract Admin History Comments: Sexual Activity: Yes; Male Contraception: No contraception data on record PAST MEDICAL HISTORY Diagnosis Date Anxiety Depression Migraine headache PAST SURGICAL HISTORY Procedure Laterality Date PAST SURGICAL HISTORY OF wisdom teeth FAMILY HISTORY Problem Relation Age of Onset other (gestational diabetes) Mother other (brain tumor) Mother benign No Known Problems Father No Known Problems Sister No Known Problems Sister No Known Problems Brother No Known Problems Maternal Grandmother Diabetes Maternal Grandfather Heart Attack Maternal Grandfather Stroke Maternal Grandfather Systemic Lupus Erythematosus Paternal Grandmother No Known Problems Paternal Grandfather Social History Tobacco Use Smoking status: Never Smokeless tobacco: Never Vaping Use Vaping status: Never Used Substance Use Topics Alcohol use: Never Drug use: Not Currently Types: Marijuana Comment: no marijuana use snce 2022 Current Outpatient Medications Medication Sig hydrocortisone (ANUSOL-HC) 2.5 % rectal cream by RECTAL route two times a day. sertraline (ZOLOFT) 100 mg tablet Take 1 tablet by mouth once daily. aspirin, enteric coated (ECOTRIN LOW STRENGTH) 81 mg EC tablet Take 1 tablet by mouth once daily. no115/iron/folic acid ( 19 ORAL) Take by mouth. No current facility-administered medications for this visit. Allergies As of Date: 05/04/2025 (No Known Allergies) Fully Assessed 05/04/2025 Allergies and current medication updated:Yes SENSITIVE EXAM: The sensitive examination was discussed with the Patient or Patient's Authorized Upward Bound Director. As applicable, any other physician, advance practice provider, medical student, or other health professional student that will be observing or involved in the sensitive examination for educational or training purposes was discussed with the Patient or Authorized Upward Bound Director. The Patient or Authorized Upward Bound Director has agreed to proceed with the sensitive examination. (Sensitive examination includes inspection and/or palpation of the breasts, pelvis, prostate and anorectal regions). EXAM: BP 98/58 Wt 123 lb (55.8kg) LMP 11/08/2024 GENERAL: upset, female in no apparent distress PELVIC: external genitalia normal, normal Bartholin's glands, urethra, [place]'s glands, no vulvar lesions, no cervical lesions, good vaginal support, physiologic discharge present, normal appearing perineal body and perianal region, external hemorrhoid 1.5 cm, erythemetous but not thrombosed, tender, fluctuant ASSESSMENT AND PLAN: Assessment AND Plan Anal or rectal pain External hemorrhoids without complication rx sent d/w her keep stools soft, don't strain cont. sitz baths and tucks pads prn if worsens notify office Bouchra Carrasco MD [facility] 05-04-2025 History of Present illness Narrative Renetta Kaufman is a 25 year old female who presents for problem visit for c/o hemorrhoid. HPI: 25 YOF notes hemorrhoids, has been for acouple of months. Has struggled for a few months. Tried sugar, soaks, witch paulette, increasing fiber to control constipation. Not bleeding. Hurts more w/ walking. More burning and sharp than itching. OB History Gravida1 Para0 Term0 Preterm0 AB0 Living0 SAB0 IAB0 Ectopic0 Multiple0 Live Births0 Contract Admin History LMP: 11/08/2024 (Approximate), Age at Menarche: Age at First : Age at Menopause: Contract Admin History Comments: Sexual Activity: Yes; Male Contraception: No contraception data on record PAST MEDICAL HISTORY Diagnosis Date Anxiety Depression Migraine headache PAST SURGICAL HISTORY Procedure Laterality Date PAST SURGICAL HISTORY OF wisdom teeth FAMILY HISTORY Problem Relation Age of Onset other (gestational diabetes) Mother other (brain tumor) Mother benign No Known Problems Father No Known Problems Sister No Known Problems Sister No Known Problems Brother No Known Problems Maternal Grandmother Diabetes Maternal Grandfather Heart Attack Maternal Grandfather Stroke Maternal Grandfather Systemic Lupus Erythematosus Paternal Grandmother No Known Problems Paternal Grandfather Social History Tobacco Use Smoking status: Never Smokeless tobacco: Never Vaping Use Vaping status: Never Used Substance Use Topics Alcohol use: Never Drug use: Not Currently Types: Marijuana Comment: no marijuana use [facility] 2022 Current Outpatient Medications Medication Sig hydrocortisone (ANUSOL-HC) 2.5 % rectal cream by RECTAL route two times a day. sertraline (ZOLOFT) 100 mg tablet Take 1 tablet by mouth once daily. aspirin, enteric coated (ECOTRIN LOW STRENGTH) 81 mg EC tablet Take 1 tablet by mouth once daily. no115/iron/folic acid ( 19 ORAL) Take by mouth. No current facility-administered medications for this visit. Allergies As of Date: 05/04/2025 (No Known Allergies) Fully Assessed 05/04/2025 Allergies and current medication updated:Yes SENSITIVE EXAM: The sensitive examination was discussed with the Patient or Patient's Authorized Upward Bound Director. As applicable, any other physician, advance practice provider, medical student, or other health professional student that will be observing or involved in the sensitive examination for educational or training purposes was discussed with the Patient or Authorized Upward Bound Director. The Patient or Authorized Upward Bound Director has agreed to proceed with the sensitive examination. (Sensitive examination includes inspection and/or palpation of the breasts, pelvis, prostate and anorectal regions). EXAM: BP 98/58 Wt 123 lb (55.8kg) LMP 11/08/2024 GENERAL: upset, female in no apparent distress PELVIC: external genitalia normal, normal Bartholin's glands, urethra, [place]'s glands, no vulvar lesions, no cervical lesions, good vaginal support, physiologic discharge present, normal appearing perineal body and perianal region, external hemorrhoid 1.5 cm, erythemetous but not thrombosed, tender, fluctuant ASSESSMENT AND PLAN: Assessment & Plan Anal or rectal pain External hemorrhoids without complication rx sent d/w her keep stools soft, don't strain cont. sitz baths and tucks pads prn if worsens notify office Bouchra Carrasco MD documented in this encounter [facility] 05-04-2025 Instructions Ann Marie MelissaMEHREEN - 05/04/2025 10:21 AM EDT SEQUENTIAL SCREENINGS The [facility] offers sequential screenings for women who are interested in screenings for chromosomal abnormalities and certain defects during a . The sequential screen combines ultrasound and blood tests to determine the risk of chromosomal abnormalities, including Down's Syndrome (Trisomy 21) and Trisomy 18, as well as open neural tube defects including spina bifida. Ultrasound examination is performed between 11 weeks and 13 weeks gestational age. Blood tests are drawn after the ultrasound and again later in the between 15 and 21 weeks gestational age. Please let your physician know if you are interested in this testing. It will require an appointment with our mechanical sound technician. This is not an ultrasound performed by a physician in our office during a routine visit. SIGNS AND SYMPTOMS OF LABOR 1. Contractions every 10 minutes or more often 2. Clear, pink, or brownish fluid (water) leaking from vagina 3. Feeling that baby is pushing down, pressure 4. Low, dull backache 5. Cramps that feel like a period 6. Cramps with or without diarrhea If you notice any of the above symptoms, contact our office at [phone] and ask to speak with a nurse. After hours, you can call doctors registry at [phone] OR call [facility] at [phone] and ask to have the doctor business operations manager paged. If you consider this an emergency, dial 9-1-4 or go to your nearest emergency department. NEED HELP? Are you dealing with a violent or abusive relationship? Are you a victim of rape or sexual assult? Call [facility] ([place]) 24 hour Crisis Hotline: 561.344.8449 or 511-497-9153. MANUAL Your Guide to a Healthy manual is now on-line. Visit [email or web address] to download your free copy documented in this encounter [facility] 05-03-2025 Telephone encounter Note Patient called in to the office stating that she has tried everything and is so uncomfortable, even lying down. Scheduled patient an appt with AT tomorrow to access. Advised that in some cases general surgery consult is needed. Oriana Moreira RN [facility] 05-03-2025 Miscellaneous Notes Patient called in to the office stating that she has tried everything and is so uncomfortable, even lying down. Scheduled patient an appt with AT tomorrow to access. Advised that in some cases general surgery consult is needed. Oriana Moreira RN She can place a pillow or 2 between her knees to take the pressure off of the hemorrhoid. Cool compresses may also help. Continue using the hydrocortisone cream and Tucks pads. Zina Barillas APRN.CNP 26w0d Can you please address in CP's absence as you had seen patient on 04/15/25 for this. Oriana Moreira RN documented in this encounter [facility] 05-03-2025 Telephone encounter Note She can place a pillow or 2 between her knees to take the pressure off of the hemorrhoid. Cool compresses may also help. Continue using the hydrocortisone cream and Tucks pads. Zina Barillas APRN.ALONZO [facility] 05-03-2025 Telephone encounter Note 26w0d Can you please address in CP's absence as you had seen patient on 04/15/25 for this. Oriana Moreira RN [facility] 05-02-2025 Telephone encounter Note I recommend she check with her OB. but I believe she is okay to receive this vaccine during and since has whooping cough in it, it is usually recommended. [facility] Work Phone: 05-02-2025 Miscellaneous Notes I recommend she check with her OB. but I believe she is okay to receive this vaccine during and since has whooping cough in it, it is usually recommended. Okay for nurse visit for vaccination. documented in this encounter [facility] 05-02-2025 Telephone encounter Note Okay for nurse visit for vaccination. [facility] 04-15-2025 Instructions Zina Barillas APRN.CNP - 04/15/2025 11:19 AM EDT Docusate sodium (Colace) 200 mg at bedtime Do not use any donut pillow Do not sit for long periods of time on the toilet Can use vaseline/Aquaphor/zinc oxide to rectal area prior to having bowel movement documented in this encounter [facility] 04-15-2025 Note HNO ID: [id number] Author: ZINA BARILLAS APRN.CNP Service: ? Author Type: Nurse Practitioner Type: Progress Notes Filed: 04/15/2025 12:41 Note Text: Technical Support Consultant offered: Patient declines. Obstetrics and Gynecology [place] [employer] MECH[employer]IC Visit Subjective Recording using [employer] software for draft documentation of the visit was discussed with the patient/authorized employer relations representative; all questions welcomed and answered. Patient/authorized employer relations representative agreed to proceed CHIEF COMPLAINT: The patient is a 24-year-old female presenting with constipation and hemorrhoids during . HPI: Current - Reports experiencing pressure in her stomach from the baby, making it difficult to distinguish between the urge to have a bowel movement and pressure from the . Constipation - History of constipation prior to , with bowel movements occurring every four days. - Currently undergoing pelvic floor therapy to improve bowel emptying, with six visits planned. - Therapy includes neuromuscular exercises, stretching, and self-group home management. - Reports improvement in bowel movements, now occurring every three days, with softer stools. - Following a regimen to increase dietary fiber and fluids, and using a Squatty Potty. - Denies use of Colace, but is using Miralax. Hemorrhoids - Developed an external hemorrhoid since becoming , not present before. - Using hydrocortisone cream and Tucks pads for management. - Experiences a lot of pressure in the rectum all the time, with increased discomfort during bowel movements and walking. - Reports a burning sensation in the hemorrhoid after bowel movements. - Hemorrhoid size varies, sometimes shrinking to the point where it is not uncomfortable when sitting, but can become really big according to her partner. - No pattern identified for when the hemorrhoid flares up. HISTORY: OB History Gravida1 Para0 Term0 Preterm0 AB0 Living0 SAB0 IAB0 Ectopic0 Multiple0 Live Births0 Contract Admin History LMP: 11/08/2024 (Approximate), Age at Menarche: Age at First : Age at Menopause: Contract Admin History Comments: Sexual Activity: Yes; Male Contraception: No contraception data on record PAST MEDICAL HISTORY Diagnosis Date Anxiety Depression Migraine headache PAST SURGICAL HISTORY Procedure Laterality Date PAST SURGICAL HISTORY OF wisdom teeth FAMILY HISTORY Problem Relation Age of Onset other (gestational diabetes) Mother other (brain tumor) Mother benign No Known Problems Father No Known Problems Sister No Known Problems Sister No Known Problems Brother No Known Problems Maternal Grandmother Diabetes Maternal Grandfather Heart Attack Maternal Grandfather Stroke Maternal Grandfather Systemic Lupus Erythematosus Paternal Grandmother No Known Problems Paternal Grandfather Social History Tobacco Use Smoking status: Never Smokeless tobacco: Never Vaping Use Vaping status: Never Used Substance Use Topics Alcohol use: Never Drug use: Not Currently Types: Marijuana Comment: no marijuana use [facility] 2022 Current Outpatient Medications Medication Sig hydrocortisone (ANUSOL-HC) 2.5 % rectal cream by RECTAL route two times a day. sertraline (ZOLOFT) 100 mg tablet Take 1 tablet by mouth once daily. aspirin, enteric coated (ECOTRIN LOW STRENGTH) 81 mg EC tablet Take 1 tablet by mouth once daily. no115/iron/folic acid ( 19 ORAL) Take by mouth. No current facility-administered medications for this visit. ALLERGIES No Known Allergies REVIEW OF SYSTEMS: Gastrointestinal: (+) constipation, (+) infrequent bowel movements every 3 days, (+) soft watery stool, (+) rectal pressure, (+) rectal burning post-defecation, (+) rectal discomfort with sitting, (+) straining with defecation, (+) intermittent rectal swelling Musculoskeletal: (+) discomfort with walking Objective SENSITIVE EXAM: The sensitive examination was discussed with the Patient or Patient's Authorized Upward Bound Director. As applicable, any other physician, advance practice provider, medical student, or other health professional student that will be observing or involved in the sensitive examination for educational or training purposes was discussed with the Patient or Authorized Upward Bound Director. The Patient or Authorized Upward Bound Director has agreed to proceed with the sensitive examination. (Sensitive examination includes inspection and/or palpation of the breasts, pelvis, prostate and anorectal regions). PHYSICAL EXAM: BP 98/66 Wt 120 lb (54.4kg) LMP 11/08/2024 GENERAL: Pleasant; in no apparent distress PULMONARY: normal inspiratory effort ABDOMEN: gravid : - PELVIC: external genitalia normal, normal Bartholin's glands, urethra, [place]'s glands, no vulvar lesions, no cervical lesions, good vaginal support, physiologic discharge present, normal appearing perineal girish (more content not included)... [facility] 04-15-2025 History of Present illness Narrative Images from the original note were not included. Technical Support Consultant offered: Patient declines. Obstetrics and Gynecology [place] [employer] Visit Subjective Recording using [employer] software for draft documentation of the visit was discussed with the patient/authorized employer relations representative; all questions welcomed and answered. Patient/authorized employer relations representative agreed to proceed CHIEF COMPLAINT: The patient is a 24-year-old female presenting with constipation and hemorrhoids during . HPI: Current - Reports experiencing pressure in her stomach from the baby, making it difficult to distinguish between the urge to have a bowel movement and pressure from the . Constipation - History of constipation prior to , with bowel movements occurring every four days. - Currently undergoing pelvic floor therapy to improve bowel emptying, with six visits planned. - Therapy includes neuromuscular exercises, stretching, and self-group home management. - Reports improvement in bowel movements, now occurring every three days, with softer stools. - Following a regimen to increase dietary fiber and fluids, and using a Squatty Potty. - Denies use of Colace, but is using Miralax. Hemorrhoids - Developed an external hemorrhoid since becoming , not present before. - Using hydrocortisone cream and Tucks pads for management. - Experiences a lot of pressure in the rectum all the time, with increased discomfort during bowel movements and walking. - Reports a burning sensation in the hemorrhoid after bowel movements. - Hemorrhoid size varies, sometimes shrinking to the point where it is not uncomfortable when sitting, but can become really big according to her partner. - No pattern identified for when the hemorrhoid flares up. HISTORY: OB History Gravida1 Para0 Term0 Preterm0 AB0 Living0 SAB0 IAB0 Ectopic0 Multiple0 Live Births0 Contract Admin History LMP: 11/08/2024 (Approximate), Age at Menarche: Age at First : Age at Menopause: Contract Admin History Comments: Sexual Activity: Yes; Male Contraception: No contraception data on record PAST MEDICAL HISTORY Diagnosis Date Anxiety Depression Migraine headache PAST SURGICAL HISTORY Procedure Laterality Date PAST SURGICAL HISTORY OF wisdom teeth FAMILY HISTORY Problem Relation Age of Onset other (gestational diabetes) Mother other (brain tumor) Mother benign No Known Problems Father No Known Problems Sister No Known Problems Sister No Known Problems Brother No Known Problems Maternal Grandmother Diabetes Maternal Grandfather Heart Attack Maternal Grandfather Stroke Maternal Grandfather Systemic Lupus Erythematosus Paternal Grandmother No Known Problems Paternal Grandfather Social History Tobacco Use Smoking status: Never Smokeless tobacco: Never Vaping Use Vaping status: Never Used Substance Use Topics Alcohol use: Never Drug use: Not Currently Types: Marijuana Comment: no marijuana use [facility]2022 Current Outpatient Medications Medication Sig hydrocortisone (ANUSOL-HC) 2.5 % rectal cream by RECTAL route two times a day. sertraline (ZOLOFT) 100 mg tablet Take 1 tablet by mouth once daily. aspirin, enteric coated (ECOTRIN LOW STRENGTH) 81 mg EC tablet Take 1 tablet by mouth once daily. no115/iron/folic acid ( 19 ORAL) Take by mouth. No current facility-administered medications for this visit. ALLERGIES No Known Allergies REVIEW OF SYSTEMS: Gastrointestinal: (+) constipation, (+) infrequent bowel movements every 3 days, (+) soft watery stool, (+) rectal pressure, (+) rectal burning post-defecation, (+) rectal discomfort with sitting, (+) straining with defecation, (+) intermittent rectal swelling Musculoskeletal: (+) discomfort with walking Objective SENSITIVE EXAM: The sensitive examination was discussed with the Patient or Patient's Authorized Upward Bound Director. As applicable, any other physician, advance practice provider, medical student, or other health professional student that will be observing or involved in the sensitive examination for educational or training purposes was discussed with the Patient or Authorized Upward Bound Director. The Patient or Authorized Upward Bound Director has agreed to proceed with the sensitive examination. (Sensitive examination includes inspection and/or palpation of the breasts, pelvis, prostate and anorectal regions). PHYSICAL EXAM: BP 98/66 Wt 120 lb (54.4kg) LMP 11/08/2024 GENERAL: Pleasant; in no apparent distress PULMONARY: normal inspiratory effort ABDOMEN: gravid : - PELVIC: external genitalia normal, normal Bartholin's glands, urethra, [place]'s glands, no vulvar lesions, no cervical lesions, good vaginal support, physiologic discharge present, normal appearing perineal body - BIMANUAL: uterus normal size, shape and consistency, no adnexal masses, non-tender - Patient consent for exam received NEURO: alert and oriented x3 EXTREMITIES: normal RECTAL: One external hemorrhoid, approximately 0.5 cm in diameter, soft, no bleeding noted Assessment & Plan ASSESSMENT AND PLAN: 1. External hemorrhoids without complication (K64.4) - External hemorrhoid approximately 0.5 cm in diameter, no evidence of bleeding. - Continue current use of hydrocortisone cream and Tucks pads. - Advised application of Vaseline, Aquaphor, or zinc oxide around the rectal opening before bowel movements to reduce friction and pressure. - Initiated Colace 200 mg (two 100 mg capsules) orally at bedtime to further soften stool. - Educated on avoiding prolonged sitting on the toilet and the use of hemorrhoid ring pillows to prevent increased swelling. - Patient understands and agrees with the treatment plan. 2. Irritable bowel syndrome with constipation (K58.1) - Improvement noted with increased fiber intake and pelvic floor therapy; bowel movements increased from every 4 days to every 3 days with softer stool consistency. - Continue pelvic floor therapy as scheduled. - Maintain high-fiber diet and adequate hydration, including warm liquids. - Reinforced the use of a Squatty Potty and proper bowel posture to facilitate bowel movements. - Patient understands and agrees with the treatment plan. 3. 23 weeks gestation of (HCC) - ICD9: V22.2, ICD10: Z3A.23 Follow up at scheduled OB visit Zina Barillas APRN.CNP Medical Decision Making: Problems: Moderate: 1+ chronic illnesses with change Risk: Moderate: Drug management Medical Decision Making Level: 4 - Moderate documented in this encounter [facility] 04-13-2025 History of Present illness Narrative Program_ID:[id number] Access Code: [email or web address] URL: [email or web address] Date: 04-13-2025 Prepared By: Dannielle Almaraz Program Notes Exercises - Doorway Pec Stretch at 60 Elevation - 1 x daily - 7 x weekly - 3 sets - reps - Sidelying Thoracic Rotation with Open Book - 1 x daily - 7 x weekly - 3 sets - 10 reps - Seated Lateral Pelvic Tilt on [place] Ball - 1 x daily - 7 x weekly - 3 sets - 10 reps - Seated Lateral Trunk Stretch on [place] Ball - 1 x daily - 7 x weekly - 3 sets - 10 reps - Seated Hip Adductor Stretch on [place] Ball - 1 x daily - 7 x weekly - 3 sets - 10 reps - Seated Hip Flexor Stretch on [place] Ball - 1 x daily - 7 x weekly - 3 sets - 10 reps Patient Education - cc PFPT for - cc General Exercise in - cc Stretching - cc Safe and Effective Body Mechanics - cc Labor Positions and Comfort Strategies - cc Pelvic Floor Bowel Retraining Program Images from the original note were not included. Episode Visit Count: 3 Therapist That Will Accept/Oversee The Plan Of Care: Dannielle Almaraz PT, DPT Start of Care Date: 03/09/25 Onset Date: 01/27/25 Plan of Care Certification Date: 03/09/25 Next Certification Due Date: 06/07/25 Patient Identified by Name and Date of : Yes REHABILITATION AND SPORTS THERAPY PHYSICAL THERAPY PROGRESS REPORT PLAN OF CARE UPDATE: Assessment: Renetta Kaufman demonstrates minimal improvement in physical activities, recreational activities, compromised bladder function, and compromised bowel function. Patient demonstrates ongoing challenges with defecation appearing related to PFM coordination, bowel habits, and muscular flexibility restrictions, therefore will benefit from continues PT to address deficits during remainder of . The patient has progressed toward goals. Patient continues to present with impairments in flexibility, independence in exercise, strength, and symptom management that interfere with bowel function, physical activities, recreational activities . Current prognosis is Good due to: current objective clinical presentation, good support system/ coping skills . The patient will benefit from continued skilled therapy services to meet the updated goals for this plan of care as noted below. Goals for Episode of Care: established 03/09/25 , updated on 04/13/2025 Patient demonstrates independence and compliance with home exercise program.- ongoing Patient displays improved range of motion, coordination, and muscle dynamics of pelvic floor as evidenced by the ability to lengthen without paradoxical contraction at least 90% of the time to normalize bladder/bowel function; reduce pelvic pain.- PROGRESSING Patient reports increased ability to fully empty bladder/bowels at least 90% of the time to normalize bladder/bowel function. - PROGRESSING Patient reports increased water intake to >60 ounces/day to promote bladder and bowel health.- MET Patient demonstrates ability to perform diaphragmatic breathing and relaxation practice independently to allow for decreased muscle tightness, decreased pain, and improved bladder/bowel function. - PROGRESSING Patient will report decreased pain rating by 2 points to meet minimal clinical important difference for numeric pain rating scale. - PROGRESSING Patient Goals: healthy , improve bowel emptying Time Frame for Goals and Treatment : 06/07/25 Planned Interventions, Frequency, and Duration: 1x every other week, 8 weeks Total Number of Visits Planned: 6 Patient to be seen for Therapeutic exercise (56788), Neuromuscular re-education (99511), Manual therapy (98991), Therapeutic activities (78889), Self-group home management (28477), Patient/Family/Caregiver Education, Body Mechanics Training PLAN FOR NEXT VISIT: monitor morning bowel routine and progress in BM freq/consistency; continue with stretching, external manual PRN, diaphragmatic breathing and PFM coordination. SUBJECTIVE: More constipation, hemmorrhoid agg, difficulty sleeping. Drinking prune juice, eating kiwis, freq of BM once every 2 days, some relief in discomfort afterward. Trying to walk and exercise. Sitting has been uncomfortable. FRANC- with general movement a little more now. 2L of water daily. Functional Limitations: bowel function, physical activities, recreational activities Pain: Pain Additional Pain Information : Specific pain level not discussed in order to focus on movement/functional goals Post Treatment Pain Post Treatment Pain Level: Better PROMIS Scales 04/13/2025 03/09/2025 Higher is Better Self-Eff Symptom - T Score 44 (Average) 37 (Low) Self-Eff Symptom - Percentile 27 10 04/13/2025 03/09/2025 Lower is Better Pain Interference - T Score 60 (mild) 58 (mild) Pain Interference - Percentile 16 21 T-scores: mean of general population = 50. 5 points is clinically meaningfully difference Percentiles provide an indication of how the patient's score ranks in relation to the general population. Higher percentile rankings indicate better function/quality of life. 50th percentile is the average of the general population and indicates half of respondents had a worse score. OBJECTIVE MEASURES WITH LEVEL OF FUNCTION: Pelvic Floor Stress Incontinence: Position change, Sneeze Fluid Intake: Other beverage Water : 2L Other beverage : matcha tea- will add to morning routine Bowel Movement Frequency: every 2 days Bowel Movement Consistency (Wishon) : 6: Fluffy pieces with ragged edges, a mushy stool, 5: Soft blobs with clear cut edges Pelvic Floor Muscle Assessment Consent for pelvic assessment/testing and treatment: Patient was educated regarding pelvic floor physical therapy assessment/treatment which may include pelvic floor and girdle muscle assessment externally or internally (vaginal or rectal approach)., Patient verbalized consent for the above treatment approaches today. Patient understands they have control of the treatment and an opportunity to stop treatment at any time. LE Flexibility Flexibility: Hip Adductor, Hip Flexor Flexibility R Hip Flexor Flexibility: min-mod restriction L Hip Flexor Flexibility: mod restriction R Adductor Flexibility: min-mod restriction L Adductor Flexibility: min-mod restriction TREATMENT: Manual Therapy: 2: MFR to QL B in sidelying Skilled Intervention: Manual skills to improve joint mobility, ROM, and decrease pain. Utilized anatomy knowledge of the clinician, and assessment of patient's response to intervention. Neuromuscular Re-Education: 1: medbridge updates 2: *sidelying thoracic rotation with breathing x 10 each 3: *seated on exercise ball: adductor stretch 4: *standing lunge hip flexor stretch- emphasis on L side 5: progress report Skilled Intervention: Education and demonstration for posture and positioning for tone management. Patient education as noted. Self-Detention Management: 1: review of current morning regimen: wake and out of bed 10am, BF: yogurt fruit, bagel, apple; prune juice; walk dog 2: edu for bowel regimen: drink 6-8oz water, eat BF, drink warm liquid (matcha/water w lemon, etc), walk and/or marching in place, if bowel urge present- practice health bowel posture and habits with squatty potty and breathing strategies Skilled Intervention: Skilled judgment in the selection of proper modification for activity of daily living/home management based on clinical presentation, deficits, and needs. Provided written instruction for activities of daily living techniques to facilitate proper performance and compliance. Reviewed and educated patient on additions/changes for home program as noted above with an (*). Billing Manual TherapyTreatment Minutes: 15 Neuromuscular Re-Education Treatment Minutes: 15 Self-Care/Home Management Treatment Minutes: 23 Skilled Treatment Time Minutes (timed and untimed codes): 53 Total Session Time (minutes): 53 Session Start Time : 1109 Session Stop Time : 1202 Dannielle Almaraz PT documented in this encounter [facility] 04-13-2025 Note HNO ID: [id number] Author: DANNIELLE ALMARAZ PT Service: ? Author Type: Physical Therapist Type: Progress Notes Filed: 04/13/2025 13:35 Note Text: Episode Visit Count: 3 Therapist That Will Accept/Oversee The Plan Of Care: Dannielle Almaraz PT, DPT Start of Care Date: 03/09/25 Onset Date: 01/27/25 Plan of Care Certification Date: 03/09/25 Next Certification Due Date: 06/07/25 Patient Identified by Name and Date of : Yes REHABILITATION AND SPORTS THERAPY PHYSICAL THERAPY PROGRESS REPORT PLAN OF CARE UPDATE: Assessment: Renetta Kaufman demonstrates minimal improvement in physical activities, recreational activities, compromised bladder function, and compromised bowel function. Patient demonstrates ongoing challenges with defecation appearing related to PFM coordination, bowel habits, and muscular flexibility restrictions, therefore will benefit from continues PT to address deficits during remainder of . The patient has progressed toward goals. Patient continues to present with impairments in flexibility, independence in exercise, strength, and symptom management that interfere with bowel function, physical activities, recreational activities . Current prognosis is Good due to: current objective clinical presentation, good support system/ coping skills . The patient will benefit from continued skilled therapy services to meet the updated goals for this plan of care as noted below. Goals for Episode of Care: established 03/09/25 , updated on 04/13/2025 Patient demonstrates independence and compliance with home exercise program.- ongoing Patient displays improved range of motion, coordination, and muscle dynamics of pelvic floor as evidenced by the ability to lengthen without paradoxical contraction at least 90% of the time to normalize bladder/bowel function; reduce pelvic pain.- PROGRESSING Patient reports increased ability to fully empty bladder/bowels at least 90% of the time to normalize bladder/bowel function. - PROGRESSING Patient reports increased water intake to >60 ounces/day to promote bladder and bowel health.- MET Patient demonstrates ability to perform diaphragmatic breathing and relaxation practice independently to allow for decreased muscle tightness, decreased pain, and improved bladder/bowel function. - PROGRESSING Patient will report decreased pain rating by 2 points to meet minimal clinical important difference for numeric pain rating scale. - PROGRESSING Patient Goals: healthy , improve bowel emptying Time Frame for Goals and Treatment : 06/07/25 Planned Interventions, Frequency, and Duration: 1x every other week, 8 weeks Total Number of Visits Planned: 6 Patient to be seen for Therapeutic exercise (70722), Neuromuscular re-education (01699), Manual therapy (10180), Therapeutic activities (59741), Self-group home management (76533), Patient/Family/Caregiver Education, Body Mechanics Training PLAN FOR NEXT VISIT: monitor morning bowel routine and progress in BM freq/consistency; continue with stretching, external manual PRN, diaphragmatic breathing and PFM coordination. SUBJECTIVE: More constipation, hemmorrhoid agg, difficulty sleeping. Drinking prune juice, eating kiwis, freq of BM once every 2 days, some relief in discomfort afterward. Trying to walk and exercise. Sitting has been uncomfortable. FRANC- with general movement a little more now. 2L of water daily. Functional Limitations: bowel function, physical activities, recreational activities Pain: Pain Additional Pain Information : Specific pain level not discussed in order to focus on movement/functional goals Post Treatment Pain Post Treatment Pain Level: Better PROMIS Scales 04/13/2025 03/09/2025 Higher is Better Self-Eff Symptom - T Score 44 (Average) 37 (Low) Self-Eff Symptom - Percentile 27 10 04/13/2025 03/09/2025 Lower is Better Pain Interference - T Score 60 (mild) 58 (mild) Pain Interference - Percentile 16 21 T-scores: mean of general population = 50. 5 points is clinically meaningfully difference Percentiles provide an indication of how the patient's score ranks in relation to the general population. Higher percentile rankings indicate better function/quality of life. 50th percentile is the average of the general population and indicates half of respondents had a worse score. OBJECTIVE MEASURES WITH LEVEL OF FUNCTION: Pelvic Floor Stress Incontinence: Position change, Sneeze Fluid Intake: Other beverage Water : 2L Other beverage : matcha tea- will add to morning routine Bowel Movement Frequency: every 2 days Bowel Movement Consistency (Wishon) : 6: Fluffy pieces with ragged edges, a mushy stool, 5: Soft blobs with clear cut edges Pelvic Floor Muscle Assessment Consent for pelvic assessment/testing and treatment: Patient was educated regarding pelvic floor physical therapy assessment/treatment which may include pelvic f (more content not included)... [facility] 04-05-2025 Miscellaneous Notes Centering KRISTA-S: Renetta Kaufman is a 24 year old female who presents at 22w0d with KELLI:08/09/2025, by Ultrasound for a routine visit. Denies headache, visual changes, chest pain, shortness of breath, vaginal bleeding, leakage of fluid, or dysuria. O: See flow sheet Gen: No apparent distress Abd: Gravid, nontender ASSESSMENT/PLAN: 1. Encounter for supervision of normal first in second trimester -Continue PNV and ASA -Anatomy US reviewed 2. 22 weeks gestation of 3. Hemorrhoids -Anusol rx sent 4. with uncertain dates in first trimester -KELLI: 08/09/25 by 8 wk US 5. Depression with anxiety -Continue Zoloft 100mg PO once daily PTL precautions reviewed and when to call RTO in 4 weeks Melody Sauer APRN.CNM documented in this encounter [facility] 04-05-2025 Progress note Formatting of t his note is different from the original. Centering KRISTA-S: Renetta Kaufman is a 24 year old female who presents at 22w0d with KELLI:08/09/2025, by Ultrasound for a routine visit. Denies headache, visual changes, chest pain, shortness of breath, vaginal bleeding, leakage of fluid, or dysuria. O: See flow sheet Gen: No apparent distress Abd: Gravid, nontender ASSESSMENT/PLAN: 1. Encounter for supervision of normal first in second trimester -Continue PNV and ASA -Anatomy US reviewed 2. 22 weeks gestation of 3. Hemorrhoids -Anusol rx sent 4. with uncertain dates in first trimester -KELLI: 08/09/25 by 8 wk US 5. Depression with anxiety -Continue Zoloft 100mg PO once daily PTL precautions reviewed and when to call RTO in 4 weeks Melody Sauer APRN.CNM [facility] 04-05-2025 Instructions Luz Elena Colbert MA - 04/05/2025 2:29 PM EDT SEQUENTIAL SCREENINGS The [facility] offers sequential screenings for women who are interested in screenings for chromosomal abnormalities and certain defects during a . The sequential screen combines ultrasound and blood tests to determine the risk of chromosomal abnormalities, including Down's Syndrome (Trisomy 21) and Trisomy 18, as well as open neural tube defects including spina bifida. Ultrasound examination is performed between 11 weeks and 13 weeks gestational age. Blood tests are drawn after the ultrasound and again later in the between 15 and 21 weeks gestational age. Please let your physician know if you are interested in this testing. It will require an appointment with our mechanical sound technician. This is not an ultrasound performed by a physician in our office during a routine visit. SIGNS AND SYMPTOMS OF LABOR 1. Contractions every 10 minutes or more often 2. Clear, pink, or brownish fluid (water) leaking from vagina 3. Feeling that baby is pushing down, pressure 4. Low, dull backache 5. Cramps that feel like a period 6. Cramps with or without diarrhea If you notice any of the above symptoms, contact our office at [phone] and ask to speak with a nurse. After hours, you can call doctors registry at [phone] OR call [facility] at [phone] and ask to have the doctor business operations manager paged. If you consider this an emergency, dial 9-1-5 or go to your nearest emergency department. NEED HELP? Are you dealing with a violent or abusive relationship? Are you a victim of rape or sexual assult? Call [facility] ([place]) 24 hour Crisis Hotline: 805.419.5074 or 146-548-8179. MANUAL Your Guide to a Healthy manual is now on-line. Visit [email or web address] to download your free copy documented in this encounter [facility] 04-04-2025 Telephone encounter Note Patient reports that since referral to the [facility] that she has been attending [facility] regularly. Reports she finds it very helpful. Her discharge date from [facility] is Mid April States she is getting zoloft 100mg from OB and declines to be connected to psychiatry at this time Provider made patient aware if she feels need to connect to psychiatry in future to have OB place [facility] consult and we can coordinate- patient verbalized understanding [facility] Work Phone: 04-04-2025 Miscellaneous Notes Patient reports that since referral to the [facility] that she has been attending IOP regularly. Reports she finds it very helpful. Her discharge date from IOP is Mid April States she is getting zoloft 100mg from OB and declines to be connected to psychiatry at this time Provider made patient aware if she feels need to connect to psychiatry in future to have OB place [facility] consult and we can coordinate- patient verbalized understanding documented in this encounter [facility] 03-29-2025 Progress note Formatting of t his note might be different from the original. Anatomy ultrasound reviewed. No abnormalities identified. Follow up as clinically indicated. Please place copy in ob chart. Bouchra Carrasco MD [facility] Work Phone: 03-29-2025 Miscellaneous Notes Anatomy ultrasound reviewed. No abnormalities identified. Follow up as clinically indicated. Please place copy in ob chart. Bouchra Carrasco MD documented in this encounter [facility] 03-28-2025 Progress note Formatting of t his note might be different from the original. S: Renetta Kaufman is a 24 year old female who presents at 20 weeks gestation for a routine visit. Just completed anatomy US. Started feeling movements last week. N/V resolved but still having food aversions. Experiencing some dizziness if standing too long. Denies visual changes, chest pain, shortness of breath, vaginal bleeding, leakage of fluid, or dysuria. O: See flow sheet Gen: No apparent distress Abd: Gravid, nontender ASSESSMENT/PLAN: 1. 20 weeks gestation of 2. Encounter for supervision of normal first in second trimester 3. Depression with anxiety - Continue vitamin PO daily - Continue ASA - Continue Zoloft 100 mg PO daily- feels mood is stable - RTO 4 weeks or sooner if needed Shawna Wilson APRN.CNM [facility] 03-28-2025 Miscellaneous Notes S: Renetta Kaufman is a 24 year old female who presents at 20 weeks gestation for a routine visit. Just completed anatomy US. Started feeling movements last week. N/V resolved but still having food aversions. Experiencing some dizziness if standing too long. Denies visual changes, chest pain, shortness of breath, vaginal bleeding, leakage of fluid, or dysuria. O: See flow sheet Gen: No apparent distress Abd: Gravid, nontender ASSESSMENT/PLAN: 1. 20 weeks gestation of 2. Encounter for supervision of normal first in second trimester 3. Depression with anxiety - Continue vitamin PO daily - Continue ASA - Continue Zoloft 100 mg PO daily- feels mood is stable - RTO 4 weeks or sooner if needed Shawna Wilson APRN.CNM documented in this encounter [facility] 03-28-2025 Instructions Barbara Sutton MA - 03/28/2025 3:43 PM EDT SEQUENTIAL SCREENINGS The [facility] offers sequential screenings for women who are interested in screenings for chromosomal abnormalities and certain defects during a . The sequential screen combines ultrasound and blood tests to determine the risk of chromosomal abnormalities, including Down's Syndrome (Trisomy 21) and Trisomy 18, as well as open neural tube defects including spina bifida. Ultrasound examination is performed between 11 weeks and 13 weeks gestational age. Blood tests are drawn after the ultrasound and again later in the between 15 and 21 weeks gestational age. Please let your physician know if you are interested in this testing. It will require an appointment with our mechanical sound technician. This is not an ultrasound performed by a physician in our office during a routine visit. SIGNS AND SYMPTOMS OF LABOR 1. Contractions every 10 minutes or more often 2. Clear, pink, or brownish fluid (water) leaking from vagina 3. Feeling that baby is pushing down, pressure 4. Low, dull backache 5. Cramps that feel like a period 6. Cramps with or without diarrhea If you notice any of the above symptoms, contact our office at [phone] and ask to speak with a nurse. After hours, you can call doctors registry at [phone] OR call [facility] at [phone] and ask to have the doctor business operations manager paged. If you consider this an emergency, dial 9- or go to your nearest emergency department. NEED HELP? Are you dealing with a violent or abusive relationship? Are you a victim of rape or sexual assult? Call [facility] ([place]) 24 hour Crisis Hotline: 951.299.1712 or 042-761-4680. MANUAL Your Guide to a Healthy manual is now on-line. Visit [email or web address] to download your free copy documented in this encounter [facility] 03-23-2025 History of Present illness Narrative Program_ID:[id number] Access Code: [email or web address] URL: [email or web address] Date: 03-23-2025 Prepared By: Dannielle Almaraz Program Notes Exercises - Doorway Pec Stretch at 60 Elevation - 1 x daily - 7 x weekly - 3 sets - reps Patient Education - cc PFPT for - cc General Exercise in - cc Stretching - cc Safe and Effective Body Mechanics - cc Labor Positions and Comfort Strategies Episode Visit Count: 2 Therapist That Will Accept/Oversee The Plan Of Care: Dannielle Almaraz PT, DPT Start of Care Date: 03/09/25 Onset Date: 01/27/25 Plan of Care Certification Date: 03/09/25 Next Certification Due Date: 06/07/25 Patient Identified by Name and Date of : Yes REHABILITATION AND SPORTS THERAPY PHYSICAL THERAPY TREATMENT NOTE ASSESSMENT: Renetta Kaufman tolerated the session with no issues. She demonstrated improvements in PFM awareness with tactile and verbal cues. The patient will continue to benefit from ongoing skilled physical therapy to progress toward set goals. PLAN FOR NEXT VISIT: protocol, internal rectal or vaginal assessment as able, bowel function and labor and delivery prep. SUBJECTIVE: Pt reports she's made some diet changes and eating kiwis which seems to help BM's. Compliant with exercises. Adding in some more walks. 20wks. Pain: Pain Pain Level: 3 Pain Location: Back Description: Sore Frequency: Intermittent Post Treatment Pain Post Treatment Pain Level: Better OBJECTIVE MEASURES WITH LEVEL OF FUNCTION: Pelvic Floor Muscle Assessment Consent for pelvic assessment/testing and treatment: Patient was educated regarding pelvic floor physical therapy assessment/treatment which may include pelvic floor and girdle muscle assessment externally or internally (vaginal or rectal approach)., Patient verbalized consent for the above treatment approaches today. Patient understands they have control of the treatment and an opportunity to stop treatment at any time. (external) Pelvic Floor Muscle Assessment: Muscle Dynamics Contracton Pressure: Weak squeeze, felt as flick at various points along finger surface, not all the way around Duration of Contraction: >1 to <3 seconds Recruitment of pelvic floor muscles: Coordinated Ability to Lengthen pelvic floor: Difficulty at first, but improves with cueing and practice Relaxation Postcontraction: Partial Breathing Pattern : chest Diaphragmatic Breathing : Fair Pelvic Floor Manual Assessment External Pelvic Region Tenderness/ Hyperactivity - Trunk: Lumbar Paraspinals Lumbar Paraspinals: Bilateral External Pelvic Region Tenderness/ Hyperactivity - Lower Extremity: ITB, Lateral thigh, Buttock Lateral thigh: Bilateral ITB: Bilateral Buttock: Bilateral TREATMENT: Manual Therapy: 1: STM to lateral hips, glutes, lumbar paraspinals in sidelying B 2: MFR to QL B in sidelying Skilled Intervention: Manual skills to improve joint mobility, ROM, and decrease pain. Utilized anatomy knowledge of the clinician, and assessment of patient's response to intervention. Neuromuscular Re-Education: 1: medbnridge progressions: 2: *doorway pec stretch 3: seated PFM lengthening on rolled towel 4: tactile cues for PFM dynamics in hooklying: contract, relax, lengthen 5: tactile cues in hooklying for PFM long and short holds 6: tactile cues in hooklying for PFM lengthening with diaphragmatic breathing Skilled Intervention: Skilled judgment used to assess appropriate program for balance and coordination activity. Reviewed and educated patient on additions/changes for home program as noted above with an (*). Patient education as noted. Self-Detention Management: 1: - comfort strategies and positioning for L&D 2: discussion of signing up for an L& D course through [facility] Skilled Intervention: Skilled judgment in the selection of proper modification for activity of daily living/home management based on clinical presentation, deficits, and needs. Activity progression based on professional judgement. Reviewed and educated patient on additions/changes for home program as noted above with an (*). Billing Manual TherapyTreatment Minutes: 15 Neuromuscular Re-Education Treatment Minutes: 15 Self-Care/Home Management Treatment Minutes: 15 Skilled Treatment Time Minutes (timed and untimed codes): 45 Total Session Time (minutes): 49 Session Start Time : 1405 Session Stop Time : 1454 Dannielle Almaraz PT documented in this encounter [facility] 03-23-2025 Note HNO ID: [id number] Author: DANNIELLE ALMARAZ PT Service: ? Author Type: Physical Therapist Type: Progress Notes Filed: 03/23/2025 15:04 Note Text: Episode Visit Count: 2 Therapist That Will Accept/Oversee The Plan Of Care: Dannielle Almaraz PT, DPT Start of Care Date: 03/09/25 Onset Date: 01/27/25 Plan of Care Certification Date: 03/09/25 Next Certification Due Date: 06/07/25 Patient Identified by Name and Date of : Yes REHABILITATION AND SPORTS THERAPY PHYSICAL THERAPY TREATMENT NOTE ASSESSMENT: Renetta Kaufman tolerated the session with no issues. She demonstrated improvements in PFM awareness with tactile and verbal cues. The patient will continue to benefit from ongoing skilled physical therapy to progress toward set goals. PLAN FOR NEXT VISIT: protocol, internal rectal or vaginal assessment as able, bowel function and labor and delivery prep. SUBJECTIVE: Pt reports she's made some diet changes and eating kiwis which seems to help BM's. Compliant with exercises. Adding in some more walks. 20wks. Pain: Pain Pain Level: 3 Pain Location: Back Description: Sore Frequency: Intermittent Post Treatment Pain Post Treatment Pain Level: Better OBJECTIVE MEASURES WITH LEVEL OF FUNCTION: Pelvic Floor Muscle Assessment Consent for pelvic assessment/testing and treatment: Patient was educated regarding pelvic floor physical therapy assessment/treatment which may include pelvic floor and girdle muscle assessment externally or internally (vaginal or rectal approach)., Patient verbalized consent for the above treatment approaches today. Patient understands they have control of the treatment and an opportunity to stop treatment at any time. (external) Pelvic Floor Muscle Assessment: Muscle Dynamics Contracton Pressure: Weak squeeze, felt as flick at various points along finger surface, not all the way around Duration of Contraction: >1 to <3 seconds Recruitment of pelvic floor muscles: Coordinated Ability to Lengthen pelvic floor: Difficulty at first, but improves with cueing and practice Relaxation Postcontraction: Partial Breathing Pattern : chest Diaphragmatic Breathing : Fair Pelvic Floor Manual Assessment External Pelvic Region Tenderness/ Hyperactivity - Trunk: Lumbar Paraspinals Lumbar Paraspinals: Bilateral External Pelvic Region Tenderness/ Hyperactivity - Lower Extremity: ITB, Lateral thigh, Buttock Lateral thigh: Bilateral ITB: Bilateral Buttock: Bilateral TREATMENT: Manual Therapy: 1: STM to lateral hips, glutes, lumbar paraspinals in sidelying B 2: MFR to QL B in sidelying Skilled Intervention: Manual skills to improve joint mobility, ROM, and decrease pain. Utilized anatomy knowledge of the clinician, and assessment of patient's response to intervention. Neuromuscular Re-Education: 1: medbnridge progressions: 2: *doorway pec stretch 3: seated PFM lengthening on rolled towel 4: tactile cues for PFM dynamics in hooklying: contract, relax, lengthen 5: tactile cues in hooklying for PFM long and short holds 6: tactile cues in hooklying for PFM lengthening with diaphragmatic breathing Skilled Intervention: Skilled judgment used to assess appropriate program for balance and coordination activity. Reviewed and educated patient on additions/changes for home program as noted above with an (*). Patient education as noted. Self-Detention Management: 1: - comfort strategies and positioning for LANDD 2: discussion of signing up for an LAND D course through [facility] Skilled Intervention: Skilled judgment in the selection of proper modification for activity of daily living/home management based on clinical presentation, deficits, and needs. Activity progression based on professional judgement. Reviewed and educated patient on additions/changes for home program as noted above with an (*). Billing Manual TherapyTreatment Minutes: 15 Neuromuscular Re-Education Treatment Minutes: 15 Self-Care/Home Management Treatment Minutes: 15 Skilled Treatment Time Minutes (timed and untimed codes): 45 Total Session Time (minutes): 49 Session Start Time : 1405 Session Stop Time : 1454 Dannielle Almaraz PT [facility] 03-09-2025 Miscellaneous Notes Centering KRISTA-S: Renetta Kaufman is a 24 year old female who presents at 18w1d with KELLI:08/09/2025, by Ultrasound for a routine visit. Denies headache, visual changes, chest pain, shortness of breath, vaginal bleeding, leakage of fluid, or dysuria. O: See flow sheet Gen: No apparent distress Abd: Gravid, nontender ASSESSMENT/PLAN: 1. Encounter for supervision of normal first in second trimester -Continue PNV and ASA -Anatomy US scheduled 2. 18 weeks gestation of 3. Constipation during in first trimester -Taking Magnesium citrate once daily 4. Nausea and vomiting during -Coping well, declines medication 5. Depression with anxiety -Continue Zoloft 100mg PO once daily 6. with uncertain dates in first trimester -KELLI: 08/09/25 by 8 wk US PTL precautions reviewed and when to call RTO in 4 weeks Melody Sauer APRN.CNM documented in this encounter [facility] 03-09-2025 Progress note Formatting of t his note might be different from the original. Centering KRISTA-S: Renetta Kaufman is a 24 year old female who presents at 18w1d with KELLI:08/09/2025, by Ultrasound for a routine visit. Denies headache, visual changes, chest pain, shortness of breath, vaginal bleeding, leakage of fluid, or dysuria. O: See flow sheet Gen: No apparent distress Abd: Gravid, nontender ASSESSMENT/PLAN: 1. Encounter for supervision of normal first in second trimester -Continue PNV and ASA -Anatomy US scheduled 2. 18 weeks gestation of 3. Constipation during in first trimester -Taking Magnesium citrate once daily 4. Nausea and vomiting during -Coping well, declines medication 5. Depression with anxiety -Continue Zoloft 100mg PO once daily 6. with uncertain dates in first trimester -KELLI: 08/09/25 by 8 wk US PTL precautions reviewed and when to call RTO in 4 weeks Melody Sauer APRN.CNM [facility] 03-09-2025 To Shin MA - 03/09/2025 2:24 PM EDT SEQUENTIAL SCREENINGS The [facility] offers sequential screenings for women who are interested in screenings for chromosomal abnormalities and certain defects during a . The sequential screen combines ultrasound and blood tests to determine the risk of chromosomal abnormalities, including Down's Syndrome (Trisomy 21) and Trisomy 18, as well as open neural tube defects including spina bifida. Ultrasound examination is performed between 11 weeks and 13 weeks gestational age. Blood tests are drawn after the ultrasound and again later in the between 15 and 21 weeks gestational age. Please let your physician know if you are interested in this testing. It will require an appointment with our mechanical sound technician. This is not an ultrasound performed by a physician in our office during a routine visit. SIGNS AND SYMPTOMS OF LABOR 1. Contractions every 10 minutes or more often 2. Clear, pink, or brownish fluid (water) leaking from vagina 3. Feeling that baby is pushing down, pressure 4. Low, dull backache 5. Cramps that feel like a period 6. Cramps with or without diarrhea If you notice any of the above symptoms, contact our office at [phone] and ask to speak with a nurse. After hours, you can call doctors registry at [phone] OR call [facility] at [phone] and ask to have the doctor business operations manager paged. If you consider this an emergency, dial 8-4-3 or go to your nearest emergency department. NEED HELP? Are you dealing with a violent or abusive relationship? Are you a victim of rape or sexual assult? Call [facility] ([place]) 24 hour Crisis Hotline: 392.714.9335 or 255-447-5487. MANUAL Your Guide to a Healthy manual is now on-line. Visit [email or web address] to download your free copy documented in this encounter [facility] 03-09-2025 History of Present illness Narrative Program_ID:[id number] Access Code: [email or web address] URL: [email or web address] Date: 03-09-2025 Prepared By: Dannielle Almaraz Program Notes Patient Education - cc PFPT for - cc General Exercise in - cc Stretching - cc Safe and Effective Body Mechanics Images from the original note were not included. Episode Visit Count: 1 Therapist That Will Accept/Oversee The Plan Of Care: Dannielle Almaraz PT, DPT Start of Care Date: 03/09/25 Onset Date: 01/27/25 Plan of Care Certification Date: 03/09/25 Next Certification Due Date: 06/07/25 Patient Identified by Name and Date of : Yes REHABILITATION AND SPORTS THERAPY PHYSICAL THERAPY EVALUATION PLAN OF CARE: Assessment: Renetta Kaufman presents with chief complaint of pelvic region pain and constipation in current that interferes with bowel function, physical activities, recreational activities . The patient presents with impairments in coordination, flexibility, independence in exercise, overall function, posture, strength, symptom management, and tissue tenderness. PROMIS (Patient-Reported Outcomes Measurement Information System) scores were reviewed and identified as a rehabilitation concern. Prognosis for therapy is Good due to: current objective clinical presentation, good support system/ coping skills . The patient will benefit from skilled therapy services to meet the goals established for this plan of care as noted below. Goals for Episode of Care: established 03/09/25 Patient demonstrates independence and compliance with home exercise program. Patient displays improved range of motion, coordination, and muscle dynamics of pelvic floor as evidenced by the ability to lengthen without paradoxical contraction at least 90% of the time to normalize bladder/bowel function; reduce pelvic pain. Patient reports increased ability to fully empty bladder/bowels at least 90% of the time to normalize bladder/bowel function. Patient reports increased water intake to >60 ounces/day to promote bladder and bowel health. Patient demonstrates ability to perform diaphragmatic breathing and relaxation practice independently to allow for decreased muscle tightness, decreased pain, and improved bladder/bowel function. Patient will report decreased pain rating by 2 points to meet minimal clinical important difference for numeric pain rating scale. Patient Goals: healthy , improve bowel emptying Time Frame for Goals and Treatment : 06/07/25 Planned Interventions, Frequency, and Duration: Current Frequency: 1x every other week Duration: 8 weeks Total Number of Visits Planned: 8 () Planned Treatment Interventions: Therapeutic exercise (11118), Neuromuscular re-education (34926), Manual therapy (45201), Therapeutic activities (59048), Self-group home management (05862), Patient/Family/Caregiver Education, Body Mechanics Training PLAN FOR NEXT VISIT: stretching, internal rectal or vaginal assessment as able, bowel function and labor and dleivery prep. Patient demonstrates good understanding of plan of care and treatment. The above goals and plan of care were discussed and agreed upon by patient/family. SUBJECTIVE: Pt currently 18w1d . Some round ligament pain/cramping all over, IBS symptoms. PRevious history of PFPT while living in [facility]. Was being treated pre . Patient Goals: healthy , improve bowel emptying Functional Limitations: bowel function, physical activities, recreational activities Prior Level of Function: Independent without limitations Relevant History Recreation / Current Exercise: not much during initial first trimester; did yoga pre ; currently walking Intake Information: Prescription present Falls Interview: No positive findings with falls interview Aquatic Screen: No PAST MEDICAL HISTORY Diagnosis Date Anxiety Depression Migraine headache PAST SURGICAL HISTORY Procedure Laterality Date PAST SURGICAL HISTORY OF wisdom teeth Pain: Pain Pain Level: 4 Pain Location: Abdomen Description: Cramping, Bloating Frequency: Intermittent Post Treatment Pain Post Treatment Pain Level: No Change PROMIS Scales 03/09/2025 Higher is Better Self-Eff Symptom - T Score 37 (Low) Self-Eff Symptom - Percentile 10 03/09/2025 Lower is Better Pain Interference - T Score 58 (mild) Pain Interference - Percentile 21 T-scores: mean of general population = 50. 5 points is clinically meaningfully difference Percentiles provide an indication of how the patient's score ranks in relation to the general population. Higher percentile rankings indicate better function/quality of life. 50th percentile is the average of the general population and indicates half of respondents had a worse score. OBJECTIVE MEASURES WITH LEVEL OF FUNCTION: Pelvic Floor Pregnancies: 1 Births: 0 Urinary/Bowel History : Urinary History, Bowel History Difficulty starting stream: Sometimes Incomplete emptying: Sometimes Stress Incontinence: Sneeze, Position change, Jumping (intermittent) Nocturia (times per night) : 2-3x/night Daytime Frequency (hours): every 1-2 hrs Toileting habits: Time spent on toilet (20min, trying to push) Fluid Intake: Water Water : alkaline water 33-60oz Bowel Movement Frequency: every 2 days Bowel Movement Consistency ([place]) : 1: Seperate hard lumps, like nuts, 2: Sausage-shaped but lumpy Fecal incontinence: No Daily Dietary Fiber/ Food Intake: BF: yogurt, fruit, nutella, fruits (corey, berries, cucumbers, watermelon) Bowel Aides / Supplements: 500mg magnesium, with iron, probiotics, adding more fiber Lumbar Flexion: Normal Lumbar Extension: Minimal limitation Pelvic Floor Muscle Assessment Consent for pelvic assessment/testing and treatment: Patient was educated regarding pelvic floor physical therapy assessment/treatment which may include pelvic floor and girdle muscle assessment externally or internally (vaginal or rectal approach)., Patient verbalized consent for the above treatment approaches today. Patient understands they have control of the treatment and an opportunity to stop treatment at any time. (external palpation) Pelvic Floor Muscle Assessment: Muscle Dynamics Contracton Pressure: Weak squeeze, felt as flick at various points along finger surface, not all the way around Duration of Contraction: >1 to <3 seconds Ability to Lengthen pelvic floor: Difficulty at first, but improves with cueing and practice Relaxation Postcontraction: Partial Diaphragmatic Breathing : Fair Pelvic Floor Manual Assessment Pelvic Floor Tenderness/Hyperactivity: Tested Externally in Tested Externally in: Supine/hooklying Pelvic Region Sensation: Grossly Intact LE AROM R LE AROM: grossly WNL L LE AROM: grossly WNL LE Flexibility Flexibility: Hamstring Flexibility, Piriformis Flexibility R Hamstring Flexibility: min restriction L Hamstring Flexibility: min restriction R Piriformis Flexibility: min restriction L Piriformis Flexibility: min restriction Education: Education Learning Preferences: Demonstration, Explanation, Performance, Printed Materials Barriers: None Learning/educational needs: Plan of Care, Home exercise program Education Provided: Yes, see treatment interventions for education provided Education Provided To: Patient Education Mode/Type: Demonstration, Explanation/Discussion, Literature/Printed Materials, Performance Response to Education/Teach Back: Return Demonstration, States/Identifies TREATMENT: PT Treatment Interventions: Neuromuscular Re-Education, Self-Detention Management Evaluation Neuromuscular Re-Education: 1: pt edu: POC, HEP, prognosis, PFM anatomy and function 2: MARGARET: 3: Access Code: [email or web address] URL: [email or web address] Date: 03/09/2025 Prepared by: Dannielle Almaraz Patient Education - cc PFPT for - cc General Exercise in Skilled Intervention: Education and demonstration for posture and positioning for tone management. Reviewed and educated patient on additions/changes for home program as noted above with an (*). Self-Detention Management: 1: - cc Stretching - cc Safe and Effective Body Mechanics Skilled Intervention: Activity progression based on professional judgement. Reviewed and educated patient on additions/changes for home program as noted above with an (*). Billing * Evaluation Low Complexity: 1 Unit Neuromuscular Re-Education Treatment Minutes: 23 Self-Care/Home Management Treatment Minutes: 15 Skilled Treatment Time Minutes (timed and untimed codes): 60 Total Session Time (minutes): 65 Session Start Time : 1030 Session Stop Time : 1135 Dannielle Almaraz PT documented in this encounter [facility] 03-09-2025 Note HNO ID: [id number] Author: DANNIELLE ALMARAZ PT Service: ? Author Type: Physical Therapist Type: Progress Notes Filed: 03/09/2025 16:41 Note Text: Episode Visit Count: 1 Therapist That Will Accept/Oversee The Plan Of Care: Dannielle Almaraz PT, DPT Start of Care Date: 03/09/25 Onset Date: 01/27/25 Plan of Care Certification Date: 03/09/25 Next Certification Due Date: 06/07/25 Patient Identified by Name and Date of : Yes REHABILITATION AND SPORTS THERAPY PHYSICAL THERAPY EVALUATION PLAN OF CARE: Assessment: Renetta Kaufman presents with chief complaint of pelvic region pain and constipation in current that interferes with bowel function, physical activities, recreational activities . The patient presents with impairments in coordination, flexibility, independence in exercise, overall function, posture, strength, symptom management, and tissue tenderness. PROMIS? (Patient-Reported Outcomes Measurement Information System) scores were reviewed and identified as a rehabilitation concern. Prognosis for therapy is Good due to: current objective clinical presentation, good support system/ coping skills . The patient will benefit from skilled therapy services to meet the goals established for this plan of care as noted below. Goals for Episode of Care: established 03/09/25 Patient demonstrates independence and compliance with home exercise program. Patient displays improved range of motion, coordination, and muscle dynamics of pelvic floor as evidenced by the ability to lengthen without paradoxical contraction at least 90% of the time to normalize bladder/bowel function; reduce pelvic pain. Patient reports increased ability to fully empty bladder/bowels at least 90% of the time to normalize bladder/bowel function. Patient reports increased water intake to >60 ounces/day to promote bladder and bowel health. Patient demonstrates ability to perform diaphragmatic breathing and relaxation practice independently to allow for decreased muscle tightness, decreased pain, and improved bladder/bowel function. Patient will report decreased pain rating by 2 points to meet minimal clinical important difference for numeric pain rating scale. Patient Goals: healthy , improve bowel emptying Time Frame for Goals and Treatment : 06/07/25 Planned Interventions, Frequency, and Duration: Current Frequency: 1x every other week Duration: 8 weeks Total Number of Visits Planned: 8 () Planned Treatment Interventions: Therapeutic exercise (06244), Neuromuscular re-education (35435), Manual therapy (40065), Therapeutic activities (31646), Self-group home management (42002), Patient/Family/Caregiver Education, Body Mechanics Training PLAN FOR NEXT VISIT: stretching, internal rectal or vaginal assessment as able, bowel function and labor and dleivery prep. Patient demonstrates good understanding of plan of care and treatment. The above goals and plan of care were discussed and agreed upon by patient/family. SUBJECTIVE: Pt currently 18w1d . Some round ligament pain/cramping all over, IBS symptoms. PRevious history of PFPT while living in [facility]. Was being treated pre . Patient Goals: healthy , improve bowel emptying Functional Limitations: bowel function, physical activities, recreational activities Prior Level of Function: Independent without limitations Relevant History Recreation / Current Exercise: not much during initial first trimester; did yoga pre ; currently walking Intake Information: Prescription present Falls Interview: No positive findings with falls interview Aquatic Screen: No PAST MEDICAL HISTORY Diagnosis Date Anxiety Depression Migraine headache PAST SURGICAL HISTORY Procedure Laterality Date PAST SURGICAL HISTORY OF wisdom teeth Pain: Pain Pain Level: 4 Pain Location: Abdomen Description: Cramping, Bloating Frequency: Intermittent Post Treatment Pain Post Treatment Pain Level: No Change PROMIS Scales 03/09/2025 Higher is Better Self-Eff Symptom - T Score 37 (Low) Self-Eff Symptom - Percentile 10 03/09/2025 Lower is Better Pain Interference - T Score 58 (mild) Pain Interference - Percentile 21 T-scores: mean of general population = 50. 5 points is clinically meaningfully difference Percentiles provide an indication of how the patient's score ranks in relation to the general population. Higher percentile rankings indicate better function/quality of life. 50th percentile is the average of the general population and indicates half of respondents had a worse score. OBJECTIVE MEASURES WITH LEVEL OF FUNCTION: Pelvic Floor Pregnancies: 1 Births: 0 Urinary/Bowel History : Urinary History, Bowel History Difficulty starting stream: Sometimes Incomplete emptying: Sometimes Stress Incontinence: Sneeze, Position change, Jumping (intermittent) Nocturia (times p (more content not included)... [facility] 02-14-2025 Telephone encounter Note Please file anatomy order then will forward to PSS to call pt back to schedule. Estefani Iglesias RN [facility] 02-14-2025 Miscellaneous Notes Please file anatomy order then will forward to PSS to call pt back to schedule. Estefani Iglesias RN Please place order for 20 week anatomy scan for patient, then route back to scheduling. Tana Araya February 14, 2025 9:58 AM documented in this encounter [facility] 02-14-2025 Telephone encounter Note Please place order for 20 week anatomy scan for patient, then route back to scheduling. Tana Araya February 14, 2025 9:58 AM [facility] 02-09-2025 To Shin MA - 02/09/2025 2:22 PM EDT SEQUENTIAL SCREENINGS The [facility] offers sequential screenings for women who are interested in screenings for chromosomal abnormalities and certain defects during a . The sequential screen combines ultrasound and blood tests to determine the risk of chromosomal abnormalities, including Down's Syndrome (Trisomy 21) and Trisomy 18, as well as open neural tube defects including spina bifida. Ultrasound examination is performed between 11 weeks and 13 weeks gestational age. Blood tests are drawn after the ultrasound and again later in the between 15 and 21 weeks gestational age. Please let your physician know if you are interested in this testing. It will require an appointment with our mechanical sound technician. This is not an ultrasound performed by a physician in our office during a routine visit. SIGNS AND SYMPTOMS OF LABOR 1. Contractions every 10 minutes or more often 2. Clear, pink, or brownish fluid (water) leaking from vagina 3. Feeling that baby is pushing down, pressure 4. Low, dull backache 5. Cramps that feel like a period 6. Cramps with or without diarrhea If you notice any of the above symptoms, contact our office at [phone] and ask to speak with a nurse. After hours, you can call doctors registry at [phone] OR call [facility] at [phone] and ask to have the doctor business operations manager paged. If you consider this an emergency, dial 9-1- or go to your nearest emergency department. NEED HELP? Are you dealing with a violent or abusive relationship? Are you a victim of rape or sexual assult? Call [facility] ([place]) 24 hour Crisis Hotline: 555.847.5945 or 752-953-2546. MANUAL Your Guide to a Healthy manual is now on-line. Visit [facility].org/HealthyPregna ncyGuide to download your free copy documented in this encounter [facility] 02-09-2025 Progress note Formatting of t his note might be different from the original. CP - Centering S: Renetta Kaufman is a 24 year old female who presents at 14 weeks gestation for a routine/centering group. No movements to date. Increased food aversions and does not feel like she has any appetite. Reports increased anxiety over several things with , baby, post , etc. Also, just got a puppy and this has increased stress level. She is receiving counseling through [facility] Started on Zoloft 50 mg PO Daily 4 weeks ago. O: See flow sheet Gen: No apparent distress Abd: Gravid, nontender ASSESSMENT/PLAN: 1. 14 weeks gestation of 2. Encounter for supervision of high risk in second trimester, antepartum 3. Depression with anxiety - Zoloft 50 mg PO Daily- does not feel this is working much. Feels increased anxiety since starting medications. - Recommended seeing psychiatry at [facility] to evaluate/ monitor medications - Increased lower back / pelvic pain at times- recommended childcare director/support belt - Currently being treated by physical therapy - Requesting aneuploidy screening today- Order for MaterniT 21 placed - RTO 4 weeks or sooner if needed Shawna Wilson APRN.CNM [facility] 02-09-2025 Miscellaneous Notes CP - Centering S: Renetta Kaufman is a 24 year old female who presents at 14 weeks gestation for a routine/centering group. No movements to date. Increased food aversions and does not feel like she has any appetite. Reports increased anxiety over several things with , baby, post , etc. Also, just got a puppy and this has increased stress level. She is receiving counseling through [facility]. Started on Zoloft 50 mg PO Daily 4 weeks ago. O: See flow sheet Gen: No apparent distress Abd: Gravid, nontender ASSESSMENT/PLAN: 1. 14 weeks gestation of 2. Encounter for supervision of high risk in second trimester, antepartum 3. Depression with anxiety - Zoloft 50 mg PO Daily- does not feel this is working much. Feels increased anxiety since starting medications. - Recommended seeing psychiatry at [facility] to evaluate/ monitor medications - Increased lower back / pelvic pain at times- recommended childcare director/support belt - Currently being treated by physical therapy - Requesting aneuploidy screening today- Order for MaterniT 21 placed - RTO 4 weeks or sooner if needed Shawna Wilson APRN.CNM documented in this encounter [facility] 01-06-2025 Note HNO ID: [id number] Author: AUGUSTIN BOYCE APRN.MANUFACTURING OPERATIONS MANAGER Service: ? Author Type: Nurse Practitioner Type: Progress Notes Filed: 01/06/2025 16:17 Note Text: EH - S: Renetta is a 24 year old female who presents at 9w2d for an add on visit for depression and anxiety with , vaginal discharge without itching, and urinary frequency. Participation of a fellow, resident, medical student, or advanced practice provider student in performing the sensitive examination was discussed with the patient or authorized employer relations representative. The patient or authorized employer relations representative has agreed to proceed with the sensitive examination. O: See flow sheet Gen: No apparent distress Abd: Gravid, nontender PELVIS: External genitalia normal without lesions. Perineal body intact. No vaginal or cervical lesions. Cervix closed. + brown thick discharge ASSESSMENT/PLAN: 1. Encounter for supervision of high risk in first trimester, antepartum ([facility]) - ICD9: V23.9, ICD10: O09.91 (primary diagnosis) 2. 9 weeks gestation of ([facility]) - ICD9: V22.2, ICD10: Z3A.09 3. Depression with anxiety - ICD9: 300.4, ICD10: F41.8 - Noticed increased depression and anxiety over the last week - Reports thoughts of self harm and ending , but no active plan - Stopped Prozac in October - Wants to start seeing counselor again, but recent insurance changes have caused issues with this - Notes panic attacks - Opts to trial medication. Reviewed risks and benefits to mother and baby. Patient to go to ER with suicidal thoughts or thoughts of harming others. Discussed will likely take 4-6 weeks to notice full effect. Reviewed that symptoms can become worse before better. - Women's consult placed 4. Vaginal discharge during in first trimester ([facility]) - ICD9: 646.83, 623.5, ICD10: O26.891, N89.8 - BACTERIAL VAGINOSIS NAAT - HOWARD/TRICHOMONAS NAAT 5. Urinary frequency - ICD9: 788.41, ICD10: R35.0 - BACTERIAL CULTURE, URINE - UA DIP, URINE (POC) RTO as scheduled or sooner as needed. Augustin Boyce APRN.MANUFACTURING OPERATIONS MANAGER [facility] 01-06-2025 History of Present illness Narrative AMY - S: Renetta is a 24 year old female who presents at 9w2d for an add on visit for depression and anxiety with , vaginal discharge without itching, and urinary frequency. Participation of a fellow, resident, medical student, or advanced practice provider student in performing the sensitive examination was discussed with the patient or authorized employer relations representative. The patient or authorized employer relations representative has agreed to proceed with the sensitive examination. O: See flow sheet Gen: No apparent distress Abd: Gravid, nontender PELVIS: External genitalia normal without lesions. Perineal body intact. No vaginal or cervical lesions. Cervix closed. + brown thick discharge ASSESSMENT/PLAN: 1. Encounter for supervision of high risk in first trimester, antepartum ([facility]) - ICD9: V23.9, ICD10: O09.91 (primary diagnosis) 2. 9 weeks gestation of ([facility]) - ICD9: V22.2, ICD10: Z3A.09 3. Depression with anxiety - ICD9: 300.4, ICD10: F41.8 - Noticed increased depression and anxiety over the last week - Reports thoughts of self harm and ending , but no active plan - Stopped Prozac in October - Wants to start seeing counselor again, but recent insurance changes have caused issues with this - Notes panic attacks - Opts to trial medication. Reviewed risks and benefits to mother and baby. Patient to go to ER with suicidal thoughts or thoughts of harming others. Discussed will likely take 4-6 weeks to notice full effect. Reviewed that symptoms can become worse before better. - Women's consult placed 4. Vaginal discharge during in first trimester ([facility]) - ICD9: 646.83, 623.5, ICD10: O26.891, N89.8 - BACTERIAL VAGINOSIS NAAT - HOWARD/TRICHOMONAS NAAT 5. Urinary frequency - ICD9: 788.41, ICD10: R35.0 - BACTERIAL CULTURE, URINE - UA DIP, URINE (POC) RTO as scheduled or sooner as needed. Augustin Boyce APRN.MANUFACTURING OPERATIONS MANAGER documented in this encounter [facility] 01-06-2025 Instructions Augustin Boyce APRN.CNP - 01/06/2025 3:51 PM EDT Images from the original note were not included. Psychotherapy Services at [facility] Call Behavioral Health Access Line at [phone] to schedule Individual psychotherapy In-person or virtual Wait time for first evaluation may be 12 or more weeks. Wait list spots may be available. Due to the high volume of patients this option is recommended if you are looking for short term acute symptom coping strategies. 0-022-5-IAFB7DKPG - [place] Maternal Mental Health Hotline If you are in suicidal crisis, please call or text 6-964-638-TALK ( ) or visit the National Suicide Prevention Lifeline website. mchb.[facility].gov If you are in crisis, call 121 or go to your nearest Emergency Department Here are some links for wonderful Providers here in the community and surrounding areas. Do not hesitate to contact their offices, many are offering virtual visits during this time. Psychotherapy Services outside of [facility] Support International Online Provider Directory https://Ozmota/ - can assist in finding providers in your area that might be more extensive then the list below. [facility] - [place], [place] [address] [place] [address] [facility] [address] [place] [address] [facility] [address] [place] [address] [facility] [address] [place] [id number] Aishwarya Mills MD [address] [place] [address] [facility] [address] [facility], [address] [place] [address] [facility] [address] [place] [address] [facility] Counseling Services [place] / [place] [phone]/ [phone] Wendy Mclain [address] [facility] [phone] Aves of Counseling and Mediation Nika / Jojo [phone] [facility] [address] [place] [address]/ [place] [phone] Silvio Smalls, BENNY, ALFRED [facility] Beyond Family Therapy Workshops, telehealth and at home visits. [phone] [facility] counseling [place] 20 locations [place], [place], [place], [place], [place], [place], [place], [facility], [place], [place], [place], [place], [place], [place], [facility], [employer], [place] ,[facility], [place], [place],[facility], south [place], [place], [facility], westsan [facility] healthcare corporation[facility], [place] www.[facility] [phone] Psychotherapy resources outside of [facility] are listed below [facility] Psychotherapy Web: https://www.TriOviz/ Support International Online Provider Directory https://Ozmota/ [facility] https://Microbial Solutions/ Environmental Support Solutions for Behavioral Health and Wellness Web: https://Yatra/ Benefex Group for Effective Living Web: https://PetSmart/ LifeStance Web: https://ArgoPay.Zwamy/location/s john/[place]/ [facility] Web: https://www.Shobutt [facility].or / [facility] Web: https://Organic Shop.org/ Recovery Resources Mental health and substance abuse help Web: https://www.coUrbanizes.org & RESOURCES Support International Direct peer support and connection to professional resources Non-Emergency Helpline Phone: / Text: [phone] Web: https://www..net/ Online Provider Directory: https://Ozmota/ Online Support Meetings: https://www..net/get-he lp/bij-jrtgrl-tetfnff-meetings/ ROBYN Baby and Collar Baster Services Web: https://www.Mobile Messenger/ MotherToKeegyby Expert information on medication use during and Text: [phone] Web: https://Egr Renovation.Business Texter/ NATIONAL REGISTRY FOR PSYCHIATRIC MEDICATIONS Currently studying the safety of antidepressants, ADHD medications and atypical antipsychotics taken during TO PARTICIPATE CALL TOLL-FREE: Web: https://womenentalhealth.org/re search/pregnancyregistry/ Support Groups: [facility]- Follow on facebook Baby Bistro support group led by [facility] department Resilient Mamas - Support Group [facility].org The POEM support group [phone] Www.poemonline.org Follow on facebook - MIKAELA aburto Online support meetings PSI https://www..net/get-he lp/hxk-xevdae-vnabmrt-meetings/ [facility] mommy and me virtual support group 11:30-1pm Support for mothers and new babies and toddlers Gary childbirth education: Childbirth @cc.org or call [phone] CRISIS: CRISIS HOTLINE [phone], 911 or go to the nearest . [facility] [phone] / [facility] [phone] https://www.[facility].org Crisis text line text the word HOME to 117724 [facility] [address] [facility] [address] www.QikServe.Zwamy Amira Menjivar clinical counseling [address] [address] www.Logopro [phone] Holding space psychotherapy Tg [place] FIELD CROP HARVEST CONTRACTOR EXECUTIVE OFFICER-S [address] [facility] www.PacketFront [phone]/ Fani [phone] They all offer virtual. All work with trauma Support groups Online support meetings PSI https://www..net/get-he lp/cop-gedhmn-cahxmvn-meetings/ Here are the support groups they offer: Support of parents of 1 to 4 years old children POEM ( Outreach and Encouragement for Moms) offers free support for mothers experiencing depression, anxiety, and other mood and anxiety disorders. Masks are recommended but not required. No pre-registration required. Babies in arms welcome. meetings now take place on the and Friday of each month Location: [facility] [address] [place] [address] Room 122 (library room) 7-8:00 p.m. When you enter the [facility] parking lot off of [address], the entrance door closest to our meeting room is on the front of the building toward the right. For those who are more comfortable with a virtual platform, POEM offers online support group options several days of the week. To register for an online group or to find out more about POEM, website at: https://aohio.org/get-help/arnot ogden medical centerxxps-trgqba-yclkig/poem-services/ offer a confidential helpline: private Facebook group is called MIKAELA Aburto Here are the groups they offer: Traumatic childbirth resources: Http://pattch.org/ https://www.ArgoPayhanGameotic.Zwamy/ Name Location (s) Phone # (s) Services Website [facility] Psychotherapy [address] [place], [place] - [phone]; [address] [phone] In-Person GROUPS INDIVIDUAL THERAPY MATERNAL-INFANT MENTAL HEALTH MEDICATION MANAGEMENT PLAY AND ART THERAPY TELETHERAPY https://www.InEdge.Zwamy/s ervices/ [facility] Priti VILLANUEVA? [address] [place], [place] [address] ? [address], [address] [place], [place] [id number] ? SORIA [address] [place], [place] [address]? Grief Support Groups Individual Grief Counseling Spiritual Care Memorial Events https://giovana.[facility].org/grief-services [facility] [address] [place], [place] [address]; ; Email: lula@Wave Technology Solutions Women's Mental Health; Couples Counseling; Trauma (EMDR); Stress Management; Mood and Anxiety Related Disorders- and much more https://www.Gingersoft Media/ LifeStance Numerous as they have contract providers: access website to find specific providers near you Counseling including CBT and EMDR as well as many more modalities; Medication Management; Telehealth and In-Person https://uStudio/ Environmental Support Solutions for Behavioral Health and Wellness [address] [place], [place] [address]; [phone] Personal, Family and Group Therapy; Psychological Testing and Diagnosis; Medication Management; Life and Career Coaching; Psychoanalysis; Literacy Testing; Yoga and Meditation https://Yatra/ Xactly Corp [facility] [address] [facility] [address], [place] [address] [address] ; [facility], [address] [place] [address]; Office # for both sites: Individual and Couples Counseling https://www.GetShopApp.Zwamy/ paymentinsurance.html OCD & Anxiety [facility] [address] [facility], [address], [place] [address]; Specialize in Cognitive-Behavioral Therapy (CBT) for the treatment of anxiety disorders across the lifespan. TELEHEALTH ONLY. https://ocdandanxietycenteroCanines Teaman & Company/faqs [facility] [address] [facility], 6th [place], [address] [place] [address] [facility] [place] [address] [place] [address] [place], [address] [place] [address] [place], [address], [id number] [address] [place], [address] [place] [address] [employer], [place], [id number] Transportation Services To minimize patient barriers, [facility] provides transportation services to patients who qualify. If you are unable to get to your appointment at any of our facilities, please let us know. Need help now? Stop by one of our walk-in clinics to establish behavioral health care. Counseling Indvidual, Group, Couples and Family Counseling and EMDR. Medication Management Case Management benefits applications housing assistance Substance abuse treatment Medication assisted treatment https://www.[facility].or g/mental-health/ [facility] OFFICE AT [facility] [address] [place] [address] [facility] [address] [place] [address] [facility] OFFICE [address] [place] [address] TO OFFICE (at [facility]) [address] [place] [address] [facility] SYRINGE EXCHANGE PROGRAM & HIV SCREENING [address] [place] [address] KNEELAND SYRINGE EXCHANGE PROGRAM [address] [place] [address] Behavioral Health Urgent Care: [facility] Counseling Indvidual and Group Medication Management Case Management benefits applications housing assistance Substance abuse treatment Medication assisted treatment Employment Services/ Job Training https://theSprint Nextelvaio.org/ Recovery Resources [address] [place], [place] [address]: P: [phone] [address] [facility], [address], [place] [address] P: [phone] Our services include: Addiction Mental Health Treatment Assessment Psychiatry Medical Care Employment Housing Drug and Alcohol Prevention HIV/AIDS Prevention https://www.recres.org/ [facility] [place] [address] [place] [address] [place] [address] [place] [address] [address] [place], [place] [address] [place] [address] [place] [address] [place] [address] [facility] [address] [place] [address] [place] [address] [place] [address] TMS Therapy/ Counseling Psychocological Testing for ADHD Medication Management In-Person/ Telemedicine https://www.Sparkcentral.com/twila ents-depression Memory & Psychological services [address] [place], [place] [address] Neuropsychological Testing For ADHD https://www.memoryandpsych.com/ The [facility] - Main Office [address] [place], [place] [id number] [address] [address] Providing fqwa-ra-akgr and telehealth services. Adult Case Management Community Education and Prevention Employment Outpatient Treatment - Counseling & Psychotherapy Psychiatric Services http://www.ccc.org/ [facility] [place] [address] [place] [address] Eleuterio [facility] [address] [place] [address] Virtual Appointments! Now offering safe and convenient virtual client appointments to anyone in [place]! Individual Therapy Couples/Relationship Therapy Trauma/EMDR Therapy Art Therapy Play Therapy Development Director Support: Parenting Skills, Parent Child Interaction Therapy, Parent Interaction Therapy Meditation Dietitian/Instructor Of Nursing Services Group Therapy Yoga https://www.Flinja. Zwamy/ Leda Campos [phone] Private Practice: Telehealth Only Specializes in EMDR for Trauma None SEQUENTIAL SCREENINGS The [facility] offers sequential screenings for women who are interested in screenings for chromosomal abnormalities and certain defects during a . The sequential screen combines ultrasound and blood tests to determine the risk of chromosomal abnormalities, including Down's Syndrome (Trisomy 21) and Trisomy 18, as well as open neural tube defects including spina bifida. Ultrasound examination is performed between 11 weeks and 13 weeks gestational age. Blood tests are drawn after the ultrasound and again later in the between 15 and 21 weeks gestational age. Please let your physician know if you are interested in this testing. It will require an appointment with our mechanical sound technician. This is not an ultrasound performed by a physician in our office during a routine visit. SIGNS AND SYMPTOMS OF LABOR 1. Contractions every 10 minutes or more often 2. Clear, pink, or brownish fluid (water) leaking from vagina 3. Feeling that baby is pushing down, pressure 4. Low, dull backache 5. Cramps that feel like a period 6. Cramps with or without diarrhea If you notice any of the above symptoms, contact our office at [phone] and ask to speak with a nurse. After hours, you can call doctors registry at [phone] OR call [facility] at [phone] and ask to have the doctor business operations manager paged. If you consider this an emergency, dial 9-5 or go to your nearest emergency department. NEED HELP? Are you dealing with a violent or abusive relationship? Are you a victim of rape or sexual assult? Call [facility] ([place]) 24 hour Crisis Hotline: 290.531.7488 or 913-567-8936. MANUAL Your Guide to a Healthy manual is now on-line. Visit [facility].org/HealthyPregna ncyGuide to download your free copy documented in this encounter [facility] 12-30-2024 Instructions Augustin Boyce APRN.CNP - 12/30/2024 1:41 PM EDT Images from the original note were not included. Please select the following link to access the [facility] Your Guide to a Healthy . www.Ccf.org/healthypregnancyguide MORNING SICKNESS IN by Tran Nunez M.D. for [employer] As you may already know, morning sickness can often be more appropriately called evening sickness or nqnlj-ilycrh-ks-the-day sickness. While there are the rupa few, most women (50-90%) experience some degree of nausea, some have vomiting, and a few develop a severe form of vomiting during called hyperemesis gravidarum. What causes the nausea and vomiting of ? We can't explain why some people feel fine and others are green for months. Even the same woman may feel vastly different in each . There is some relationship between nausea and the level of the hormone hCG. In twin pregnancies, and in other situations where the hCG is greater than expected, nausea and vomiting tend to be worse. In a destined for miscarriage, hCG levels tend to be low, and nausea is often less severe. This being said, a lack of nausea doesn't guarantee that the is destined for miscarriage. The fact that nausea and vomiting are often signs of a healthy can offer a silver lining in the dark cloud of miserable nausea. How long will the nausea last? Fortunately, for most women, nausea and vomiting are a first trimester event, peaking at week 9-10 and waning by week 14-16. When you are feeling bad the weeks can go by slowly but most moms do feel tremendously better by the middle of the . Whether morning sickness is a brief experience or lasts through most of the , there are treatments that can make the weeks or months more tolerable. What can you do about it? Diet: See what works for you. Try eating bland dry foods, and avoid fatty or spicy foods. It is okay to eat a less than perfectly balanced diet in the first trimester. Have your liquids separately from dry foods. Try sports drinks, water, clear juices, Familia-aid, or non-caffeinated tea. Avoid carbonated beverages that fill up your stomach. Try eating lots of little meals. If you tend to feel sick when you first wake up, leave crackers next to the bed for a quick snack before rising. Keeping healthy snacks with you all day to nibble when you feel queasy can sometimes even prevent nausea from starting. vitamins and nausea: Pre-geoffrey vitamins can sometimes worsen nausea in . While folate is necessary, especially early in the , it comes as a smaller pill that many people find more tolerable than the complete vitamin pill. Ask your practitioner if it is okay to temporarily replace vitamins and iron with just a folate pill if you find a significant worsening in the level of your nausea from the vitamins. Alternative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 Authorized Upward Bound Director. The Patient or Authorized Upward Bound Director has agreed to proceed with the sensitive examination. (Sensitive examination includes inspection and/or palpation of the breasts, pelvis, prostate and anorectal regions). PHYSICAL EXAM: BP 100/60 Ht 5' 3.189 (1.61m) Wt 114 lb (51.7kg) LMP 11/08/2024 BMI 20.07 kg/(m^2). GENERAL: pleasant in no apparent distress DERMATOLOGY: Normal, without lesions, non-icteric, and non-hirsute NECK: Supple, full range of motion, no adenopathy, and thyroid normal CHEST: Normal inspiratory effort BREAST: soft, non-tender, symmetric, no dominant mass, normal nipple-areolar complex, no lymphadenopathy, and no nipple discharge ABDOMEN: soft, non-tender, and no masses NEURO: alert and oriented x3,exam grossly non-focal PELVIS: External genitalia normal without lesions. Perineal body intact. No vaginal or cervical lesions. Cervix closed. Uterus 8 week size. No adnexal masses or tenderness. Clinical Pelvimetry: Pelvimetry clinically assessed as adequate Limited OB ultrasound exam: single intrauterine and positive cardiac activity SBIRT Renetta Kaufman was given the 4P's screening tool. Renetta answered No to all the questions, the result is determined to be negative. ASSESSMENT: 24 year old at 7w0d wks gestational age PLAN: 1) Patient oriented to practice. Patient given new OB orientation folder. Discussed nutrition, folic acid supplementation, dietary guidelines, exercise, smoking, alcohol, caffeine, and drug use. Discussed gestational weight gain guidelines. Discussed routine OB labs including STD/HIV. Discussed how to access Your guide to a health and the Accordion Repairer. Discussed hemoglobin electrophoresis. Patient: carrier screening ordered Patient has penicillin allergy, plan for allergy testing. Reviewed midwifery and car jockey services that are available. 2) Screening: Hemoglobin A1C: ordered Baby Aspirin: The patient has been counseled about the potential benefits of low dose aspirin in and our recommendation that this be offered to all patients, regardless of whether they meet the high risk criteria specified above. She Accepts Aneuploidy Screening: Discussed aneuploidy screening, nuchal translucency/first trimester early anatomy ultrasound and NIPT. The risks/benefits and limitations of NIPT/aneuploidy screening were reviewed including the potential for false negative and false positive results. The availability of genetic counseling was reviewed. Information on aneuploidy screening was provided. The patient chooses to proceed with First trimester early anatomy ultrasound (12-13w6d) Myriad Carrier Screening: Discussed myriad carrier screening. We discussed the availability of professional-society guided carrier screening and reviewed the conditions screened and limitations of screening. The availability of genetic counseling was reviewed. Information on carrier screening was provided. The patient Accepts 3) Patient offered option of Virtual Visits. Patient unsure. May consider in future. ACTIVE PROBLEM LIST Encounter for Supervision of High Risk in First Trimester, Antepartum - 12/30/2024 Comment: Care Checklist Vaccines: [] Flu vaccine [] declined [] RSV vaccine 32 0/7 - 36 03/12 (Jun - Nov) [] declined [] COVID vaccine [] declined [] TDaP -36 [] declined First trimester: [x] Dating US [] 1st tri labs [x] Pap smear [x] Carrier screening [] declined [] NIPT screening [] declined [x] First trimester anatomy scan [] declined [x] universal ASA ordered (start 12w-16w) [] declined [] M Power Consult [] not indicated [] declined Second trimester: [] Anatomy scan [] Mode of Delivery - [] Feeding - [] Pump ordered [] Diabetes screen [] CBC, RPR [] Behavioral Health Screening Third trimester (28-30 weeks): [] Consent [] Contraception [] Spindle Carver [] TeamBirth handout Third trimester (36-40 weeks): [] GBS [] Presentation - [] Scheduled [] yes - Hibiclens, pre-op instructions, CBC, T&S ordered [] no [] H&P [] Preferences worksheet [] Scanned in EMR Depression With Anxiety - 12/30/2024 Comment: December 30, 2024 Diagnosed since childhood. She has been off medication Prozac since October 2024. She believes she is doing well off Prozac. States she recently has initiated care with for counseling Emilie Beckford in [facility] due to some increasing anxiety. Patient states she has had suicidal thoughts in the past but none since age 14. Denies any psychiatric hospitalizations. Mental health resources provided. Augustin Boyce APRN.ALONZO Hx of Migraines - 12/30/2024 Comment: December 30, 2024 Was taking Propanolol and Imitrex as needed. No longer taking. Reviewed Magnesium Citrate to prevent migraines. Recommend Tylenol. Augustin Boyce APRN.CNP Nausea and Vomiting During - 12/30/2024 Comment: 12/30/24 Vitamin B6 and Unisom doses reviewed. To notify if prescription is needed. Augustin Boyce APRN.CNP Constipation During in First Trimester - 12/30/2024 Comment: December 30, 2024 Discussed Magnesium Citrate may help with constipation. Safe medication list provided. Augustin Boyce APRN.CNP With Uncertain Dates in First Trimester - 12/30/2024 Comment: December 30, 2024 POCUS not consistent with LMP. Confirm KELLI with NT. Augustin Boyce APRN.CNP Follow up in 4 weeks or sooner prn. Plan for NT scan between 12w0d and 13w6d gestation. Augustin Boyce APRN.MANUFACTURING OPERATIONS MANAGER documented in this encounter [facility] 12-24-2024 Note HNO ID: [id number] Author: PEREZ FRENCH APRN.CNP Service: ? Author Type: Nurse Practitioner Type: Progress Notes Filed: 12/24/2024 19:33 Note Text: LWBS. [facility] 12-24-2024 History of Present illness Narrative Images from the original note were not included. LWBS. documented in this encounter [facility] 12-13-2024 Note HNO ID: [id number] Author: AAYUSH DEMPSEY APRN.ALONZO Service: ? Author Type: Nurse Practitioner Type: Progress Notes Filed: 12/13/2024 21:14 Note Text: This note was created using [employer]. Subjective Renetta Kaufman is a 24 year old female here today to establish care. She moved here from [place]. She reports being newly . She has appt with with VANESSA Boyce on 12/16/[address] Mars on 01/17/25. She reports doing a test a couple weeks ago. She reports seeing primary care once a year. She was seeing PCP Dr Cespedes. She reports last real period was 10/18/24. States she had 2 days of spotting 11/12/24. She did test on 11/25/24 and it was negative. She did repeat test on 12/04/24 which was positive. She is not currently working. She was working for [employer] venue in [place]. Anxiety and depression: states treated in the past. She has been on zoloft and prozac. She reports she does not feel she needs anything at this. Preventative: she does not drink alcohol or smoke tobacco. She does yoga 3-4x/wk. ALLERGIES No Known Allergies Current Outpatient Medications Medication Sig Dispense Refill no115/iron/folic acid ( 19 ORAL) Take by mouth. No current facility-administered medications for this visit. There is no problem list on file for this patient. PAST MEDICAL HISTORY Diagnosis Date Anxiety Depression History reviewed. No pertinent surgical history. Social History Tobacco Use Smoking status: Never Smokeless tobacco: Never Vaping Use Vaping status: Never Used Substance Use Topics Alcohol use: Never Drug use: Not Currently Family History Problem Relation Age of Onset other (gestational diabetes) Mother Diabetes Maternal Grandfather Heart Attack Maternal Grandfather Stroke Maternal Grandfather Systemic Lupus Erythematosus Paternal Grandmother . Review of Systems Constitutional: Negative for activity change, appetite change, chills, diaphoresis, fatigue, fever and unexpected weight change. HENT: Positive for sinus pressure and sneezing. Negative for congestion, drooling, ear pain, postnasal drip, rhinorrhea, sinus pain, sore throat and trouble swallowing. Eyes: Negative for photophobia and visual disturbance. Respiratory: Negative for cough, chest tightness, shortness of breath and wheezing. Cardiovascular: Negative for chest pain, palpitations and leg swelling. Gastrointestinal: Positive for nausea. Negative for abdominal pain, blood in stool, constipation, diarrhea and vomiting. She reports nausea x 2-3 days Endocrine: Negative for cold intolerance, heat intolerance, polydipsia, polyphagia and polyuria. States feel more cold recently Genitourinary: Negative for decreased urine volume, difficulty urinating, dysuria, frequency, hematuria, pelvic pain, urgency, vaginal bleeding, vaginal discharge and vaginal pain. Musculoskeletal: Negative for arthralgias, back pain, myalgias and neck pain. Skin: Negative for color change and rash. Allergic/Immunologic: Negative for environmental allergies and food allergies. Neurological: Negative for dizziness, seizures, weakness, numbness and headaches. Hematological: Negative. Negative for adenopathy. Does not bruise/bleed easily. Psychiatric/Behavioral: Negative for dysphoric mood, sleep disturbance and suicidal ideas. The patient is not nervous/anxious. Objective BP 116/60 Pulse 63 Temp 36.5 ?C (97.7 ?F) Resp 16 Ht 158.1 cm (5' 2.25) Wt 50.3 kg (111 lb) SpO2 99% BMI 20.14 kg/m? Physical Exam Vitals and nursing note reviewed. Constitutional: General: She is not in acute distress. Appearance: Normal appearance. She is not ill-appearing or diaphoretic. HENT: Head: Normocephalic and atraumatic. Right Ear: External ear normal. Left Ear: External ear normal. Nose: Nose normal. No congestion or rhinorrhea. Mouth/Throat: Pharynx: No oropharyngeal exudate. Eyes: General: Lids are normal. No scleral icterus. Right eye: No discharge. Left eye: No discharge. Conjunctiva/sclera: Conjunctivae normal. Pupils: Pupils are equal, round, and reactive to light. Neck: Vascular: Normal carotid pulses. No carotid bruit. Cardiovascular: Rate and Rhythm: Normal rate and regular rhythm. Pulses: Normal pulses. Heart sounds: Normal heart sounds, S1 normal and S2 normal. No murmur heard. No friction rub. No gallop. Pulmonary: Effort: Pulmonary effort is normal. No accessory muscle usage or respiratory distress. Breath sounds: Normal breath sounds. No decreased breath sounds, wheezing, rhonchi or rales. Chest: Chest wall: No tenderness. Abdominal: General: Bowel sounds are normal. There is no distension. Palpations: Abdomen is soft. Tenderness: There is no abdominal tenderness. Musculoskeletal: General: No tenderness. Normal range of motion. Cervical back: Normal range of motion and neck supple. Right lower leg: No shanon (more content not included)... [facility] 12-13-2024 History of Present illness Narrative This note was created using [employer]. Subjective Renetta Kaufman is a 24 year old female here today to establish care. She moved here from [place]. She reports being newly . She has appt with with VANESSA Boyce on 12/16/[address] Mars on 01/17/25. She reports doing a test a couple weeks ago. She reports seeing primary care once a year. She was seeing PCP Dr Cespedes. She reports last real period was 10/18/24. States she had 2 days of spotting 11/12/24. She did test on 11/25/24 and it was negative. She did repeat test on 12/04/24 which was positive. She is not currently working. 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 Anxiety and depression: states treated in the past. She has been on zoloft and prozac. She reports she does not feel she needs anything at this. Preventative: she does not drink alcohol or smoke tobacco. She does yoga 3-4x/wk. ALLERGIES No Known Allergies Current Outpatient Medications Medication Sig Dispense Refill no115/iron/folic acid ( 19 ORAL) Take by mouth. No current facility-administered medications for this visit. There is no problem list on file for this patient. PAST MEDICAL HISTORY Diagnosis Date Anxiety Depression History reviewed. No pertinent surgical history. Social History Tobacco Use Smoking status: Never Smokeless tobacco: Never Vaping Use Vaping status: Never Used Substance Use Topics Alcohol use: Never Drug use: Not Currently Family History Problem Relation Age of Onset other (gestational diabetes) Mother Diabetes Maternal Grandfather Heart Attack Maternal Grandfather Stroke Maternal Grandfather Systemic Lupus Erythematosus Paternal Grandmother . Review of Systems Constitutional: Negative for activity change, appetite change, chills, diaphoresis, fatigue, fever and unexpected weight change. HENT: Positive for sinus pressure and sneezing. Negative for congestion, drooling, ear pain, postnasal drip, rhinorrhea, sinus pain, sore throat and trouble swallowing. Eyes: Negative for photophobia and visual disturbance. Respiratory: Negative for cough, chest tightness, shortness of breath and wheezing. Cardiovascular: Negative for chest pain, palpitations and leg swelling. Gastrointestinal: Positive for nausea. Negative for abdominal pain, blood in stool, constipation, diarrhea and vomiting. She reports nausea x 2-3 days Endocrine: Negative for cold intolerance, heat intolerance, polydipsia, polyphagia and polyuria. States feel more cold recently Genitourinary: Negative for decreased urine volume, difficulty urinating, dysuria, frequency, hematuria, pelvic pain, urgency, vaginal bleeding, vaginal discharge and vaginal pain. Musculoskeletal: Negative for arthralgias, back pain, myalgias and neck pain. Skin: Negative for color change and rash. Allergic/Immunologic: Negative for environmental allergies and food allergies. Neurological: Negative for dizziness, seizures, weakness, numbness and headaches. Hematological: Negative. Negative for adenopathy. Does not bruise/bleed easily. Psychiatric/Behavioral: Negative for dysphoric mood, sleep disturbance and suicidal ideas. The patient is not nervous/anxious. Objective BP 116/60 Pulse 63 Temp 36.5 C (97.7 F) Resp 16 Ht 158.1 cm (5' 2.25) Wt 50.3 kg (111 lb) SpO2 99% BMI 20.14 kg/m Physical Exam Vitals and nursing note reviewed. Constitutional: General: She is not in acute distress. Appearance: Normal appearance. She is not ill-appearing or diaphoretic. HENT: Head: Normocephalic and atraumatic. Right Ear: External ear normal. Left Ear: External ear normal. Nose: Nose normal. No congestion or rhinorrhea. Mouth/Throat: Pharynx: No oropharyngeal exudate. Eyes: General: Lids are normal. No scleral icterus. Right eye: No discharge. Left eye: No discharge. Conjunctiva/sclera: Conjunctivae normal. Pupils: Pupils are equal, round, and reactive to light. Neck: Vascular: Normal carotid pulses. No carotid bruit. Cardiovascular: Rate and Rhythm: Normal rate and regular rhythm. Pulses: Normal pulses. Heart sounds: Normal heart sounds, S1 normal and S2 normal. No murmur heard. No friction rub. No gallop. Pulmonary: Effort: Pulmonary effort is normal. No accessory muscle usage or respiratory distress. Breath sounds: Normal breath sounds. No decreased breath sounds, wheezing, rhonchi or rales. Chest: Chest wall: No tenderness. Abdominal: General: Bowel sounds are normal. There is no distension. Palpations: Abdomen is soft. Tenderness: There is no abdominal tenderness. Musculoskeletal: General: No tenderness. Normal range of motion. Cervical back: Normal range of motion and neck supple. Right lower leg: No edema. Left lower leg: No edema. Skin: General: Skin is warm and dry. Coloration: Skin is not pale. Findings: No erythema or rash. Nails: There is no clubbing. Neurological: General: No focal deficit present. Mental Status: She is alert and oriented to person, place, and time. Motor: No abnormal muscle tone. Coordination: Coordination normal. Deep Tendon Reflexes: Reflexes are normal and symmetric. Psychiatric: Attention and Perception: Attention and perception normal. Mood and Affect: Mood normal. Speech: Speech normal. Behavior: Behavior normal. Behavior is cooperative. Thought Content: Thought content normal. Cognition and Memory: Cognition and memory normal. Judgment: Judgment normal. Assessment and Plan ASSESSMENT/PLAN: 1. Encounter for medical examination to establish care - ICD9: V70.9, ICD10: Z00.00 (primary diagnosis) - Counseled on healthy diet and regular exercise - Recommend vitamin containing 0.4 mg of folic acid - Check annual GC/Chlamydia for sexually active under 25 or 25+ at increased risk 2. Screening for STD (sexually transmitted disease) - ICD9: V74.5, ICD10: Z11.3 - GONORRHEA/CHLAMYDIA NAAT 3. Screening for HIV (human immunodeficiency virus) - ICD9: V73.89, ICD10: Z11.4 - HIV 1/2 COMBO WITH REFLEX TO DIFFERENTIATION 4. Special screening examination for viral disease - ICD9: V73.99, ICD10: Z11.59 - HEPATITIS C ANTIBODY IA WITH CONFIRMATION 5. Screening for deficiency anemia - ICD9: V78.1, ICD10: Z13.0 - COMPLETE BLOOD COUNT 6. Encounter for screening for diabetes mellitus - ICD9: V77.1, ICD10: Z13.1 - COMPREHENSIVE METABOLIC PANEL 7. Screening for thyroid disorder - ICD9: V77.0, ICD10: Z13.29 - THYROID STIMULATING HORMONE 8. Screening for lipid disorders - ICD9: V77.91, ICD10: Z13.220 - LIPID PANEL BASIC - THYROID STIMULATING HORMONE Aayush Dempsey APRN.MANUFACTURING OPERATIONS MANAGER documented in this encounter [facility] Evaluation note Diagnosis Encounter for medical examination to establish care- Primary Screening for STD (sexually transmitted disease) Screening examination for venereal disease Screening for HIV (human immunodeficiency virus) Special screening examination for other specified viral diseases Special screening examination for viral disease Special screening examination for unspecified viral disease Screening for deficiency anemia Screening for other and unspecified deficiency anemia Encounter for screening for diabetes mellitus Screening for diabetes mellitus Screening for thyroid disorder Screening for lipid disorders [facility] Positive test- Primary examination or test, positive result [facility] Diagnosis Treatment not available- Primary Procedure not carried out for other reasons [facility] Encounter for supervision of high risk in first trimester, antepartum- Primary 7 weeks gestation of state, incidental with uncertain dates in first trimester Depression with anxiety Dysthymic disorder Hx of migraines Personal history of other disorders of nervous system and sense organs Nausea and vomiting during Constipation during in first trimester [facility] Encounter for supervision of high risk in first trimester, antepartum (HCC)- Primary 9 weeks gestation of (HCC) state, incidental Depression with anxiety Dysthymic disorder Vaginal discharge during in first trimester ([facility]) [facility]inary [facility] 14 [facility] of ([facility])- Primary state, incidental Encounter for supervision of high risk in second trimester, antepartum ([facility]) Depression with anxiety Dysthymic disorder [facility] Encounter for supervision of normal first in second trimester ([facility])- Primary Supervision of normal first 18 weeks gestation of ([facility]) state, incidental Constipation during in first trimester ([facility]) Nausea and vomiting during ([facility]) Depression with anxiety Dysthymic disorder with uncertain dates in first trimester ([facility]) [facility] Diagnosis Muscle spasm- Primary Spasm of muscle Constipation during in first trimester ([facility]) Irritable bowel syndrome with constipation Irritable bowel syndrome [facility] Diagnosis Constipation during in first trimester ([facility])- Primary Irritable bowel syndrome with constipation Irritable bowel syndrome Muscle spasm Spasm of muscle [facility] Diagnosis 20 weeks gestation of ([facility])- Primary state, incidental Encounter for supervision of normal first in second trimester ([facility]) Supervision of normal first Depression with anxiety Dysthymic disorder [facility] Diagnosis Encounter for supervision of normal first in second trimester ([facility])- Primary Supervision of normal first 14 weeks gestation of ([facility]) state, incidental Encounter for supervision of high risk in second trimester, antepartum ([facility]) [facility] Diagnosis Encounter for supervision of normal first in second trimester ([facility])- Primary Supervision of normal first 22 weeks gestation of ([facility]) state, incidental Hemorrhoids, unspecified hemorrhoid type with uncertain dates in first trimester ([facility]) Depression with anxiety Dysthymic disorder Screening for diabetes mellitus [facility] Diagnosis Constipation during in first trimester ([facility])- Primary Irritable bowel syndrome with constipation Irritable bowel syndrome Muscle spasm Spasm of muscle [facility] Diagnosis External hemorrhoids without complication- Primary External hemorrhoids without mention of complication Irritable bowel syndrome with constipation Irritable bowel syndrome 23 weeks gestation of ([facility]) state, incidental [facility] Diagnosis 14 weeks gestation of ([facility])- Primary state, incidental Encounter for supervision of high risk in second trimester, antepartum ([facility]) Encounter for supervision of normal first in second trimester ([facility])- Primary Supervision of normal first 14 weeks gestation of ([facility]) state, incidental Encounter for supervision of high risk in second trimester, antepartum ([facility]) [facility] Diagnosis Anal or rectal pain- Primary External hemorrhoids without complication External hemorrhoids without mention of complication [facility] Diagnosis Encounter for supervision of normal first in second trimester ([facility])- Primary Supervision of normal first External hemorrhoids without complication External hemorrhoids without mention of complication Anal or rectal pain 26 weeks gestation of ([facility]) state, incidental Screening for diabetes mellitus [facility] Diagnosis Constipation during in first trimester ([facility])- Primary Irritable bowel syndrome with constipation Irritable bowel syndrome Muscle spasm Spasm of muscle [facility] Diagnosis Hemorrhoid thrombosis- Primary Unspecified thrombosed hemorrhoids Constipation during in first trimester ([facility]) Irritable bowel syndrome with constipation Irritable bowel syndrome [facility] Diagnosis Constipation during in first trimester ([facility])- Primary Irritable bowel syndrome with constipation Irritable bowel syndrome Muscle spasm Spasm of muscle [facility] Diagnosis Encounter for supervision of normal first in third trimester ([facility])- Primary Supervision of normal first Vaginal itching Pruritus of genital organs 28 weeks gestation of ([facility]) state, incidental Depression with anxiety Dysthymic disorder [facility] Diagnosis Hemorrhoid thrombosis- Primary Unspecified thrombosed hemorrhoids Constipation during in first trimester ([facility]) [facility] Diagnosis 30 weeks gestation of ([facility])- Primary state, incidental Encounter for supervision of normal first in third trimester ([facility]) Supervision of normal first Depression with anxiety Dysthymic disorder Frequent urination Urinary frequency Heartburn during in third trimester ([facility]) [facility] Diagnosis Encounter for supervision of normal first in third trimester ([facility])- Primary Supervision of normal first 32 weeks gestation of (HCC) state, incidental Depression with anxiety Dysthymic disorder Heartburn during in third trimester (HCC) Constipation during in third trimester (HCC) documented in [facility] Summary Purpose Family History No Family History Records FoundNo Family History Records FoundNo Family History Records Found Advance Directives No Advanced Directives Records FoundNo Advanced Directives Records FoundNo Advanced Directives Records Found Additional Source Comments Source Comments (unrecognize d section and content) In the event this informatio n is protected by the Federal Confidentiality of Alcohol and Drug Abuse Patient Records regulations: The Federal rules restrict any use of the information to criminally investigate or prosecute any alcohol or drug abuse patient.[facility] Center[facility] the event this information is protected by the Federal Confidentiality of Alcohol and Drug Abuse Patient Records regulations: The Federal rules restrict any use of the information to criminally investigate or prosecute any alcohol or drug abuse patient.[facility] CenterIn the event this information is protected by the Federal Confidentiality of Alcohol and Drug Abuse Patient Records regulations: The Federal rules restrict any use of the information to criminally investigate or prosecute any alcohol or drug abuse patient.[facility] CenterIn the event this information is protected by the Federal Confidentiality of Alcohol and Drug Abuse Patient Records regulations: The Federal rules restrict any use of the information to criminally investigate or prosecute any alcohol or drug abuse patient.[facility] CenterIn the event this information is protected by the Federal Confidentiality of Alcohol and Drug Abuse Patient Records regulations: The Federal rules restrict any use of the information to criminally investigate or prosecute any alcohol or drug abuse patient.[facility] CenterIn the event this information is protected by the Federal Confidentiality of Alcohol and Drug Abuse Patient Records regulations: The Federal rules restrict any use of the information to criminally investigate or prosecute any alcohol or drug abuse patient.[facility] CenterIn the event this information is protected by the Federal Confidentiality of Alcohol and Drug Abuse Patient Records regulations: The Federal rules restrict any use of the information to criminally investigate or prosecute any alcohol or drug abuse patient.[facility] CenterIn the event this information is protected by the Federal Confidentiality of Alcohol and Drug Abuse Patient Records regulations: The Federal rules restrict any use of the information to criminally investigate or prosecute any alcohol or drug abuse patient.[facility] CenterIn the event this information is protected by the Federal Confidentiality of Alcohol and Drug Abuse Patient Records regulations: The Federal rules restrict any use of the information to criminally investigate or prosecute any alcohol or drug abuse patient.[facility] CenterIn the event this information is protected by the Federal Confidentiality of Alcohol and Drug Abuse Patient Records regulations: The Federal rules restrict any use of the information to criminally investigate or prosecute any alcohol or drug abuse patient.[facility] CenterIn the event this information is protected by the Federal Confidentiality of Alcohol and Drug Abuse Patient Records regulations: The Federal rules restrict any use of the information to criminally investigate or prosecute any alcohol or drug abuse patient.[facility] CenterIn the event this information is protected by the Federal Confidentiality of Alcohol and Drug Abuse Patient Records regulations: The Federal rules restrict any use of the information to criminally investigate or prosecute any alcohol or drug abuse patient.[facility] CenterIn the event this information is protected by the Federal Confidentiality of Alcohol and Drug Abuse Patient Records regulations: The Federal rules restrict any use of the information to criminally investigate or prosecute any alcohol or drug abuse patient.[facility] CenterIn the event this information is protected by the Federal Confidentiality of Alcohol and Drug Abuse Patient Records regulations: The Federal rules restrict any use of the information to criminally investigate or prosecute any alcohol or drug abuse patient.[facility] CenterIn the event this information is protected by the Federal Confidentiality of Alcohol and Drug Abuse Patient Records regulations: The Federal rules restrict any use of the information to criminally investigate or prosecute any alcohol or drug abuse patient.[facility] CenterIn the event this information is protected by the Federal Confidentiality of Alcohol and Drug Abuse Patient Records regulations: The Federal rules restrict any use of the information to criminally investigate or prosecute any alcohol or drug abuse patient.[facility] CenterIn the event this information is protected by the Federal Confidentiality of Alcohol and Drug Abuse Patient Records regulations: The Federal rules restrict any use of the information to criminally investigate or prosecute any alcohol or drug abuse patient.[facility] CenterIn the event this information is protected by the Federal Confidentiality of Alcohol and Drug Abuse Patient Records regulations: The Federal rules restrict any use of the information to criminally investigate or prosecute any alcohol or drug abuse patient.[facility] CenterIn the event this information is protected by the Federal Confidentiality of Alcohol and Drug Abuse Patient Records regulations: The Federal rules restrict any use of the information to criminally investigate or prosecute any alcohol or drug abuse patient.[facility] CenterIn the event this information is protected by the Federal Confidentiality of Alcohol and Drug Abuse Patient Records regulations: The Federal rules restrict any use of the information to criminally investigate or prosecute any alcohol or drug abuse patient.[facility] CenterIn the event this information is protected by the Federal Confidentiality of Alcohol and Drug Abuse Patient Records regulations: The Federal rules restrict any use of the information to criminally investigate or prosecute any alcohol or drug abuse patient.[facility] CenterIn the event this information is protected by the Federal Confidentiality of Alcohol and Drug Abuse Patient Records regulations: The Federal rules restrict any use of the information to criminally investigate or prosecute any alcohol or drug abuse patient.[facility] CenterIn the event this information is protected by the Federal Confidentiality of Alcohol and Drug Abuse Patient Records regulations: The Federal rules restrict any use of the information to criminally investigate or prosecute any alcohol or drug abuse patient.[facility] CenterIn the event this information is protected by the Federal Confidentiality of Alcohol and Drug Abuse Patient Records regulations: The Federal rules restrict any use of the information to criminally investigate or prosecute any alcohol or drug abuse patient.[facility] CenterIn the event this information is protected by the Federal Confidentiality of Alcohol and Drug Abuse Patient Records regulations: The Federal rules restrict any use of the information to criminally investigate or prosecute any alcohol or drug abuse patient.[facility] CenterIn the event this information is protected by the Federal Confidentiality of Alcohol and Drug Abuse Patient Records regulations: The Federal rules restrict any use of the information to criminally investigate or prosecute any alcohol or drug abuse patient.[facility] CenterIn the event this information is protected by the Federal Confidentiality of Alcohol and Drug Abuse Patient Records regulations: The Federal rules restrict any use of the information to criminally investigate or prosecute any alcohol or drug abuse patient.[facility] CenterIn the event this information is protected by the Federal Confidentiality of Alcohol and Drug Abuse Patient Records regulations: The Federal rules restrict any use of the information to criminally investigate or prosecute any alcohol or drug abuse patient.[facility] CenterIn the event this information is protected by the Federal Confidentiality of Alcohol and Drug Abuse Patient Records regulations: The Federal rules restrict any use of the information to criminally investigate or prosecute any alcohol or drug abuse patient.[facility] CenterIn the event this information is protected by the Federal Confidentiality of Alcohol and Drug Abuse Patient Records regulations: The Federal rules restrict any use of the information to criminally investigate or prosecute any alcohol or drug abuse patient.[facility] CenterIn the event this information is protected by the Federal Confidentiality of Alcohol and Drug Abuse Patient Records regulations: The Federal rules restrict any use of the information to criminally investigate or prosecute any alcohol or drug abuse patient.[facility] CenterIn the event this information is protected by the Federal Confidentiality of Alcohol and Drug Abuse Patient Records regulations: The Federal rules restrict any use of the information to criminally investigate or prosecute any alcohol or drug abuse patient.[facility] CenterIn the event this information is protected by the Federal Confidentiality of Alcohol and Drug Abuse Patient Records regulations: The Federal rules restrict any use of the information to criminally investigate or prosecute any alcohol or drug abuse patient.[facility] CenterIn the event this information is protected by the Federal Confidentiality of Alcohol and Drug Abuse Patient Records regulations: The Federal rules restrict any use of the information to criminally investigate or prosecute any alcohol or drug abuse patient.[facility] CenterIn the event this information is protected by the Federal Confidentiality of Alcohol and Drug Abuse Patient Records regulations: The Federal rules restrict any use of the information to criminally investigate or prosecute any alcohol or drug abuse patient.[facility] CenterIn the event this information is protected by the Federal Confidentiality of Alcohol and Drug Abuse Patient Records regulations: The Federal rules restrict any use of the information to criminally investigate or prosecute any alcohol or drug abuse patient.[facility] Reason for Visit (unrecogniz ed section and content) Reason Comments PT Progress Note Specialty Diagnoses / Procedures Referred By Debi lynn Referred To Contact PHYSICAL THERAPY Diagnoses Constipation during in first trimester (HCC) Irritable bowel syndrome with constipation Procedures PHYSICAL THERAPY EVALUATION HIGH COMPLEX 45 MINS Oriana Camacho MD [address] [place] [address] Phone: tel: fax: [facility] [address] [place] [address] Phone: tel: fax: Referral ID Status Reason Start Date Expiration Date Visits Requested Visits Authorized [id number] Authorized Auto-Generat ed Referral 01/27/2025 10/05/2025 99 99 Reason Comments Physical Therapy Specialty Diagnoses / Procedures Referred By Debi lynn Referred To Contact PHYSICAL THERAPY Diagnoses Constipation during in first trimester (HCC) Irritable bowel syndrome with constipation Procedures CONSULT TO PHYSICAL THERAPY PHYSICAL THERAPY EVALUATION HIGH COMPLEX 45 MINS Oriana Camacho MD [address] [place] [address] Phone: tel: fax: [facility] [address] [place] [address] Phone: tel: fax: Reason Comments New Patient Establish care previ ous [place] was [place] [facility] [place] Is will be seeing AIRCRAFT ENGINE MECHANIC later this week Well Adult Reason Comments Appointment Cancelled Reason Onset Date Comments Results 12/27/2024 Reason Comments Initial OB Visit Reason Onset Date Comments Care 01/06/2025 Reason Onset Date Comments Care 02/09/2025 Reason Onset Date Comments Care 03/09/2025 Reason Comments PT Eval Reason Onset Date Comments Care 03/28/2025 Reason Comments US Specialty Diagnoses / Procedures Referred By Debi lynn Referred To Contact [facility] Diagnoses 14 weeks gestation of (HCC) Encounter for supervision of high risk in second trimester, antepartum (HCC) Procedures OBSTETRIC ULTRASOUND WHI US PREG UTERUS AFTER 1ST TRIMEST GESTATION Shawna Wilson, KIP.CN [address] [place] [address] Phone: tel: fax: [facility] [address] [place] [id number] Referral ID Status Reason Start Date Expiration Date V isits Requested Visits Authorized [id number] Closed Auto-Generate d Referral 02/14/2025 02/14/2026 1 1 Reason Onset Date Comments Care 04/05/2025 Reason Comments Rectal Problem Reason Onset Date Comments Appointment 02/14/2025 Reason Comments Hemorrhoids Reason Onset Date Comments Care 05/05/2025 Reason Comments Care Reason Comments Follow Up Hemorrhoids Reason Onset Date Comments Care 06/01/2025 Reason Comments Patient Update Appointment Reason Comments Breast Pump Reason Onset Date Comments Care 06/15/2025 Care Teams (unrecognized sec tion and content) Software Release Engineer Relationship Specialty Start Date End Date Aayush Dempsey, OCCUPATIONAL THERAPY ASST.MANUFACTURING OPERATIONS MANAGER [address] [place] [address] PCP - General Internal Medicine 12/13/24 Software Release Engineer Relationship Specialty Start Date End Date Aayush Dempsey, OCCUPATIONAL THERAPY ASST.MANUFACTURING OPERATIONS MANAGER [address] [place] [address] PCP - General Internal Medicine 12/13/24 Software Release Engineer Relationship Specialty Start Date End Date Aayush Dempsey, OCCUPATIONAL THERAPY ASST.MANUFACTURING OPERATIONS MANAGER [address] [place] [address] PCP - General Internal Medicine 12/13/24 Software Release Engineer Relationship Specialty Start Date End Date Aayush Dempsey, OCCUPATIONAL THERAPY ASST.MANUFACTURING OPERATIONS MANAGER [address] [place] [address] PCP - General Internal Medicine 12/13/24 Software Release Engineer Relationship Specialty Start Date End Date Aayush Dempsey, OCCUPATIONAL THERAPY ASST.MANUFACTURING OPERATIONS MANAGER [address] [place] [address] PCP - General Internal Medicine 12/13/24 Software Release Engineer Relationship Specialty Start Date End Date Aayush Dempsey, OCCUPATIONAL THERAPY ASST.MANUFACTURING OPERATIONS MANAGER [address] [place] [address] PCP - General Internal Medicine 12/13/24 Software Release Engineer Relationship Specialty Start Date End Date Aayush Dempsey, OCCUPATIONAL THERAPY ASST.MANUFACTURING OPERATIONS MANAGER [address] [place] [address] PCP - General Internal Medicine 12/13/24 Software Release Engineer Relationship Specialty Start Date End Date Aayush Dempsey, OCCUPATIONAL THERAPY ASST.MANUFACTURING OPERATIONS MANAGER [address] [place] [address] PCP - General Internal Medicine 12/13/24 Software Release Engineer Relationship Specialty Start Date End Date Aayush Dempsey, OCCUPATIONAL THERAPY ASST.MANUFACTURING OPERATIONS MANAGER [address] [place] [address] PCP - General Internal Medicine 12/13/24 Software Release Engineer Relationship Specialty Start Date End Date Aayush Dempsey, OCCUPATIONAL THERAPY ASST.MANUFACTURING OPERATIONS MANAGER [address] [place] [address] PCP - General Internal Medicine 12/13/24 Software Release Engineer Relationship Specialty Start Date End Date Aayush Dempsey, OCCUPATIONAL THERAPY ASST.MANUFACTURING OPERATIONS MANAGER [address] [place] [address] PCP - General Internal Medicine 12/13/24 Software Release Engineer Relationship Specialty Start Date End Date Aayush Dempsey, OCCUPATIONAL THERAPY ASST.MANUFACTURING OPERATIONS MANAGER [address] [place] [address] PCP - General Internal Medicine 12/13/24 Software Release Engineer Relationship Specialty Start Date End Date Aayush Dempsey, OCCUPATIONAL THERAPY ASST.MANUFACTURING OPERATIONS MANAGER [address] [place] [address] PCP - General Internal Medicine 12/13/24 Software Release Engineer Relationship Specialty Start Date End Date Aayush Dempsey, OCCUPATIONAL THERAPY ASST.MANUFACTURING OPERATIONS MANAGER [address] [place] [address] PCP - General Internal Medicine 12/13/24 Software Release Engineer Relationship Specialty Start Date End Date Aayush Dempsey, OCCUPATIONAL THERAPY ASST.MANUFACTURING OPERATIONS MANAGER [address] [place] [address] PCP - General Internal Medicine 12/13/24 Software Release Engineer Relationship Specialty Start Date End Date Aayush Dempsey, OCCUPATIONAL THERAPY ASST.MANUFACTURING OPERATIONS MANAGER [address] [place] [address] PCP - General Internal Medicine 12/13/24 Software Release Engineer Relationship Specialty Start Date End Date Aayush Dempsey, OCCUPATIONAL THERAPY ASST.MANUFACTURING OPERATIONS MANAGER [address] [place] [address] PCP - General Internal Medicine 12/13/24 Software Release Engineer Relationship Specialty Start Date End Date Aayush Dempsey, OCCUPATIONAL THERAPY ASST.MANUFACTURING OPERATIONS MANAGER [address] [place] [address] PCP - General Internal Medicine 12/13/24 Software Release Engineer Relationship Specialty Start Date End Date Aayush Dempsey, OCCUPATIONAL THERAPY ASST.MANUFACTURING OPERATIONS MANAGER [address] [place] [address] PCP - General Internal Medicine 12/13/24 Software Release Engineer Relationship Specialty Start Date End Date Aayush Dempsey, OCCUPATIONAL THERAPY ASST.MANUFACTURING OPERATIONS MANAGER [address] [place] [address] PCP - General Internal Medicine 12/13/24 Software Release Engineer Relationship Specialty Start Date End Date Aayush Dempsey, OCCUPATIONAL THERAPY ASST.MANUFACTURING OPERATIONS MANAGER [address] [place] [address] PCP - General Internal Medicine 12/13/24 Software Release Engineer Relationship Specialty Start Date End Date Aayush Dempsey, OCCUPATIONAL THERAPY ASST.MANUFACTURING OPERATIONS MANAGER [address] [place] [address] PCP - General Internal Medicine 12/13/24 Software Release Engineer Relationship Specialty Start Date End Date Aayush Dempsey, OCCUPATIONAL THERAPY ASST.MANUFACTURING OPERATIONS MANAGER [address] [place] [address] PCP - General Internal Medicine 12/13/24 Software Release Engineer Relationship Specialty Start Date End Date Aayush Dempsey, OCCUPATIONAL THERAPY ASST.MANUFACTURING OPERATIONS MANAGER [address] [facility] [place] [id number] PCP - General Internal Medicine 12/13/24 Software Release Engineer Relationship Specialty Start Date End Date Aayush Dempsey, OCCUPATIONAL THERAPY ASST.MANUFACTURING OPERATIONS MANAGER [address] [facility] [place] [phone] PCP - General Internal Medicine 12/13/24 INFORMATION SOURCE (unrecogn ized section and content) DATE CREATED AUTHOR 06/24/2025 [facility] DATE CREATED AUTHOR AUTHOR'S ORGANIZ ATION 06/27/2025 [facility] DATE CREATED AUTHOR AUTHOR'S ORGANIZ ATION 07/09/2025 [facility] FOR RECORDS PERTAINING TO PATIENTS WHO ARE OR HAVE BEEN ENROLLED IN A CHEMICAL DEPENDENCY/SUBSTANCEABUSE PROGRAM, SOME INFORMATION MAY BE OMITTED. This clinical summary was aggregated from multiple sources. Caution should be exercised in using it in the provision of clinical care. This summary normalizes information from multiple sources, and as a consequence, information in this document may materially change the coding, format and clinical context of patient data. In addition, data may be omitted in some cases. CLINICAL DECISIONS SHOULD BE BASED ON THE PRIMARY CLINICAL RECORDS. [employer] provides no warranty or guarantee of the accuracy or completeness of information in this document.
[2025-07-11] MEDS: Lactated Ringers 1,000 ML 50 ML IV (03:25)
[2025-07-11 03:41] LABS: Hematocrit 36.8 % (37-47); Hemoglobin 12.5 g/dL (12.0-15.0); Immature Granulocytes Count 0.040 X10^3/uL (0.0-0.0); Mean Corp Hgb Conc 34.0 g/dL (32-36); Mean Corpuscular Volume 86.6 fL (81-99); Mean Platelet Vol. 9.6 fl (6.2-12.0); NRBC Flagged by Analyzer 0 % (0-5); Platelet Count 208 K/mm3 (150-450); RBC Distribution Width CV 11.8 % (11.6-14.6); RBC Distribution Width SD 36.8 fl (35.1-43.9); Red Blood Count 4.25 M/mm3 (4.2-5.4); White Blood Count 7.9 K/mm3 (4.4-11.0)
[2025-07-11 04:23] LABS: Syphilis Antibodies Nonreactive (Nonreactive)
[2025-07-11 04:35] LABS: Color, Urine Yellow (Yellow); Glucose, Dipstick Normal (Normal); Ketone-Dipstick Negative (Negative); Leukocyte Esterase-Dipstick 500 /ul (Negative); Nitrite-Dipstick Negative (Negative); Occult Blood-Urine 250 /ul (Negative); Protein-Dipstick 100 mg/dl (Negative); Specific Gravity, Urine 1.015 (1.002-1.030); Urine Bilirubin Dipstick Negative (Negative)
--- NOTE | 2025-07-11 06:42 | PCM.HP.OB ---
HPI - General General Date of Admission: 07/11/25 HPI Narrative KARY GALVAN, is a 25 F at 36.5 who presents with having a gush of fluid, and soaking my clothes and pads. She denies any vaginal bleeding and has positive movements. Maternal Data Information KELLI Calculator Estimated Delivery Date Method Current WG Current Estimate 08/09/25 Manual 35w 6d PFSH PFSH Medical History (Updated 07/11/25 @ 06:53 by Shawna Wilson CNM) IBS (irritable bowel syndrome) Migraines Suicidal ideation Depression Anxiety Home Medications ?Medication ?Instructions ?Recorded ?Last Taken ?Type aspirin 81 mg chewable tablet 1 tab PO DAILY 07/11/25 07/10/25 22:00 History (Aspirin Childrens) famotidine 20 mg tablet (Acid 20 mg PO QHS 07/11/25 07/10/25 22:00 History Controller) sertraline 100 mg tablet (Zoloft) 100 mg PO DAILY 07/11/25 07/10/25 22:00 History Allergy/AdvReac Type Severity Reaction Status Date / Time No Known Allergies Allergy Verified 07/11/25 02:30 Social History Smoking Status: Never smoker History Elective abortions Hx Para 0 Spontaneous abortions Hx # Term Pregnancies Ectopic pregnancies Hx # Pregnancies Multiple births # of living children NST FHR Rate Baby A Baseline: 135 Variability:: Moderate Accelerations:: 15 x 15 Decelerations:: None NST Reactive:: Yes FHR Category:: Category I Uterine Activity:: irregular ROS Eyes Eyes: Denies blurry vision, change in vision or spots in vision ENT HEENT: Denies dizziness or headache(s) Cardiovascular Cardiovascular: Denies abdominal pain, chest pain or dyspnea Respiratory/Chest Respiratory/Chest: Denies cough, dyspnea, shortness of breath at rest or shortness of breath with exertion Gastrointestinal Gastrointestinal: Denies abdominal pain, diarrhea or vomiting Genitourinary Genitourinary: Denies change in urinary stream, difficulty urinating or dysuria Musculoskeletal Musculoskeletal: Reports none Integumentary Integumentary: Denies rash Neurologic Neurologic: Denies dizziness, headache(s), memory loss or weakness Psychiatric Psychiatric: Reports none Vital Signs Vital Signs Vital Signs: 07/11/25 02:40 07/11/25 02:40 07/11/25 02:40 Temperature Temperature Source Pulse Rate 75 Respiratory Rate Blood Pressure 102/67 BP Systolic 102 BP Diastolic 67 Pulse Ox 99 07/11/25 02:40 07/11/25 02:40 07/11/25 02:40 Temperature Temperature Source Temporal Pulse Rate Respiratory Rate 16 Blood Pressure BP Systolic BP Diastolic Pulse Ox 98 07/11/25 02:40 07/11/25 03:42 07/11/25 03:42 Temperature 98.5 F Temperature Source Pulse Rate 66 Respiratory Rate Blood Pressure 120/79 BP Systolic 120 BP Diastolic 79 Pulse Ox 07/11/25 03:42 07/11/25 03:42 07/11/25 03:42 Temperature Temperature Source Temporal Pulse Rate Respiratory Rate 16 Blood Pressure BP Systolic BP Diastolic Pulse Ox 100 07/11/25 03:42 07/11/25 03:42 07/11/25 04:24 Temperature 98.4 F Temperature Source Pulse Rate Respiratory Rate Blood Pressure 104/67 BP Systolic 104 BP Diastolic 67 Pulse Ox 100 07/11/25 04:24 07/11/25 04:24 07/11/25 04:24 Temperature Temperature Source Temporal Pulse Rate 60 Respiratory Rate 16 Blood Pressure BP Systolic BP Diastolic Pulse Ox 07/11/25 04:24 07/11/25 06:00 07/11/25 06:00 Temperature 97.7 F L Temperature Source Pulse Rate 72 Respiratory Rate Blood Pressure 114/74 BP Systolic 114 BP Diastolic 74 Pulse Ox 07/11/25 06:00 07/11/25 06:00 07/11/25 06:00 Temperature Temperature Source Temporal Pulse Rate Respiratory Rate 16 Blood Pressure BP Systolic BP Diastolic Pulse Ox 98 07/11/25 06:00 Temperature 98.1 F Temperature Source Pulse Rate Respiratory Rate Blood Pressure BP Systolic BP Diastolic Pulse Ox Weight Weight: 134 lb Body Mass Index (BMI) 24.5 Physical Exam Const alert, oriented x3 and no apparent distress General Appearance: cooperative Orientation / Consciousness: awake Exam Limitations: no limitations HEENT normocephalic Head and Scalp: normal to inspection Eyes General Eye: normal appearance of both eyes Neck full ROM and no lymphadenopathy Lymph Lymphatic: no lymphadenopathy noted Chest inspection of chest normal Resp normal respiratory effort, normal air movement and clear to auscultation bilaterally Effort and Inspection: able to speak in complete sentences and symmetric chest movement Cardio regular rate and regular rhythm GI normal to inspection, nondistended, normoactive bowel sounds Manual OB Exam: presentation cephalic Back/Spine normal ROM Extremity full ROM and no calf tenderness Skin no rashes or lesions noted General Skin Exam: no breakdown Neuro oriented x3 and CN's II-XII intact bilaterally Psych mental status grossly normal and thought process normal Labs Labs Labs: Blood Type O POSITIVE Antibody Screen NEGATIVE Hct, (37-47) 36.8 % L Hgb, (12.0-15.0) 12.5 g/dL Syphilis Total Ab, (Nonreactive) Nonreactive Assessment & Plan (1) PROM (premature rupture of membranes): (2) premature rupture of membranes (PPROM) with onset of labor within 24 hours of rupture in third trimester, antepartum: (3) Depression with anxiety: (4) History of migraine: (5) 35 weeks gestation of : PLAN: Plan Arrived to unit and was grossly ruptured for clear fluid PPROM at 0100 CE 1.5 cm Admit to labor and delivery Routine labs Cytotec 25 mcg PO every 4 hours x 6 doses total GBS UNKNOWN- start PCN protocol when active labor Pain control
[2025-07-11] MEDS: 0.9% Normal Saline Single 100 ML IV.SOLN. INTRA-UTER (07:30)
[2025-07-11] MEDS: Oxytocin 15 Units/NS 250ml 15 UNITS/250 ML IV.SOLN 2 UNITS IV (09:11)
[2025-07-11] MEDS: Penicillin G Pot 5,000,000 UNITS in 0.9% Normal Saline (100mL MB+) 100 ML 150 UNITS IV (09:11)
[2025-07-11] MEDS: Lactated Ringers 1,000 ML 999 ML IV ×3 (12:18→19:43)
[2025-07-11] MEDS: fentaNYL-bupivacaine (epidural) 100 ML BAG EPIDURAL (13:47)
[2025-07-11] MEDS: Penicillin G 3,000,000 Units 50 ML 100 UNITS IV ×2 (14:23→18:19)
--- NOTE | 2025-07-11 18:15 | PCM.PN.OB ---
Subjective Subjective Resting comfortable in bed. Partner at bedside. Epidural for pain management. Objective Data Objective Data Vital Signs: Vital Signs Temp Pulse Resp BP Pulse Ox 98.1 F 83 16 101/60 100 07/11/25 17:35 07/11/25 17:37 07/11/25 17:35 07/11/25 17:37 07/11/25 16:28 Weight: 134 lb Body Mass Index (BMI) 24.5 Intake & Output: Intake and Output for Last 24 Hours 07/09/25 07/10/25 07/11/25 23:59 23:59 23:59 Intake Total 1700.33 / 1700.33 Output Total 801 / 801 Balance 899.33 / 899.33 Lab / Micro Data 07/11/25 03:25 Labs: Laboratory Results - last 24 hr 07/11/25 02:45: Vag Amniotic Fld Detect POSITIVE H 07/11/25 03:25: WBC 7.9, RBC 4.25, Hgb 12.5, Hct 36.8 L, MCV 86.6, MCH 29.4, MCHC 34.0, RDW Std Deviation 36.8, RDW Coeff of Mason 11.8, Plt Count 208, MPV 9.6, Immature Gran % (Auto) 0.500, Neut % (Auto) 61.4, Lymph % (Auto) 28.9, [place] % (Auto) 8.2, Eos % (Auto) 0.5, Baso % (Auto) 0.5, Absolute Neuts (auto) 4.9, Absolute Lymphs (auto) 2.28, Nucleated RBC % 0, Syphilis Total Ab Nonreactive, Blood Type O POSITIVE, Antibody Screen NEGATIVE 07/11/25 04:25: Urine Color Yellow, Urine Clarity Cloudy, Urine pH 8.0, Ur Specific [place] 1.015, Urine Protein 100 H, Urine Glucose (UA) Normal, Urine Ketones Negative, Urine Occult Blood 250 H, Urine Nitrite Negative, Urine Bilirubin Negative, Urine Urobilinogen Normal, Ur Leukocyte Esterase 500 H Micro: Microbiology 07/11/25 03:30 Genital vaginal Group B Streptococcus (PCR) - Final Physical Exam Manual OB Exam: presentation cephalic, dilated 8, effaced 90 and station +1 NST FHR Rate Baby A Baseline: 150 Variability:: Moderate Accelerations:: 15 x 15 Decelerations:: None FHR Category:: Category I Uterine Activity:: Every 2-3 minutes, strong Assessment & Plan (1) Active labor: (2) PROM (premature rupture of membranes): (3) 35 weeks gestation of : PLAN: Plan 1) Progressing, continue active management 2) Epidural for pain management 3) updated on above patient status, assessment, and plan of care.
[2025-07-11] MEDS: LACTATED RINGERS 500 ML 999 ML IV (19:30)
[2025-07-11] MEDS: Oxytocin 15 Units/NS 250ml 15 UNITS/250 ML IV.SOLN 999 UNITS IV (19:43)
[2025-07-11] MEDS: TRANEXAMIC ACID 1,000 MG in 0.9% Normal Saline (100mL Bag) 100 ML 440 MG IV (19:51)
[2025-07-11] MEDS: 0.9% Saline Lock 10 ML Syringe IV (20:05)
--- NOTE | 2025-07-11 20:35 | OB.VAGDELI_ITS ---
Assessment & Plan (1) Vaginal delivery: (2) hemorrhage: (3) First degree perineal laceration: Maternal Data Information KELLI Calculator Estimated Delivery Date Method Current WG Current Estimate 08/09/25 Manual 35w 6d Vaginal Delivery Maternal Presentation Maternal Presentation: Spontaneous Rupture of Membranes Maternal Presentation: PROM Type of Induction: Pitocin (augmentation) Vaginal Delivery Information Procedure Performed: Spontaneous Vaginal Delivery Surgeon/Practitioner: Melody Sauer Date of Procedure: 07/11/25 Pre-Procedure Diagnosis: PROM, Post-Procedure Diagnosis: , hemorrhage, first degree laceration Type of anesthesia: Epidural Estimated Blood Loss: 800ml Time of Delivery: 19:18 Findings Description of procedure: Progressed to complete with urge to push. Epidural for pain management. of viable male infant over first degree perineum . APGARS 8,9 respectively. head delivered with body immediately forthcoming. Placed on maternal abdomen, strong cry. Mouth and nares suctioned for secretions. Pitocin started for active 3rd stage management. Cord doubly clamped and cut by FOB after pulsations ceased, delayed cord clamping. Placenta delivered intact via horn, 3 vessel cord intact. Perineum inspected and revealed first degree perineal laceration. Repaired with 3.0 vicryl rapide and epidural. Increased bleeding, Methergine, cytotec, and TXA given. Bimanual compression. Further visulizatoin and vagina with multiple small bleeding superficial lacerations. Attempted to suture for hemostasis but only worsened. No cervical laceration and fundus firm. Vaginal packing and robins catheter inserted. Fundus firm and hemostasis achieved. EBL 800ml. Vaginal sweep completed by me, sponge and instrument correct. Mom and baby stable, planning to breastfeed. Family bonding well. notified of delivery. Presentation: Vertex Amniotic Membrane Rupture Type: Spontaneous Amniotic Fluid Description: Clear Placental Delivery Description: Spontaneous Placenta Disposition: [facility] Specimen collected: No Cord Vessel Description: 3 Vessels Cord Entanglement: None Infant A Gender: Male (1 minute): 8 (5 minute): 9 Delayed Cord Clamping: Yes Business Insurance Agent clerical investigator: No Post Vaginal Deli Medications given after delivery: IV Pitocin, IM Methergin and Other (cytotec and TXA. ) Episiotomy Description: None Laceration: Perineal Extension/lac (continued bleeding and worsening with suturing. Vaginal packing placed. ) and 1st degree Complication Complications: Yes Complication Details: PPH
[2025-07-12] VITALS (9 sets, daily range): BP systolic 87–112; BP diastolic 52–78; PULSE 67–91; RESP 16; TEMP 36.5–37; O2SAT 96–100
[2025-07-12 00:43] LABS: Hematocrit 26.6 % (37-47); Hemoglobin 9.5 g/dL (12.0-15.0); Immature Granulocytes Count 0.130 X10^3/uL (0.0-0.0); Mean Corp Hgb Conc 35.7 g/dL (32-36); Mean Corpuscular Volume 83.9 fL (81-99); Mean Platelet Vol. 9.8 fl (6.2-12.0); NRBC Flagged by Analyzer 0 % (0-5); Platelet Count 158 K/mm3 (150-450); RBC Distribution Width CV 11.9 % (11.6-14.6); RBC Distribution Width SD 36.0 fl (35.1-43.9); Red Blood Count 3.17 M/mm3 (4.2-5.4); White Blood Count 19.6 K/mm3 (4.4-11.0)
[2025-07-12 04:58] LABS: Xtra Tube EP Lab EXTRA TUBE
[2025-07-12 06:49] LABS: Hematocrit 25.7 % (37-47); Hemoglobin 8.7 g/dL (12.0-15.0); Immature Granulocytes Count 0.100 X10^3/uL (0.0-0.0); Mean Corp Hgb Conc 33.9 g/dL (32-36); Mean Corpuscular Volume 86.5 fL (81-99); Mean Platelet Vol. 9.6 fl (6.2-12.0); NRBC Flagged by Analyzer 0 % (0-5); Platelet Count 161 K/mm3 (150-450); RBC Distribution Width CV 11.9 % (11.6-14.6); RBC Distribution Width SD 37.2 fl (35.1-43.9); Red Blood Count 2.97 M/mm3 (4.2-5.4); White Blood Count 17.6 K/mm3 (4.4-11.0)
--- NOTE | 2025-07-12 08:49 | PN.OBGYN_ITS ---
Subjective Subjective Denies complaints. Objective Data Objective Data Vital Signs: Vital Signs Temp Pulse Resp BP Pulse Ox O2 Del Method 97.7 F L 67 16 102/67 97 Room Air 07/12/25 03:23 07/12/25 03:23 07/12/25 03:23 07/12/25 03:23 07/12/25 03:23 07/12/25 03:23 Oxygen Delivery Method Room Air Weight: 134 lb Body Mass Index (BMI) 24.5 Intake & Output: Intake and Output for Last 24 Hours 07/10/25 07/11/25 07/12/25 23:59 23:59 23:59 Intake Total 5082.80 / 5082.80 Output Total 2301 / 2301 800 / 800 Balance 2781.80 / 2781.80 -800 / -800 Lab / Micro Data 07/12/25 06:30 Labs: Laboratory Results - last 24 hr 07/12/25 00:10: WBC 19.6 H, RBC 3.17 L, Hgb 9.5 L, Hct 26.6 L, MCV 83.9, MCH 30.0, MCHC 35.7, RDW Std Deviation 36.0, RDW Coeff of Mason 11.9, Plt Count 158, MPV 9.8, Immature Gran % (Auto) 0.700, Neut % (Auto) 89.2 H, Lymph % (Auto) 5.9 L, [place] % (Auto) 4.0, Eos % (Auto) 0.0, Baso % (Auto) 0.2, Absolute Neuts (auto) 17.5 H, Absolute Lymphs (auto) 1.16, Nucleated RBC % 0 07/12/25 06:30: WBC 17.6 H, RBC 2.97 L, Hgb 8.7 L, Hct 25.7 L, MCV 86.5, MCH 29.3, MCHC 33.9 D, RDW Std Deviation 37.2, RDW Coeff of Mason 11.9, Plt Count 161, MPV 9.6, Immature Gran % (Auto) 0.600, Neut % (Auto) 83.7 H, Lymph % (Auto) 10.9 L, [place] % (Auto) 4.5, Eos % (Auto) 0.1, Baso % (Auto) 0.2, Absolute Neuts (auto) 14.7 H, Absolute Lymphs (auto) 1.92, Nucleated RBC % 0 Micro: Microbiology 07/11/25 03:30 Genital vaginal Group B Streptococcus (PCR) - Final Physical Exam Const alert, oriented x3 and no apparent distress HEENT normocephalic GI soft to palpation, non-tender and non-distended GI Narrative: fundus firm, mid & below umbilicus Extremity normal to inspection and no calf tenderness Assessment & Plan (1) Vaginal delivery: COMMENT: PPD#1 (2) hemorrhage: QUALIFIERS: hemorrhage type: unspecified Qualified Code(s): O72.1 - Other immediate hemorrhage PLAN: Plan Heme - HDS. Anemia for acute blood loss. start PO iron. Vaginal packing removed. - RN to remove robins. Routine PP care.
[2025-07-12] MEDS: GLYCERIN/WITCH HAZEL (TUCKS) MED..PAD 1 EACH TOPICAL ×2 (11:56→22:39)
[2025-07-12] MEDS: SELF ADMINISTRATION OF MEDS 1 EACH NOTE (22:46)
[2025-07-13 02:00] VITALS: BP 99/61; PULSE 60; RESP 16; TEMP 36.6; O2SAT 100
[2025-07-13 07:25] VITALS: BP 103/69; PULSE 67; RESP 18; TEMP 36.3; O2SAT 100
--- NOTE | 2025-07-13 08:42 | PCM.PN.OB ---
Subjective Subjective Doing well. Ambulating and voiding without difficulty. Mild lochia. Breast feeding/pumping. Baby in SCN for Temp and BG. Plans a dose of IV iron and then discharge to hotel. Objective Data Objective Data Vital Signs: Vital Signs Temp Pulse Resp BP Pulse Ox O2 Del Method 98 F 60 16 99/61 100 Room Air 07/13/25 02:00 07/13/25 02:00 07/13/25 02:00 07/13/25 02:00 07/13/25 02:00 07/13/25 02:00 Oxygen Delivery Method Room Air Weight: 60.781 kg Body Mass Index (BMI) 24.5 Intake & Output: Intake and Output for Last 24 Hours 07/11/25 07/12/25 07/13/25 23:59 23:59 23:59 Intake Total 5082.80 / 5082.80 Output Total 2301 / 2301 1700 / 1700 Balance 2781.80 / 2781.80 -1700 / -1700 Lab / Micro Data 07/12/25 06:30 Micro: Microbiology 07/11/25 03:30 Genital vaginal Group B Streptococcus (PCR) - Final Physical Exam Const alert and no apparent distress Narrative: Fundus firm, below umbilicus. Assessment & Plan (1) Vaginal delivery: COMMENT: PPD#2 (2) hemorrhage: QUALIFIERS: hemorrhage type: unspecified Qualified Code(s): O72.1 - Other immediate hemorrhage (3) Acute blood loss anemia: PLAN: IV iron PLAN: Plan Discharge to hotel status
--- NOTE | 2025-07-13 08:45 | PCM.DC.SUM ---
Providers Date of Admission: 07/11/25 Date of Discharge: 07/13/25 Primary Care Physician: Ernestina Primary Care Phys Reason For Visit: VAG Diagnosis Discharge Diagnosis (1) Vaginal delivery: Status: Acute Code(s): O80 - Encounter for full-term uncomplicated delivery (2) hemorrhage: Status: Acute Code(s): O72.1 - Other immediate hemorrhage Qualifiers: hemorrhage type: unspecified Qualified Code(s): O72.1 - Other immediate hemorrhage (3) Acute blood loss anemia: Status: Acute Code(s): D62 - Acute posthemorrhagic anemia Plan: IV iron Plan Discharge to hotel status Medications at Discharge Home Medications famotidine 20 mg tablet (Acid Controller) 20 mg PO QHS 07/11/25 sertraline 100 mg tablet (Zoloft) 100 mg PO DAILY 07/11/25 Hospital Course Operations None Procedures None Summary of Care Provided Minutes Spent on Discharge: 20 Hospital Course: Admitted for PPROM. with PPH. Received IV iron. Physical Exam Const alert and no apparent distress Narrative: Fundus firm, below umbilicus. Weight / BMI Weight Weight: 60.781 kg Body Mass Index (BMI) 24.5 ABG / Lab / Microbiology Data 07/12/25 06:30 Microbiology: Microbiology 07/11/25 03:30 Genital vaginal Group B Streptococcus (PCR) - Final D/C Instructions May resume sexual activity in: 6 weeks DC O2, CPAP, BIPAP Needs Home O2 Discharge instructions: No Please Follow Up With: Olga Hampton MD When: Follow up with our office in 1-2 and 6 weeks or as needed. [phone] Meaningful Use Info Meaningful Use Meaningful Use Diagnoses (Choose all that apply): None applicable Discharge Plan Admission Admit Date/Time: 07/11/25 02:57 Primary Reason for Your Visit: Labor Attending Provider: Melody Sauer Primary Care Provider: Care Physician,Ernestina Primary Discharge Orders/Prescriptions Prescriptions: Continued famotidine [Acid Controller] 20 mg tablet 20 mg PO QHS sertraline [Zoloft] 100 mg tablet 100 mg PO DAILY Discontinued aspirin [Aspirin Childrens] 81 mg tablet,chewable 1 tab PO DAILY Referrals / Follow Up: Care Physician,No Primary [Primary Care Provider, Medical] Disposition Disposition (needs filled in before D/C Order can be placed): Home, Self Care
--- NOTE | 2025-07-13 09:13 | NURSING ---
0800-read and agree with student Luiza mckeon. fundus firm @ midline
[2025-07-13] MEDS: SELF ADMINISTRATION OF MEDS 1 EACH NOTE ×2 (10:30→18:05)
[2025-07-13] MEDS: Iron Sucrose Complex 200 MG in 0.9% Normal Saline (100mL Bag) 100 ML 220 MG IV (12:13)
[2025-07-13 12:20] VITALS: BP 95/73; PULSE 72; RESP 18; TEMP 36.6; O2SAT 100
[2025-07-13] MEDS: 0.9% Saline Lock 10 ML Syringe IV (12:43)
[2025-07-13 17:51] VITALS: BP 98/71; PULSE 91; RESP 18; TEMP 36.9; O2SAT 100
[2025-07-13] MEDS: GLYCERIN/WITCH HAZEL (TUCKS) MED..PAD 1 EACH TOPICAL (18:05)
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
--- NOTE | 2025-07-18 14:55 | NURSING ---
Follow up phone call made, no answer, left voicemail
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
== END 2025-07-13 18:19 | disposition home or self-care (01) | DRG 806 ==
PROVIDERS: Advanced Practice Midwife; Admitting Provider Advanced Practice Midwife; Referring Provider Advanced Practice Midwife; Visit Provider Advanced Practice Midwife
DX: O42.013 Preterm premature rupture of membranes, onset of labor within 24 hours of rupture, third trimester (principal); Z37.0 Single live birth; D62 Acute posthemorrhagic anemia; O72.1 Other immediate postpartum hemorrhage; F32.A Depression, unspecified; F41.9 Anxiety disorder, unspecified; O70.0 First degree perineal laceration during delivery; O99.344 Other mental disorders complicating childbirth; O90.81 Anemia of the puerperium; Z3A.36 36 weeks gestation of pregnancy; Z79.82 Long term (current) use of aspirin; Z79.899 Other long term (current) drug therapy
CPT/HCPCS: 59025; 59050; 81002; 84112; 85025; 86780; 86850; 86900; 86901; 87081; 87653; 99221; J1756; A4216; G0378; J2405